=== PATIENT | male | born 1975 | race Caucasian/White ===

== ENCOUNTER 2024-02-22 16:45 | Emergency (ER) | payer OTHER, SELFPAY ==
--- NOTE | 2024-02-22 16:47 | ED.URI ---
HPI - URI/Sore Throat General Chief Complaint: Unspecified Stated Complaint: SOB,dizzy Time Seen by Provider: 02/22/24 16:47 Source: patient Mode of arrival: ambulatory Limitations: no limitations History of Present Illness HPI Narrative: Patient is a 48-year-old male who presents with 3 days of intermittent shortness of breath and 1 day of dizziness. Patient reports dizziness is upon standing. Denies the room spinning. Denies any changes in vision or headaches. Reports shortness of breath is sometimes with exertion and sometimes at rest. Denies any upper respiratory in symptoms, fever, chills, nausea, vomiting. Patient has reported frequent diarrhea. Patient stop taking metformin a month ago and stopped his Trulicity a week and half ago. Patient also reports abnormal salty taste in mouth when eating anything. Patient has had 30 lb weight loss in the last 3 months. Related Data Allergies Allergy/AdvReac Type Severity Reaction Status Date / Time Penicillins AdvReac Mild NAUSEA Verified 02/22/24 16:47 Review of Systems Review of Systems: All systems reviewed & are unremarkable except as noted in HPI and below Constitutional: Constitutional: Denies body ache(s), Denies chills, Denies fatigue, Denies fever(s), Denies headache(s), Denies malaise and Denies weakness Eyes: Eyes: Denies blurry vision, Denies itchy eyes and Denies loss of vision ENT: Denies otalgia, Denies headache(s), Denies nasal congestion, Denies sinus pain and Denies sore throat Cardiovascular: Cardiovascular: Denies chest pain, Denies irregular heart rhythm and Denies dyspnea Respiratory: Respiratory: Denies cough and Reports dyspnea Gastrointestinal: Gastrointestinal: Denies abdominal pain, Reports diarrhea, Denies nausea and Denies vomiting Musculoskeletal: Musculoskeletal: Denies back pain, Denies myalgias and Denies arthralgias Integumentary/Breasts: Skin/Breast: Denies pruritus and Denies rash Neurologic: Reports dizziness, Denies headache(s), Denies loss of vision and Denies weakness Psychiatric: Psychiatric: Reports no additional psychiatric complaints Endocrine: Endocrine: Denies fatigue Allergic/Immunologic: Allergic/Immunologic: Denies itchy eyes PMFSH Comments At time of signature, agree with nursing past medical, surgical, social and family history. There is no relevant family history pertinent to the presenting complaint. Exam Const: General: cooperative, healthy appearing, comfortable, no acute distress and well nourished Nutritional Appearance: well nourished Orientation/consciousness: patient oriented x3 Limitations: no limitations HENMT: Head: normal to inspection, normocephalic and atraumatic Ears: hearing grossly normal bilaterally, external ears normal, TM's normal bilaterally, EAC's normal and no periauricular adenopathy Face/Nose/Sinus: Normal external nose present, Normal nasal mucous membranes and turbinates present, normal facial exam, sinuses nontender and face symmetric Face and sinus: normal facial exam, sinuses nontender and face symmetric Mouth: Yes Normal oral and palatal mucosa present, Yes lip normal, Yes tongue normal, Yes Normal salivary glands and ducts present, Yes oropharynx normal and Yes moist mucous membranes Teeth and gingiva: dentition normal Throat: posterior oropharynx normal, tonsils normal and uvula midline Eyes: General: appearance normal, both eyes and all related structures Alignment and Position: alignment normal and position normal Periorbital: periorbital findings normal Eyelids: eyelids normal Pupils: Equal, round and reactive pupils present Neck: Neck: normal visual inspection, full ROM, no lymphadenopathy and supple Chest: Chest palpation & inspection: normal inspection of the chest and normal palpation of entire chest wall Resp: Effort & Inspection: normal respiratory effort and able to speak in complete sentences Auscultation: clear to auscultation bilaterally, no crackles, no rales, n
[2024-02-22 16:59] VITALS: BP 106/75; PULSE 83; RESP 16; TEMP 36.7; O2SAT 100
== END 2024-02-22 17:14 | disposition short-term general hospital (02) ==
PROVIDERS: Emergency Provider Nurse Practitioner Family; PCP Nurse Practitioner Family
DX: R42 Dizziness and giddiness (principal); R06.02 Shortness of breath; E11.9 Type 2 diabetes mellitus without complications
CPT/HCPCS: 99212; G0463

== ENCOUNTER 2024-02-22 17:32 | Emergency (ER) | payer OTHER, SELFPAY ==
--- NOTE | ~2024-02-22 | XR_ITS ---
EXAMINATION: XR chest 2V DATE: 02/22/2024 18:14 INDICATION: Dyspnea. TECHNIQUE: Frontal and lateral views of the chest were obtained. COMPARISON: None. FINDINGS: There is no pneumonia, pleural effusion, or pneumothorax. The heart size is normal. IMPRESSION: 1. No acute cardiopulmonary disease. Reviewed, dictated and finalized at location E.
[2024-02-22 17:33] VITALS: BP 125/78; PULSE 98; RESP 16; TEMP 36.1; O2SAT 98
--- NOTE | 2024-02-22 17:38 | ECG_ITS ---
SEE SCANNED COPY FOR CONFIRMED REPORT MTDD
--- NOTE | 2024-02-22 17:39 | ED.DIZZY ---
HPI - Dizziness General Chief Complaint: Dizziness <Lashaun Toney PA-C - Last Filed: 02/22/24 18:29> Stated Complaint: sob, dizzy <Lashaun Toney PA-C - Last Filed: 02/22/24 18:29> Time Seen by Provider: 02/22/24 18:57 <Lashaun Toney PA-C - Last Filed: 02/22/24 18:29> Focused HPI: 48-year-old male with history of type 2 diabetes presents to the emergency department for shortness of breath and lightheadedness for the past 3 days. He denies cough or congestion, chest pain or syncope, nausea or vomiting. He states he discontinued his metformin and Trulicity approximately 1 month ago due to side effects and insurance issues. Denies dysuria or hematuria, fever, lower extremity edema or history of VTE, Hemoptysis, recent surgeries or hospitalizations, syncope. Denies history of COPD or asthma, smoking, drug or alcohol use. States he has not been eating or drinking well. GENERAL: Well-appearing, well-nourished, and in no acute distress. HEAD: Normocephalic, atraumatic. CHEST: Clear to auscultation. ?No respiratory distress. HEART: Regular rate and rhythm.? EXTREMITIES: No edema, negative Homans bilaterally. NEURO: ?Alert and oriented x3. Patient screened in triage and initial orders placed.? ?Additional care and disposition to be based upon?diagnostic testing and treatment. He is PERC negative. <Lashaun Toney PA-C - Last Filed: 02/22/24 18:29> Related Data Allergies/Adverse Reactions: Allergies Allergy/AdvReac Type Severity Reaction Status Date / Time Penicillins AdvReac Mild NAUSEA Verified 02/22/24 16:47 <Lashaun Toney PA-C - Last Filed: 02/22/24 18:29> Review of Systems Review of Systems: All systems reviewed & are unremarkable except as noted in HPI and below (HPI) <Humberto Henry MD - Last Filed: 02/22/24 22:44> PMFSH Past Medical History Medical History: Medical History T2DM (type 2 diabetes mellitus) <Lashaun Toney PA-C - Last Filed: 02/22/24 18:29> Surgical History Surgical History: Surgical History History of colectomy <Lashaun Toney PA-C - Last Filed: 02/22/24 18:29> Exam Narrative: GENERAL: Well-developed, well-nourished, and in no acute distress. HEAD: Normocephalic, atraumatic. EYES: PERRLA and EOMI. CHEST: Clear to auscultation. No respiratory distress. No wheezes rales or rhonchi HEART: Regular rate and rhythm. No murmur heard. Normal peripheral pulses. ABDOMEN: Soft, nontender, nondistended, normal active bowel sounds. EXTREMITIES: Normal range of motion. No edema. SKIN: Warm, dry, no rash. NEURO: Alert and oriented x3. No focal deficit. Moving all 4 limbs spontaneously PSYCH: Normal mood and affect. <Humberto Henry MD - Last Filed: 02/22/24 22:44> Course Course Emergency Course: 19:10 - I agree with the HPI as obtained during the MSE. CBC unremarkable. CMP demonstrates hypokalemia with potassium of 2.1. Repletion on going. Total bilirubin slightly elevated 1.6 but is otherwise unremarkable. Troponin negative. Chest x-ray not concerning for acute cardiopulmonary process. The patient tested negative for influenza, RSV and COVID. Bedside ultrasound for by me is not concerning for B-lines on lung mehta. Parasternal long axis view was technically difficult, unable to assess ePSS. Will add BNP, re-evaluate chemistries after the potassium repletion with plan for discharge. 22:39 - Repeat potassium improved to 2.6. I discussed treatment options with the patient including discharge with oral supplementation versus admission for IV repletion. The patient prefers to be discharged. I discussed the findings and recommendations with the patient. Discussed return and emergency precautions including signs/symptoms of ACS, respiratory distress. The patient voiced understanding and agreement with the plan. All questions answered to his satisfaction. <Humberto Henry MD - Last Filed: 02/22/24 22:44> Vital Signs Vital signs: Vital Signs Temperature 97.0 F L 02/22/24 17:33 Pulse Rate 98 02/22/24 17:33 Respiratory Rate 16 02/22/24 17:33 Blood Pressure 125/78 02/22/24 17:33 Pulse Oximetry 98 02/22/24 17:33 Oxygen Delivery Room Air 02/22/24 17:33 Temperature 97.0 F L 02/22/24 17:33 Pulse Rate 86 02/22/24 21:36 Respiratory Rate 18 02/22/24 21:36 Blood Pressure 126/83 02/22/24 21:36 Pulse Oximetry 100 02/22/24 21:36 Oxygen Delivery Room Air 02/22/24 17:33 <Lashaun Toney PA-C - Last Filed: 02/22/24 18:29> Vital Signs Temperature 97.0 F L 02/22/24 17:33 Pulse Rate 98 02/22/24 17:33 Respiratory Rate 16 02/22/24 17:33 Blood Pressure 125/78 02/22/24 17:33 Pulse Oximetry 98 02/22/24 17:33 Oxygen Delivery Room Air 02/22/24 17:33 Temperature 97.0 F L 02/22/24 17:33 Pulse Rate 86 02/22/24 21:36 Respiratory Rate 18 02/22/24 21:36 Blood Pressure 126/83 02/22/24 21:36 Pulse Oximetry 100 02/22/24 21:36 Oxygen Delivery Room Air 02/22/24 17:33 <Humberto Henry MD - Last Filed: 02/22/24 22:44> MDM - Dizziness MDM Narrative Medical decision making narrative: Plan: Labs, EKG, troponin BNP, imaging, bedside ultrasound, reassess <Humberto Henry MD - Last Filed: 02/22/24 22:44> Differential Diagnosis Differential diagnosis: Likely orthostatic hypotension and other (Metabolic abnormality, ACS, CHF, anemia, other) <Humberto Henry MD - Last Filed: 02/22/24 22:44> Lab Data Result diagrams: 02/22/24 17:54 02/22/24 22:09 <Lashaun Toney PA-C - Last Filed: 02/22/24 18:29> Labs: Lab Results 02/22/24 02/22/24 02/22/24 Range/Units 17:54 17:57 19:26 WBC 5.0 (4.5-10.0) K/mm3 RBC 4.90 (4.6-6.20) M/mm3 Hgb 14.2 (14.0-18.0) g/dL Hct 40.6 L (42.0-52.0) % MCV 82.9 (80-100) fl MCH 29.0 (26-34) pg MCHC 35.0 (32-36) g/dl RDW 13.8 (11.5-14.5) % Plt Count 142 L (150-375) k/mm3 MPV 11.9 H (7.4-10.4) fl Immature Gran % (Auto) 0.2 (0-0.5) % Neut % (Auto) 50.7 (45.5-73.1) % Lymph % (Auto) 35.8 (18.3-44.2) % [place] % (Auto) 8.1 (2.6-8.5) % Eos % (Auto) 4.8 H (0-4.4) % Baso % (Auto) 0.4 (0.2-1.2) % Lymph # (Auto) 1.77 (0.9-3.2) K/mm3 [place] # (Auto) 0.4 (0.1-0.6) K/mm3 Eos # (Auto) 0.2 (0-0.3) K/mm3 Baso # (Auto) 0.0 (0.0-0.1) K/mm3 Abs Immat Gran (auto) 0.01 (0.00-0.031) K/mm3 Absolute Neuts (auto) 2.5 (1.3-6.7) K/mm3 Absolute Nucleated RBC 0.000 (0.0-0.012) K/mm3 Nucleated RBC % 0.0 (0.0-0.2) % PT 14.6 (11.1-14.7) Seconds INR 1.1 APTT 28.3 (22.3-36.8) Seconds Sodium 141 (137-145) mmol/L Potassium 2.1 L* (3.4-5.0) mmol/L Chloride 103 (98-107) mmol/L Carbon Dioxide 30 (22-30) mmol/L Anion Gap 8 (4-12) mmol/L BUN 15 (9-20) mg/dL Creatinine 0.70 (0.7-1.3) mg/dL Estim Creat Clear Calc 114 ml/min Estimated GFR > 60 (59 - ) Glucose 125 H (65-110) mg/dL Lactic Acid 1.2 (0.7-2.0) mmol/L Calcium 8.7 (8.4-10.2) mg/dL Magnesium 1.9 (1.6-2.3) mg/dL Total Bilirubin 1.6 H (0.2-1.3) mg/dL AST 37 (17-59) U/L ALT 25 (6-50) U/L Alkaline Phosphatase 112 (38-126) U/L Troponin I < 0.012 (0.000-0.034) ng/mL NT-Pro-B Natriuret Pep 60 (19.9-100) pg/mL Total Protein 7.0 (6.3-8.2) g/dL Albumin 4.0 (3.5-5.1) g/dL Urine Color Dark yellow (Yellow) Urine Appearance Cloudy H (Clear) Urine pH 6.5 (5.0-9.0) Ur Specific [place] 1.020 (1.001-1.035) Urine Protein 2+ H (Negative) mg/dL Urine Glucose (UA) Negative (Negative) mg/dL Urine Ketones Trace H (Negative) mg/dL Ur Blood (Man) 3+ H (Negative) Urine Nitrate Negative (Negative) Urine Bilirubin 1+ H (Negative) Urine Urobilinogen 1.0 (<2.0) mg/dL Leukocyte Esterase Rfl Trace H (Negative) ASHU/UL Urine RBC >100 H (0-2) /hpf Urine WBC 6-10 H (0-3) /hpf Ur Squamous Epith Cells Moderate (Few) /hpf Urine Bacteria None seen /hpf Urine Casts >20 Hyaline Casts Present (None) /lpf Influenza A (RT-PCR) Negative (Negative) Influenza B (RT-PCR) Negative (Negative) RSV (RT-PCR) Negative (Negative) SARS-CoV-2 RNA (RT-PCR) Negative (Negative) 02/22/24 Range/Units 22:09 WBC (4.5-10.0) K/mm3 RBC (4.6-6.20) M/mm3 Hgb (14.0-18.0) g/dL Hct (42.0-52.0) % MCV (80-100) fl MCH (26-34) pg MCHC (32-36) g/dl RDW (11.5-14.5) % Plt Count (150-375) k/mm3 MPV (7.4-10.4) fl Immature Gran % (Auto) (0-0.5) % Neut % (Auto) (45.5-73.1) % Lymph % (Auto) (18.3-44.2) % [place] % (Auto) (2.6-8.5) % Eos % (Auto) (0-4.4) % Baso % (Auto) (0.2-1.2) % Lymph # (Auto) (0.9-3.2) K/mm3 [place] # (Auto) (0.1-0.6) K/mm3 Eos # (Auto) (0-0.3) K/mm3 Baso # (Auto) (0.0-0.1) K/mm3 Abs Immat Gran (auto) (0.00-0.031) K/mm3 Absolute Neuts (auto) (1.3-6.7) K/mm3 Absolute Nucleated RBC (0.0-0.012) K/mm3 Nucleated RBC % (0.0-0.2) % PT (11.1-14.7) Seconds INR APTT (22.3-36.8) Seconds Sodium (137-145) mmol/L Potassium 2.6 L* (3.4-5.0) mmol/L Chloride (98-107) mmol/L Carbon Dioxide (22-30) mmol/L Anion Gap (4-12) mmol/L BUN (9-20) mg/dL Creatinine (0.7-1.3) mg/dL Estim Creat Clear Calc ml/min Estimated GFR (59 - ) Glucose (65-110) mg/dL Lactic Acid (0.7-2.0) mmol/L Calcium (8.4-10.2) mg/dL Magnesium (1.6-2.3) mg/dL Total Bilirubin (0.2-1.3) mg/dL AST (17-59) U/L ALT (6-50) U/L Alkaline Phosphatase (38-126) U/L Troponin I (0.000-0.034) ng/mL NT-Pro-B Natriuret Pep (19.9-100) pg/mL Total Protein (6.3-8.2) g/dL Albumin (3.5-5.1) g/dL Urine Color (Yellow) Urine Appearance (Clear) Urine pH (5.0-9.0) Ur Specific [place] (1.001-1.035) Urine Protein (Negative) mg/dL Urine Glucose (UA) (Negative) mg/dL Urine Ketones (Negative) mg/dL Ur Blood (Man) (Negative) Urine Nitrate (Negative) Urine Bilirubin (Negative) Urine Urobilinogen (<2.0) mg/dL Leukocyte Esterase Rfl (Negative) ASHU/UL Urine RBC (0-2) /hpf Urine WBC (0-3) /hpf Ur Squamous Epith Cells (Few) /hpf Urine Bacteria /hpf Urine Casts Hyaline Casts (None) /lpf Influenza A (RT-PCR) (Negative) Influenza B (RT-PCR) (Negative) RSV (RT-PCR) (Negative) SARS-CoV-2 RNA (RT-PCR) (Negative) <Lashaun Toney PA-C - Last Filed: 02/22/24 18:29> Lab Results 02/22/24 02/22/24 02/22/24 Range/Units 17:54 17:57 19:26 WBC 5.0 (4.5-10.0) K/mm3 RBC 4.90 (4.6-6.20) M/mm3 Hgb 14.2 (14.0-18.0) g/dL Hct 40.6 L (42.0-52.0) % MCV 82.9 (80-100) fl MCH 29.0 (26-34) pg MCHC 35.0 (32-36) g/dl RDW 13.8 (11.5-14.5) % Plt Count 142 L (150-375) k/mm3 MPV 11.9 H (7.4-10.4) fl Immature Gran % (Auto) 0.2 (0-0.5) % Neut % (Auto) 50.7 (45.5-73.1) % Lymph % (Auto) 35.8 (18.3-44.2) % [place] % (Auto) 8.1 (2.6-8.5) % Eos % (Auto) 4.8 H (0-4.4) % Baso % (Auto) 0.4 (0.2-1.2) % Lymph # (Auto) 1.77 (0.9-3.2) K/mm3 [place] # (Auto) 0.4 (0.1-0.6) K/mm3 Eos # (Auto) 0.2 (0-0.3) K/mm3 Baso # (Auto) 0.0 (0.0-0.1) K/mm3 Abs Immat Gran (auto) 0.01 (0.00-0.031) K/mm3 Absolute Neuts (auto) 2.5 (1.3-6.7) K/mm3 Absolute Nucleated RBC 0.000 (0.0-0.012) K/mm3 Nucleated RBC % 0.0 (0.0-0.2) % PT 14.6 (11.1-14.7) Seconds INR 1.1 APTT 28.3 (22.3-36.8) Seconds Sodium 141 (137-145) mmol/L Potassium 2.1 L* (3.4-5.0) mmol/L Chloride 103 (98-107) mmol/L Carbon Dioxide 30 (22-30) mmol/L Anion Gap 8 (4-12) mmol/L BUN 15 (9-20) mg/dL Creatinine 0.70 (0.7-1.3) mg/dL Estim Creat Clear Calc 114 ml/min Estimated GFR > 60 (59 - ) Glucose 125 H (65-110) mg/dL Lactic Acid 1.2 (0.7-2.0) mmol/L Calcium 8.7 (8.4-10.2) mg/dL Magnesium 1.9 (1.6-2.3) mg/dL Total Bilirubin 1.6 H (0.2-1.3) mg/dL AST 37 (17-59) U/L ALT 25 (6-50) U/L Alkaline Phosphatase 112 (38-126) U/L Troponin I < 0.012 (0.000-0.034) ng/mL NT-Pro-B Natriuret Pep 60 (19.9-100) pg/mL Total Protein 7.0 (6.3-8.2) g/dL Albumin 4.0 (3.5-5.1) g/dL Urine Color Dark yellow (Yellow) Urine Appearance Cloudy H (Clear) Urine pH 6.5 (5.0-9.0) Ur Specific [place] 1.020 (1.001-1.035) Urine Protein 2+ H (Negative) mg/dL Urine Glucose (UA) Negative (Negative) mg/dL Urine Ketones Trace H (Negative) mg/dL Ur Blood (Man) 3+ H (Negative) Urine Nitrate Negative (Negative) Urine Bilirubin 1+ H (Negative) Urine Urobilinogen 1.0 (<2.0) mg/dL Leukocyte Esterase Rfl Trace H (Negative) ASHU/UL Urine RBC >100 H (0-2) /hpf Urine WBC 6-10 H (0-3) /hpf Ur Squamous Epith Cells Moderate (Few) /hpf Urine Bacteria None seen /hpf Urine Casts >20 Hyaline Casts Present (None) /lpf Influenza A (RT-PCR) Negative (Negative) Influenza B (RT-PCR) Negative (Negative) RSV (RT-PCR) Negative (Negative) SARS-CoV-2 RNA (RT-PCR) Negative (Negative) 02/22/24 Range/Units 22:09 WBC (4.5-10.0) K/mm3 RBC (4.6-6.20) M/mm3 Hgb (14.0-18.0) g/dL Hct (42.0-52.0) % MCV (80-100) fl MCH (26-34) pg MCHC (32-36) g/dl RDW (11.5-14.5) % Plt Count (150-375) k/mm3 MPV (7.4-10.4) fl Immature Gran % (Auto) (0-0.5) % Neut % (Auto) (45.5-73.1) % Lymph % (Auto) (18.3-44.2) % [place] % (Auto) (2.6-8.5) % Eos % (Auto) (0-4.4) % Baso % (Auto) (0.2-1.2) % Lymph # (Auto) (0.9-3.2) K/mm3 [place] # (Auto) (0.1-0.6) K/mm3 Eos # (Auto) (0-0.3) K/mm3 Baso # (Auto) (0.0-0.1) K/mm3 Abs Immat Gran (auto) (0.00-0.031) K/mm3 Absolute Neuts (auto) (1.3-6.7) K/mm3 Absolute Nucleated RBC (0.0-0.012) K/mm3 Nucleated RBC % (0.0-0.2) % PT (11.1-14.7) Seconds INR APTT (22.3-36.8) Seconds Sodium (137-145) mmol/L Potassium 2.6 L* (3.4-5.0) mmol/L Chloride (98-107) mmol/L Carbon Dioxide (22-30) mmol/L Anion Gap (4-12) mmol/L BUN (9-20) mg/dL Creatinine (0.7-1.3) mg/dL Estim Creat Clear Calc ml/min Estimated GFR (59 - ) Glucose (65-110) mg/dL Lactic Acid (0.7-2.0) mmol/L Calcium (8.4-10.2) mg/dL Magnesium (1.6-2.3) mg/dL Total Bilirubin (0.2-1.3) mg/dL AST (17-59) U/L ALT (6-50) U/L Alkaline Phosphatase (38-126) U/L Troponin I (0.000-0.034) ng/mL NT-Pro-B Natriuret Pep (19.9-100) pg/mL Total Protein (6.3-8.2) g/dL Albumin (3.5-5.1) g/dL Urine Color (Yellow) Urine Appearance (Clear) Urine pH (5.0-9.0) Ur Specific [place] (1.001-1.035) Urine Protein (Negative) mg/dL Urine Glucose (UA) (Negative) mg/dL Urine Ketones (Negative) mg/dL Ur Blood (Man) (Negative) Urine Nitrate (Negative) Urine Bilirubin (Negative) Urine Urobilinogen (<2.0) mg/dL Leukocyte Esterase Rfl (Negative) ASHU/UL Urine RBC (0-2) /hpf Urine WBC (0-3) /hpf Ur Squamous Epith Cells (Few) /hpf Urine Bacteria /hpf Urine Casts Hyaline Casts (None) /lpf Influenza A (RT-PCR) (Negative) Influenza B (RT-PCR) (Negative) RSV (RT-PCR) (Negative) SARS-CoV-2 RNA (RT-PCR) (Negative) <Humberto Henry MD - Last Filed: 02/22/24 22:44> ECG Data EKG #1: Attestation: I personally reviewed and interpreted this ECG as follows: <Humberto Henry MD - Last Filed: 02/22/24 22:44> ECG completion date: 02/22/24 <Humberto Henry MD - Last Filed: 02/22/24 22:44> ECG completion time: 17:59 <Humberto Henry MD - Last Filed: 02/22/24 22:44> Prior ECG tracings: not available for review <Humberto Henry MD - Last Filed: 02/22/24 22:44> Interpretation: Sinus rhythm, rate 93, normal axis, no ST segment elevations or T-wave inversions concerning for ischemia normal intervals with QTC of 437. <Humberto Henry MD - Last Filed: 02/22/24 22:44> Discharge Plan Discharge Clinical Impression: Acute hypokalemia, Light-headedness, Acute UTI <Lashaun Toney PA-C - Last Filed: 02/22/24 18:29> Patient Disposition: Home, Self-Care <Lashaun Toney PA-C - Last Filed: 02/22/24 18:29> Condition: Stable <Lashaun Toney PA-C - Last Filed: 02/22/24 18:29> Instructions: Antibiotic Form, Urinary Tract Infection in Men (ED), Hypokalemia (ED), Lightheadedness (ED) <Lashaun Toney PA-C - Last Filed: 02/22/24 18:29> Additional Instructions: You were seen in the emergency department. I suspect your symptoms are related to urinary tract infection and low potassium. Your given potassium in the emergency department. I recommend following up with your primary care doctor. If you develop chest pain, difficulty breathing, loss of consciousness, or if you have other emergent concerns for life, limb, or eyesight, return to the emergency department. <Lashaun Toney PA-C - Last Filed: 02/22/24 18:29> Prescriptions: New cefuroxime axetil 500 mg tablet 500 mg PO Q12H Qty: 14 0RF potassium chloride 20 mEq packet 20 meq PO BID Qty: 30 0RF <Lashaun Toney PA-C - Last Filed: 02/22/24 18:29> Follow-up/Referrals: Copeland,Jose Sandoval APRN [Primary Care Provider] - 1 Week (For repeat potassium check) <Lashaun Toney PA-C - Last Filed: 02/22/24 18:29> Time of Disposition: 22:44 <Lashaun Toney PA-C - Last Filed: 02/22/24 18:29> 22:44 <Humberto Henry MD - Last Filed: 02/22/24 22:44>
[2024-02-22 18:07] LABS: Basophils Percent Auto 0.4 % (0.2-1.2); Eosinophils Absolute Auto 0.2 K/mm3 (0-0.3); Eosinophils Percent Auto 4.8 % (0-4.4); Hematocrit 40.6 % (42.0-52.0); Hemoglobin 14.2 g/dL (14.0-18.0); Immature Granulocyte Absolute 0.01 K/mm3 (0.00-0.031); Immature Granulocyte Percent A 0.2 % (0-0.5); Lymphocytes Absolute Auto 1.77 K/mm3 (0.9-3.2); Lymphocytes Percent Auto 35.8 % (18.3-44.2); Mean Corpuscular Volume 82.9 fl (80-100); Mean Platelet Volume 11.9 fl (7.4-10.4); Monocytes Absolute Auto 0.4 K/mm3 (0.1-0.6); Monocytes Percent Auto 8.1 % (2.6-8.5); Neutrophils Absolute Auto 2.5 K/mm3 (1.3-6.7); Neutrophils Percent Auto 50.7 % (45.5-73.1); Platelet Count Result 142 k/mm3 (150-375); Red Cell Distribution Width 13.8 % (11.5-14.5)
[2024-02-22 18:17] LABS: INR 1.1; Prothrombin Time 14.6 Seconds (11.1-14.7)
[2024-02-22 18:18] LABS: Partial Thromboplastin Time 28.3 Seconds (22.3-36.8)
[2024-02-22 18:22] LABS: Lactic Acid Reflex 1.2 mmol/L (0.7-2.0)
[2024-02-22 18:23] VITALS: BP 115/71; PULSE 87
[2024-02-22 18:25] VITALS: BP 109/70; PULSE 88
[2024-02-22 18:26] VITALS: BP 96/67; PULSE 99
[2024-02-22 18:30] LABS: Alanine Aminotransferase 25 U/L (6-50); Alkaline Phosphatase 112 U/L (38-126); Anion Gap 8 mmol/L (4-12); Aspartate Amino Transferase 37 U/L (17-59); Bilirubin,Total 1.6 mg/dL (0.2-1.3); Blood Urea Nitrogen 15 mg/dL (9-20); Calcium 8.7 mg/dL (8.4-10.2); Carbon Dioxide 30 mmol/L (22-30); Chloride 103 mmol/L (98-107); Estimated CRCL calculation 114 ml/min; Estimated Glomerular Filt Rate > 60; Glucose 125 mg/dL (65-110); Magnesium 1.9 mg/dL (1.6-2.3); Potassium 2.1 mmol/L (3.4-5.0); Sodium 141 mmol/L (137-145)
[2024-02-22 18:33] LABS: Troponin I < 0.012 ng/mL (0.000-0.034)
[2024-02-22 18:43] LABS: Influenza A QL RT-PCR Negative (Negative); Influenza B QL RT-PCR Negative (Negative); RSV RNA, RT-PCR Negative (Negative); SARS-CoV-2 RNA PCR Negative (Negative)
[2024-02-22] MEDS: POTASSIUM CHLORIDE 20 MEQ PACKET (FOR LIQUID) 40 MEQ PO (18:49)
[2024-02-22] MEDS: POTASSIUM CHLORIDE INJ 40 MEQ in SODIUM CHLORIDE 0.9% IV 500 ML 130 MEQ IVPB (18:49)
[2024-02-22 19:46] LABS: NT Pro B Type Natriuretic Pept 60 pg/mL (19.9-100)
[2024-02-22 20:17] LABS: Appearance Urine Cloudy (Clear); Bacteria Urine None Seen /hpf; Bilirubin Urine 1+ (Negative); Blood Urine 3+ (Negative); Color Urine Dark Yellow (Yellow); Glucose Urine UA Negative (Negative); Hyaline Casts Urine Present /lpf; Ketones Urine Trace mg/dL (Negative); Leukocyte Esterase Ur Trace LEU/UL (Negative); Nitrate Urine Negative (Negative); Non Pathogenic Casts >20; Protein Urine 2+ mg/dL (Negative); RBC Urine >100 /hpf (0-2); Squamous Epithelial Cell Urine Moderate /hpf (Few); pH Urine 6.5 (5.0-9.0)
[2024-02-22 20:18] LABS: Add Urine Microscopic? YES
[2024-02-22] MEDS: cefuroxime axetiL 250 MG TABLET 500 MG PO (21:29)
[2024-02-22 21:36] VITALS: BP 126/83; PULSE 86; RESP 18; O2SAT 100
[2024-02-22 22:30] LABS: Potassium 2.6 mmol/L (3.4-5.0)
[2024-02-22 22:53] VITALS: BP 124/88; PULSE 78; RESP 15; O2SAT 100
== END 2024-02-22 22:54 | disposition home or self-care (01) ==
PROVIDERS: Physician Assistant; Emergency Provider Preventive Medicine Aerospace Medicine; PCP Nurse Practitioner Family
DX: N39.0 Urinary tract infection, site not specified (principal); R42 Dizziness and giddiness; E87.6 Hypokalemia; Z20.822 Contact with and (suspected) exposure to COVID-19; E11.9 Type 2 diabetes mellitus without complications; Z90.49 Acquired absence of other specified parts of digestive tract; I45.9 Conduction disorder, unspecified
CPT/HCPCS: 36415; 71046; 80053; 81001; 83605; 83735; 83880; 84132; 84484; 85025; 85610; 85730; 87086; 87088; 87637; 93005; 96365; 96366; 99284; A9270; J3480; J7040

== ENCOUNTER 2024-02-23 16:24 | Inpatient (IN) | payer OTHER, SELFPAY ==
[2024-02-23] VITALS (10 sets, daily range): BP systolic 122–168; BP diastolic 77–92; PULSE 69–83; RESP 12–19; TEMP 36.4–37.1; O2SAT 100; BMI 24.5
--- NOTE | ~2024-02-23 | CT_ITS ---
EXAMINATION: CT abdomen pelvis w con DATE: 02/23/2024 17:25 INDICATION: Left flank pain TECHNIQUE: Computed tomography (CT) of the abdomen and pelvis was performed with 100 mL Omnipaque-350 intravenous contrast. Automated exposure control and iterative reconstruction technique were employe d. The dose-length product was 403.65 mGy-cm. COMPARISON: 04/03/2009, report only. FINDINGS: Lower thorax: Mild symmetric gynecomastia. Liver: Normal. Biliary/Gallbladder: Dilated gallbladder. Dependent hyperdensities, likely gallstones. No bile duct d ilation. Pancreas: Moderate fatty atrophy. Spleen: Splenomegaly. Adrenals:No mass. Kidneys: Delayed left nephrogram. Bilateral nonobstructing calculi. Mild left perinephric stranding. Mild left pelviectasis and caliectasis. 5 mm calcification in the left UVJ. GI tract: Mild distal esophageal and gastric wall edema. Descending colon, sigmoid, and rectal wall e lydia. Uncomplicated sigmoid anastomosis. No small or large bowel dilation. Appendix not confidently i dentified. Mesentery/Peritoneum: Upper abdominal, periaortic and pelvic lymphadenopathy. Retroperitoneum: No mass. Pelvis: Pelvic organs are within normal limits. Soft Tissues: Mild body wall edema. Bilateral inguinal lymphadenopathy. Bones: No acute osseous finding. IMPRESSION: Mild esophagitis/gastritis. Cholelithiasis. Gallbladder hydrops, may be secondary to fasting or obstruction, no inflammatory alejandro ges detected. Splenomegaly with abdominopelvic lymphadenopathy, correlate for history of lymphoproliferative diseas e. 5 mm left UVJ stone causing mild-moderate obstructive uropathy. Distal colitis/proctitis. Reviewed, dictated and finalized at location K. IMPRESSION: Mild esophagitis/gastritis. Cholelithiasis. Gallbladder hydrops, may be secondary to fasting or obstruction , no inflammatory changes detected. Splenomegaly with abdominopelvic lymphadenopathy, correlate for history of lymp hoproliferative disease. 5 mm left UVJ stone causing mild-moderate obstructive uropathy. Distal colitis/proctitis.
--- NOTE | ~2024-02-23 | CT_ITS ---
EXAMINATION: CT abdomen pelvis wo con DATE: 02/26/2024 09:07 INDICATION: Left ureteral stone. TECHNIQUE: Computed tomography (CT) of the abdomen and pelvis was performed without intravenous contr ast. Automated exposure control and iterative reconstruction technique were employed. The dose-length product was 219.38 mGy-cm. COMPARISON: CT abdomen and pelvis 02/23/2024 FINDINGS: The visualized portions of the lung bases demonstrate mild atelectasis. No pleural effusion . The heart size is normal. No pericardial effusion. The liver and spleen are normal. There is a gall stone in the gallbladder, which is normal in size. The pancreas and adrenal glands are normal. There is a 4 mm stone in right kidney. There is mild left hydronephrosis. There is a persistent left-sided contrast nephrogram. There are approximately 4 stones in left kidney measuring up to 4 mm. There are 4 stones in proximal left ureter measuring up to 4 mm. There is an anastomosis in the rectosigmoid. T here are no dilated loops of bowel. There are changes of appendectomy. There are no pathologically en larged lymph nodes. There is no free intraperitoneal fluid. There is mild thoracic and lumbar spondyl osis. IMPRESSION: 1. 4 stones in proximal left ureter measuring up to 4 mm with mild left hydronephrosis. 2. Bilateral nonobstructing kidney stones. Reviewed, dictated and finalized at location E. IMPRESSION: 1. 4 stones in proximal left ureter measuring up to 4 mm with mild left hydrone phrosis. 2. Bilateral nonobstructing kidney stones.
--- NOTE | ~2024-02-23 | XR_ITS ---
EXAMINATION: XR retrograde pyelo w/stent LT DATE: 02/26/2024 12:09 INDICATION: Left internal ureteral stent placement TECHNIQUE: Fluoroscopic images from a left internal ureteral stent placement are submitted for review . 11 seconds of fluoroscopy time. FINDINGS: There is a left double-J internal ureteral stent projecting in expected position, with proximal Douglas loop at the level of the renal pelvis and distal loop in the pelvis within the bladder lumen. IMPRESSION: 1. Left internal ureteral stent placement. Please refer to real-time procedural findings for detail s. Reviewed, dictated and finalized at location B. IMPRESSION: 1. Left internal ureteral stent placement. Please refer to real-time procedur al findings for details.
--- NOTE | ~2024-02-23 | CT_ITS ---
EXAMINATION:CT diagnostic chest w con DATE: 02/25/2024 09:35 INDICATION: Lymphadenopathy. TECHNIQUE: Computed tomography (CT) of the chest was performed with 75 mL Omnipaque 350 intravenous c ontrast. Automated exposure control and iterative reconstruction technique were employed. The dose-le ngth product (DLP) was 227.56 mGy-cm. COMPARISON: CT abdomen and pelvis 02/23/2024 FINDINGS: The lungs demonstrate mild atelectasis. Calcified right lung nodules are consistent with ol d granulomatous disease. No pleural effusion. The heart size is normal. No pericardial effusion. Ther e are no pathologically enlarged lymph nodes. There are gallstones in the gallbladder, which is raphael l in size. There is cortical thinning of right kidney. There is mild thoracic spondylosis. IMPRESSION: 1. No chest lymphadenopathy. Reviewed, dictated and finalized at location E.
--- NOTE | ~2024-02-23 | XR_ITS ---
EXAMINATION: XR abdomen/kub 1V DATE: 02/24/2024 19:31 INDICATION: Kidney stone. TECHNIQUE: A supine view of the abdomen on 2 radiographs was obtained. COMPARISON: CT abdomen and pelvis 02/23/24 FINDINGS: There are no dilated loops of bowel. There is no visible urolithiasis. IMPRESSION: 1. No visible urolithiasis. Reviewed, dictated and finalized at location E. IMPRESSION: 1. No visible urolithiasis.
--- NOTE | 2024-02-23 16:43 | ED.NAVMDI ---
HPI - Nausea/Vomiting/Diarrhea General Chief complaint: Nausea/Vomiting/Diarrhea Stated complaint: n/v Time Seen by Provider: 02/23/24 16:25 History of Present Illness HPI Narrative: This is a 48-year-old male who returns to the emergency department complaining of left flank pain nausea and vomiting. The patient was seen here yesterday evening for lightheadedness and was found to be hypokalemic. His urinalysis at that time showed changes consistent with UTI. The patient complains of sharp left flank pain, rated 7/10 without radiation. He states he has vomited several times eyes bleeding. He has no other complaints at this time. Related Data Allergies Allergy/AdvReac Type Severity Reaction Status Date / Time Penicillins AdvReac Mild NAUSEA Verified 02/23/24 17:52 Review of Systems Review of Systems: CONSTITUTIONAL: Denies fever, chills, or sweats. ENT: Denies rhinorrhea, congestion, sore throat, or otalgia. CARDIOVASCULAR: Denies chest pain, palpitations, or edema. RESPIRATORY: Denies cough or dyspnea. GASTROINTESTINAL: Left flank pain, nausea and nonbloody vomiting Denies abdominal pain, or diarrhea. GENITOURINARY: Denies dysuria or hematuria. SKIN: Denies rash or itching. MUSCULOSKELETAL: Denies back pain, joint pain, or myalgia. NEUROLOGIC: Denies headache, numbness, dizziness, or weakness. PSYCHIATRIC: Denies anxiety or depression. PMFSH Past Medical History Medical History T2DM (type 2 diabetes mellitus) Surgical History Surgical History History of colectomy Exam Narrative: GENERAL: Well-developed, well-nourished, and in no acute distress. HEAD: Normocephalic, atraumatic. EYES: PERRLA and EOMI. CHEST: Clear to auscultation. No respiratory distress. No wheezes rales or rhonchi HEART: Regular rate and rhythm. No murmur heard. Normal peripheral pulses. ABDOMEN: Soft, left flank tenderness to palpation, without rebound or guarding, nondistended, normal active bowel sounds. No right CVA tenderness EXTREMITIES: Normal range of motion. No edema. SKIN: Warm, dry, no rash. NEURO: Alert and oriented x3. No focal deficit. Moving all 4 limbs spontaneously PSYCH: Normal mood and affect. Course Course Emergency Course: 19:20 - CBC unremarkable. Chemistries demonstrate hypokalemia with potassium of 2.4. Magnesium 0.9. Chemistries otherwise unremarkable. CT abdomen pelvis demonstrates a 5 mm proximal kidney stone on the left side. After IV fluids and and nausea medications, the patient continues to be nauseous and has vomited. I discussed the patient with hospitalist, Dr. Hannah who accepts admission. Vital Signs Vital signs: Vital Signs Pulse Rate 73 02/23/24 16:36 Respiratory Rate 19 02/23/24 16:36 Blood Pressure 150/87 H 02/23/24 16:36 Pulse Oximetry 100 02/23/24 16:36 Oxygen Delivery Room Air 02/23/24 16:36 Temperature 97.6 F 02/23/24 16:42 Pulse Rate 83 02/23/24 19:01 Respiratory Rate 18 02/23/24 19:01 Blood Pressure 141/86 H 02/23/24 19:01 Pulse Oximetry 100 02/23/24 19:01 Oxygen Delivery Room Air 02/23/24 16:36 MDM - Nausea/Vomiting/Diarrhea MDM Narrative Medical decision making narrative: Plan: Labs, imaging, antiemetics, IV fluids, pain control, reassess Differential Diagnosis Differential diagnosis: Likely dehydration and other (Pyelonephritis, nephrolithiasis, metabolic abnormality, gastroenteritis, other) Lab Data 02/23/24 16:41 02/23/24 16:41 Labs: Lab Results 02/23/24 Range/Units 16:41 WBC 5.1 (4.5-10.0) K/mm3 RBC 5.02 (4.6-6.20) M/mm3 Hgb 14.4 (14.0-18.0) g/dL Hct 42.4 (42.0-52.0) % MCV 84.5 (80-100) fl MCH 28.7 (26-34) pg MCHC 34.0 (32-36) g/dl RDW 13.9 (11.5-14.5) % Plt Count 127 L (150-375) k/mm3 MPV 11.1 H (7.4-10.4) fl Immature Gran % (Auto) 0.2 (0-0.5) %
[2024-02-23] MEDS: ONDANSETRON INJ 4 MG/2 ML VIAL IV PUSH (16:46)
[2024-02-23] MEDS: LACTATED RINGERS 2,000 ML 999 ML IV CONT (16:46)
[2024-02-23] MEDS: MORPHINE SULFATE (*CRX) 4 MG/ML INJ IV PUSH (16:46)
[2024-02-23 16:49] LABS: Basophils Percent Auto 0.4 % (0.2-1.2); Eosinophils Absolute Auto 0.1 K/mm3 (0-0.3); Eosinophils Percent Auto 1.9 % (0-4.4); Hematocrit 42.4 % (42.0-52.0); Hemoglobin 14.4 g/dL (14.0-18.0); Immature Granulocyte Absolute 0.01 K/mm3 (0.00-0.031); Immature Granulocyte Percent A 0.2 % (0-0.5); Immature Platelet Fraction Pct 6.3 % (0.9-11.2); Lymphocytes Absolute Auto 1.47 K/mm3 (0.9-3.2); Lymphocytes Percent Auto 28.7 % (18.3-44.2); Mean Corpuscular Hemoglobin 28.7 pg (26-34); Mean Corpuscular Volume 84.5 fl (80-100); Mean Platelet Volume 11.1 fl (7.4-10.4); Monocytes Absolute Auto 0.5 K/mm3 (0.1-0.6); Monocytes Percent Auto 9.4 % (2.6-8.5); Neutrophils Absolute Auto 3.1 K/mm3 (1.3-6.7); Neutrophils Percent Auto 59.4 % (45.5-73.1); Platelet Count Result 127 k/mm3 (150-375); Red Blood Count 5.02 M/mm3 (4.6-6.20); Red Cell Distribution Width 13.9 % (11.5-14.5); White Blood Count 5.1 K/mm3 (4.5-10.0)
--- NOTE | 2024-02-23 17:00 | ECG_ITS ---
SEE SCANNED COPY FOR CONFIRMED REPORT MTDD
[2024-02-23 17:01] LABS: Alanine Aminotransferase 26 U/L (6-50); Albumin Level 3.9 g/dL (3.5-5.1); Alkaline Phosphatase 104 U/L (38-126); Anion Gap 4 mmol/L (4-12); Aspartate Amino Transferase 37 U/L (17-59); Bilirubin,Total 1.3 mg/dL (0.2-1.3); Blood Urea Nitrogen 11 mg/dL (9-20); Calcium 8.6 mg/dL (8.4-10.2); Carbon Dioxide 33 mmol/L (22-30); Chloride 103 mmol/L (98-107); Estimated CRCL calculation 90 ml/min; Estimated Glomerular Filt Rate > 60; Glucose 120 mg/dL (65-110); Magnesium 1.9 mg/dL (1.6-2.3); Potassium 2.4 mmol/L (3.4-5.0); Sodium 140 mmol/L (137-145)
[2024-02-23] MEDS: POTASSIUM CHLORIDE INJ 40 MEQ in SODIUM CHLORIDE 0.9% IV 500 ML 130 MEQ IVPB (17:26)
[2024-02-23] MEDS: KETOROLAC 30 MG/ML VIAL (*BKC) IV PUSH (17:54)
--- NOTE | 2024-02-23 19:31 | PM.IMHP ---
H&P: HPI History of Present Illness Date/Time: 02/23/24 19:31 Chief Complaint: Nausea/vomiting Narrative: this is a 48-year-old male with past medical history significant for type diabetes mellitus, diet controlled. Patient presents to the emergency room today for a 2nd time due to nausea vomiting and left flank pain the day prior patient was found to have a kidney stone was sent home however returns today due to intractable nausea and vomiting unable to keep anything down, denies any fevers, chills, rigors. preliminary workup was significant for a potassium of 2.4 patient has been placed in observation for further evaluation management and treatment. EXAMINATION: CT abdomen pelvis w con DATE: 02/23/2024 17:25 INDICATION: Left flank pain TECHNIQUE: Computed tomography (CT) of the abdomen and pelvis was performed with 100 mL Omnipaque-350 intravenous contrast. Automated exposure control and iterative reconstruction technique were employed. The dose-length product was 403.65 mGy-cm. COMPARISON: 04/03/2009, report only. FINDINGS: Lower thorax: Mild symmetric gynecomastia. Liver: Normal.? Biliary/Gallbladder: Dilated gallbladder. Dependent hyperdensities, likely gallstones. No bile duct dilation. Pancreas: Moderate fatty atrophy. Spleen: Splenomegaly. Adrenals:No mass. Kidneys: Delayed left nephrogram. Bilateral nonobstructing calculi. Mild left perinephric stranding. Mild left pelviectasis and caliectasis. 5 mm calcification in the left UVJ. GI tract: Mild distal esophageal and gastric wall edema. Descending colon, sigmoid, and rectal wall edema. Uncomplicated sigmoid anastomosis. No small or large bowel dilation. Appendix not confidently identified. Mesentery/Peritoneum: Upper abdominal, periaortic and pelvic lymphadenopathy. Retroperitoneum: No mass. Pelvis: Pelvic organs are within normal limits. Soft Tissues: Mild body wall edema. Bilateral inguinal lymphadenopathy. Bones:? No acute osseous finding. IMPRESSION: Mild esophagitis/gastritis. Cholelithiasis. Gallbladder hydrops, may be secondary to fasting or obstruction, no inflammatory changes detected. Splenomegaly with abdominopelvic lymphadenopathy, correlate for history of lymphoproliferative disease. 5 mm left UVJ stone causing mild-moderate obstructive uropathy. Distal colitis/proctitis. EXAMINATION: XR chest 2V DATE: 02/22/2024 18:14 INDICATION: Dyspnea. TECHNIQUE: Frontal and lateral views of the chest were obtained. COMPARISON: None. FINDINGS: There is no pneumonia, pleural effusion, or pneumothorax. The heart size is normal. IMPRESSION: 1. No acute cardiopulmonary disease. Review of Systems Review of Systems: n/v [facility] Past Medical History Medical History T2DM (type 2 diabetes mellitus) Surgical History Surgical History History of colectomy Meds Home Medications and Allergies Home Medications Medication Instructions Recorded Confirmed Type cefuroxime axetil 500 mg tablet 500 mg PO Q12H #14 tabs 02/22/24 Rx potassium chloride 20 mEq oral 20 meq PO BID #30 ea 02/22/24 Rx packet Allergies Allergy/AdvReac Type Severity Reaction Status Date / Time Penicillins AdvReac Mild NAUSEA Verified 02/23/24 17:52 Vital Signs Vital Signs - 24 hr 02/23/24 16:36 02/23/24 16:42 02/23/24 16:38 Temperature 97.6 F Pulse Rate 73 72 Respiratory Rate 19 12 Blood Pressure 150/87 H 150/87 H Pulse Oximetry 100 100 Oxygen Delivery Room Air 02/23/24 17:01 02/23/24 18:08 02/23/24 18:31 Temperature Pulse Rate 72 69 71 Respiratory Rate 14 13 18 Blood Pressure 153/87 H 168/92 H 144/82 H Pulse Oximetry 100 100 100 Oxygen Delivery 02/23/24 19:01 Temperature Pulse Rate 83 Respiratory Rate 18 Blood Pressure 141/86 H Pulse Oximetry 100 Oxygen Delivery Exam Narrative: Lexi
--- NOTE | 2024-02-23 20:29 | ADMGEN ---
This patient, Santosh Heart, was admitted to Medical Room 341-01. Patient/family oriented to hospital policies and general routines including ID bracelet, bed and alarms, visiting hours, pain management, procedures, bathroom and other care routines, personal items, smoking policy, room service/diet, and visiting hours. Information on how to activate the Rapid Response Team has been discussed. Patient/Family are encouraged to report perceived risks to care and to ask questions if they do not understand what they are told or what they should do.
[2024-02-23] MEDS: PANTOPRAZOLE SODIUM IV 40 MG VIAL IV PUSH (22:52)
[2024-02-24] VITALS (9 sets, daily range): BP systolic 131–145; BP diastolic 66–77; PULSE 74–88; RESP 14–18; TEMP 36.3–36.7; O2SAT 99–100
[2024-02-24 00:41] LABS: Anion Gap 2 mmol/L (4-12); Blood Urea Nitrogen 9 mg/dL (9-20); Calcium 7.9 mg/dL (8.4-10.2); Carbon Dioxide 32 mmol/L (22-30); Chloride 106 mmol/L (98-107); Estimated CRCL calculation 90 ml/min; Estimated Glomerular Filt Rate > 60; Glucose 93 mg/dL (65-110); Potassium 2.6 mmol/L (3.4-5.0); Sodium 140 mmol/L (137-145)
[2024-02-24] MEDS: POTASSIUM CHLORIDE INJ 40 MEQ in SODIUM CHLORIDE 0.9% IV 500 ML 130 MEQ IVPB ×2 (02:07→09:08)
[2024-02-24] MEDS: MAGNESIUM SULF 2 GM/WATER 50ML 2 GM/50 ML BAG IVPB (02:08)
[2024-02-24 05:25] LABS: Basophils Percent Auto 0.5 % (0.2-1.2); Eosinophils Absolute Auto 0.1 K/mm3 (0-0.3); Eosinophils Percent Auto 2.3 % (0-4.4); Hematocrit 40.5 % (42.0-52.0); Hemoglobin 13.5 g/dL (14.0-18.0); Immature Granulocyte Absolute 0.01 K/mm3 (0.00-0.031); Immature Granulocyte Percent A 0.2 % (0-0.5); Lymphocytes Absolute Auto 1.23 K/mm3 (0.9-3.2); Lymphocytes Percent Auto 28.8 % (18.3-44.2); Mean Corpuscular HGB Conc 33.3 g/dl (32-36); Mean Corpuscular Hemoglobin 28.5 pg (26-34); Mean Corpuscular Volume 85.4 fl (80-100); Mean Platelet Volume 11.2 fl (7.4-10.4); Monocytes Absolute Auto 0.5 K/mm3 (0.1-0.6); Monocytes Percent Auto 10.5 % (2.6-8.5); Neutrophils Absolute Auto 2.5 K/mm3 (1.3-6.7); Neutrophils Percent Auto 57.7 % (45.5-73.1); Platelet Count Result 114 k/mm3 (150-375); Red Blood Count 4.74 M/mm3 (4.6-6.20); Red Cell Distribution Width 13.6 % (11.5-14.5); White Blood Count 4.3 K/mm3 (4.5-10.0)
[2024-02-24 05:48] LABS: Anion Gap 3 mmol/L (4-12); Blood Urea Nitrogen 7 mg/dL (9-20); Calcium 7.8 mg/dL (8.4-10.2); Carbon Dioxide 30 mmol/L (22-30); Chloride 105 mmol/L (98-107); Estimated CRCL calculation 100 ml/min; Estimated Glomerular Filt Rate > 60; Glucose 93 mg/dL (65-110); Potassium 2.6 mmol/L (3.4-5.0); Sodium 138 mmol/L (137-145)
[2024-02-24] MEDS: PANTOPRAZOLE SODIUM IV 40 MG VIAL IV PUSH ×2 (09:09→20:42)
--- NOTE | 2024-02-24 12:28 | P.PNIM_ITS ---
Progress Note: A&P Assessment and Plan (1) Acute abdominal pain in left flank: Code(s): R10.9 - Unspecified abdominal pain Status: Acute Assessment and Plan: CT abdomen and pelvis shows 5 mm left UVJ stone with [id number] obstructive uropathy, Splenomegaly with abdominal pelvic lymphadenopathy present, Cholelithiasis, Mild esophagitis and gastritis. Also showing distal colitis and proctitis. Patient has been nauseous, having abdominal pain and diarrhea. * Differentials include kidney stone versus colitis versus proctitis * Tylenol, Toradol, [place] for pain * He received 2 L of LR in the ED * Started on Rocephin * White count is 4.3 and he is afebrile * Urine culture from 02-21 was negative * Working up splenomegaly with lymphadenopathy with labs CBC with peripheral blood smear, reticulocyte count, LDH, CMP, and uric acid. (2) Acute hypokalemia: Code(s): E87.6 - Hypokalemia Status: Acute Assessment and Plan: Potassium 2.1 on admission. * On telemetry * Has received a total of 120 mEq of potassium IV and 2 g Mag. * Started on D5 half-normal saline with 40 of potassium continuously at 100 mL an hour * Mag 1.9 (3) Kidney stone on left side: Code(s): N20.0 - Calculus of kidney Status: Acute Assessment and Plan: 5 mm stone in the left UVJ * Urology consulted. Cysto was deferred at this time because of hypokalemia * Urinating without difficulty * UA with blood and white cells but no bacteria present * On Rocephin * Toradol, Tylenol, [place] for pain * Zofran for nausea (4) Nausea & vomiting: Qualifiers: Vomiting type: unspecified Qualified Code(s): R11.2 - Nausea with vom iting, unspecified Code(s): R11.2 - Nausea with vomiting, unspecified Status: Acute Assessment and Plan: No nausea or vomiting today * Initially was on a clear liquid diet. Has since advanced to regular. * Zofran for nausea * NPO at midnight for possible intervention by Urology (5) Pancytopenia: Code(s): D61.818 - Other pancytopenia Status: Acute Assessment and Plan: After IV hydration labs are concerning for pancytopenia * White count 4.3, hemoglobin 13.5, platelet count 114 * Splenomegaly and lymphadenopathy seen on CT. No history of lymphoproliferative disorder * Peripheral blood smear pending * Will plan to consult hematology Subjective Date/time seen: 02/24/24 12:28 Interval history: This is a 48-year-old male with past medical history of diabetes recently on Trulicity and metformin and diverticulitis with partial colectomy. He presented to the ED with complaints of left lower quadrant pain and left flank pain with associated nausea. Also reports diarrhea that has been going on since starting metformin and Trulicity in August of last year. He recently stopped his Trulicity and metformin approximately 1 month ago because of the diarrhea it was causing. His A1c initially was 9.2 and most recently was 6.6%. He still having loose stools but no longer diarrhea. He denies fever, chills, sore throat, runny nose, chest pain, shortness of breath, or difficulty with urination. In the ED his labs were significant for platelet count of [address] abdomen and pelvis showed mild esophagitis, gastritis with cholelithiasis. As well as splenomegaly with abdominal pelvic lymphadenopathy, 5 mm left UVJ stone causing mild to moderate obstructive uropathy, and distal colitis, proctitis. UA shows cloudy urine with 3+ blood, 1+ bili, leukocyte esterase trace, greater than 100 rbc's and 6-10 WBC. He was admitted in the setting for f
--- NOTE | 2024-02-24 12:28 | PM.IMPN ---
Progress Note: A&P Assessment and Plan (1) Acute abdominal pain in left flank: Code(s): R10.9 - Unspecified abdominal pain Status: Acute Assessment and Plan: CT abdomen and pelvis shows 5 mm left UVJ stone with [id number] obstructive uropathy, Splenomegaly with abdominal pelvic lymphadenopathy present, Cholelithiasis, Mild esophagitis and gastritis. Also showing distal colitis and proctitis. Patient has been nauseous, having abdominal pain and diarrhea. Differentials include kidney stone versus colitis versus proctitis Tylenol, Toradol, [place] for pain He received 2 L of LR in the ED Started on Rocephin White count is 4.3 and he is afebrile Urine culture from - was negative Working up splenomegaly with lymphadenopathy with labs CBC with peripheral blood smear, reticulocyte count, LDH, CMP, and uric acid. (2) Acute hypokalemia: Code(s): E87.6 - Hypokalemia Status: Acute Assessment and Plan: Potassium 2.1 on admission. On telemetry Has received a total of 120 mEq of potassium IV and 2 g Mag. Started on D5 half-normal saline with 40 of potassium continuously at 100 mL an hour Mag 1.9 (3) Kidney stone on left side: Code(s): N20.0 - Calculus of kidney Status: Acute Assessment and Plan: 5 mm stone in the left UVJ Urology consulted. Cysto was deferred at this time because of hypokalemia Urinating without difficulty UA with blood and white cells but no bacteria present On Rocephin Toradol, Tylenol, [place] for pain Zofran for nausea (4) Nausea & vomiting: Qualifiers: Vomiting type: unspecified Qualified Code(s): R11.2 - Nausea with vomiting, unspecified Code(s): R11.2 - Nausea with vomiting, unspecified Status: Acute Assessment and Plan: No nausea or vomiting today Initially was on a clear liquid diet. Has since advanced to regular. Zofran for nausea NPO at midnight for possible intervention by Urology (5) Pancytopenia: Code(s): D61.818 - Other pancytopenia Status: Acute Assessment and Plan: After IV hydration labs are concerning for pancytopenia White count 4.3, hemoglobin 13.5, platelet count 114 Splenomegaly and lymphadenopathy seen on CT. No history of lymphoproliferative disorder Peripheral blood smear pending Will plan to consult hematology Subjective Date/time seen: 02/24/24 12:28 Interval history: This is a 48-year-old male with past medical history of diabetes recently on Trulicity and metformin and diverticulitis with partial colectomy. He presented to the ED with complaints of left lower quadrant pain and left flank pain with associated nausea. Also reports diarrhea that has been going on since starting metformin and Trulicity in August of last year. He recently stopped his Trulicity and metformin approximately 1 month ago because of the diarrhea it was causing. His A1c initially was 9.2 and most recently was 6.6%. He still having loose stools but no longer diarrhea. He denies fever, chills, sore throat, runny nose, chest pain, shortness of breath, or difficulty with urination. In the ED his labs were significant for platelet count of [address] abdomen and pelvis showed mild esophagitis, gastritis with cholelithiasis. As well as splenomegaly with abdominal pelvic lymphadenopathy, 5 mm left UVJ stone causing mild to moderate obstructive uropathy, and distal colitis, proctitis. UA shows cloudy urine with 3+ blood, 1+ bili, leukocyte esterase trace, greater than 100 rbc's and 6-10 WBC. He was admitted in the setting for further workup of abdominal pain and urology consult. 02/23: Patient is doing well today. He does have tenderness to the left lower quadrant and left flank but has not needed pain medicine today. He was on clear liquid diet tolerating without difficulty. Will advance him to regular diet today. NPO at midnight should urology want to do a cystoscopy katherine
--- NOTE | 2024-02-24 13:07 | PCCCNOTE ---
On 02/24/24, the student, [ Kayli Guzmán], provided care and completed [facility] documentation on this patient. I have reviewed the student's documentation and agree with the findings.
[2024-02-24] MEDS: KETOROLAC 15 MG/ML VIAL (*BKC) IV PUSH ×2 (13:58→20:41)
[2024-02-24] MEDS: KCL 40 MEQ/D5 1/2NS 1,000 ML 100 ML IV CONT (15:31)
[2024-02-24 15:35] LABS: Anion Gap 4 mmol/L (4-12); Blood Urea Nitrogen 9 mg/dL (9-20); Carbon Dioxide 32 mmol/L (22-30); Chloride 105 mmol/L (98-107); Estimated CRCL calculation 82 ml/min; Estimated Glomerular Filt Rate > 60; Glucose 133 mg/dL (65-110); Potassium 3.4 mmol/L (3.4-5.0); Sodium 141 mmol/L (137-145)
[2024-02-24 15:59] LABS: Immature Reticulocyte Fraction 8.6 % (3.0-15.9); Reticulocyte Hemoglobin Conten 31.3 pg (28.2-36.6); Reticulocyte Percent 0.85 % (0.7-4.3); Reticulocytes Absolute 0.04 10^6/uL (0.02-0.10)
[2024-02-24 17:20] LABS: Lactate Dehydrogenase 241 U/L (120-246)
[2024-02-24 17:21] LABS: Uric Acid 5.7 mg/dL (3.5-8.5)
[2024-02-24] MEDS: TAMSULOSIN HCL 0.4 MG CAPSULE PO (17:31)
--- NOTE | 2024-02-24 18:50 | WPDURCON ---
Assessment and Plan Assessment and plan (1) Acute abdominal pain in left flank: Code(s): R10.9 - Unspecified abdominal pain Status: Acute (2) Kidney stone on left side: Code(s): N20.0 - Calculus of kidney Status: Acute Assessment and Plan: currently asymptomatic, continue to strain urine will obtain KUB reviewd options of trial of passage, ESWL and URS. given lack of pain and normal Cr/WBC no stent needed at this time. can consider outpt ESWL once potassium has stabilized Urology Consult Note HPI Date Seen: 02/24/24 Requesting Physician: Serenity Hannah MD Primary Care Provider: Jose Copeland, MATHEMATICS L[employer]ER Consult Narrative Narrative: Santosh Heart is a 48 year old male admitted for hypokalemia. he was having 3/10 left flank pain and found to have 4mm UPJ stone . Cr normal, ua non infected. Denies fever/chills. No prior hx of stones. No fam hx of stones pain currently 0/10. eating regular diet. No hx of UTI's has nt been on NSAIDS. Review of Systems Constitutional: Constitutional: Reports as per HPI and Reports no additional constitutional complaints Eyes: Eyes: Reports as per HPI and Reports no additional eye complaints ENT: Reports system reviewed and no additional complaints, except as documented, Reports as per HPI and Reports Normal hearing present Cardiovascular: Cardiovascular: Reports no additional cardiovascular complaints, Denies chest pain at rest and Denies diaphoresis Respiratory: Respiratory: Reports as per HPI, Reports no additional respiratory complaints and Denies excessive phlegm production Gastrointestinal: Gastrointestinal: Reports as per HPI and Reports no additional gastrointestinal complaints Genitourinary: Genitourinary: Reports no additional male genitourinary complaints and Reports as per HPI Musculoskeletal: Musculoskeletal: Reports no additional musculoskeletal complaints Integumentary/Breasts: Skin/Breast: Reports system reviewed and no additional complaints, except as docu Neurologic: Reports system reviewed and no additional complaints, except as documented Psychiatric: Psychiatric: Reports no additional psychiatric complaints Endocrine: Endocrine: Reports no additional endocrine complaints Hematologic/Lymphatic: Hematologic/Lymphatic: Reports no additional hematologic/lymphatic complaints Allergic/Immunologic: Allergic/Immunologic: Reports no additional allergic/immunologic complaints PMFSH Past Medical History Medical History T2DM (type 2 diabetes mellitus) Surgical History Surgical History History of colectomy Family History Family History (Updated 02/23/24 @ 22:26 by Cecilia Francis RN) Mother Diverticulosis COPD (chronic obstructive pulmonary disease) Father Myocardial infarction Sibling Healthy adult male Social History Social History Smoking status: Never smoker Alcohol intake: never Substance use: never Do You Feel Safe in your Home?: Yes Lack of Transportation: No Lack of Food: Never True Current Housing: I Have Housing Concerned About Future Housing: No Difficulty Paying Gas/Electric Bills: No Difficulty Paying for Meds: No Currently Unemployed: No Education: Bachelor's Degree Difficulty w/ Childcare or Family Care: No Spiritual care concerns: No Meds Home Medications and Allergies Home Medications Medication Instructions Recorded Confirmed Type cefuroxime axetil 500 mg tablet 500 mg PO Q12H #14 tabs 02/22/24 02/23/24 Rx potassium chloride 20 mEq oral 20 meq PO BID #30 ea 02/22/24 02/23/24 Rx packet ibuprofen 200 mg capsule 400 mg PO TID PRN Pain (Scale 02/23/24 02/23/24 History Score 4-6) Allergies Allergy/AdvReac Type Severity Reaction Status Date / Time Penicillins AdvReac Mil
[2024-02-24 20:28] LABS: Magnesium 2.1 mg/dL (1.6-2.3)
[2024-02-24 20:30] LABS: Iron 40 ug/dL (49-181)
[2024-02-24 20:39] LABS: Percent Iron Saturation 14 % (20-50)
[2024-02-24 21:13] LABS: Hepatitis B Surface Antigen Negative (Negative)
[2024-02-24 21:19] LABS: HAV RESULT Negative (Negative); Hepatitis B Core IgM Result Negative (Negative)
[2024-02-24 21:31] LABS: Hepatitis C Virus Antibody Negative (Negative)
[2024-02-25] VITALS (9 sets, daily range): BP systolic 136–155; BP diastolic 71–77; PULSE 72–80; RESP 16–18; TEMP 36.5–36.9; O2SAT 98–100
[2024-02-25] MEDS: KCL 40 MEQ/D5 1/2NS 1,000 ML 100 ML IV CONT (05:49)
[2024-02-25 06:07] LABS: Basophils Percent Auto 0.7 % (0.2-1.2); Eosinophils Absolute Auto 0.1 K/mm3 (0-0.3); Eosinophils Percent Auto 2.4 % (0-4.4); Hematocrit 39.7 % (42.0-52.0); Hemoglobin 12.8 g/dL (14.0-18.0); Immature Granulocyte Absolute 0.01 K/mm3 (0.00-0.031); Immature Granulocyte Percent A 0.2 % (0-0.5); Immature Platelet Fraction Pct 6.7 % (0.9-11.2); Lymphocytes Absolute Auto 1.55 K/mm3 (0.9-3.2); Lymphocytes Percent Auto 37.4 % (18.3-44.2); Mean Corpuscular HGB Conc 32.2 g/dl (32-36); Mean Corpuscular Hemoglobin 28.2 pg (26-34); Mean Corpuscular Volume 87.4 fl (80-100); Mean Platelet Volume 11.4 fl (7.4-10.4); Monocytes Absolute Auto 0.4 K/mm3 (0.1-0.6); Monocytes Percent Auto 10.6 % (2.6-8.5); Neutrophils Percent Auto 48.7 % (45.5-73.1); Platelet Count Result 107 k/mm3 (150-375); Red Blood Count 4.54 M/mm3 (4.6-6.20); Red Cell Distribution Width 13.8 % (11.5-14.5); White Blood Count 4.1 K/mm3 (4.5-10.0)
[2024-02-25 06:24] LABS: Alanine Aminotransferase 19 U/L (6-50); Albumin Level 3.1 g/dL (3.5-5.1); Alkaline Phosphatase 88 U/L (38-126); Anion Gap 2 mmol/L (4-12); Aspartate Amino Transferase 29 U/L (17-59); Bilirubin,Total 0.9 mg/dL (0.2-1.3); Blood Urea Nitrogen 9 mg/dL (9-20); Calcium 7.7 mg/dL (8.4-10.2); Carbon Dioxide 30 mmol/L (22-30); Chloride 105 mmol/L (98-107); Estimated CRCL calculation 82 ml/min; Estimated Glomerular Filt Rate > 60; Glucose 114 mg/dL (65-110); Magnesium 2.1 mg/dL (1.6-2.3); Sodium 137 mmol/L (137-145)
[2024-02-25] MEDS: PANTOPRAZOLE SODIUM IV 40 MG VIAL IV PUSH (08:25)
[2024-02-25] MEDS: KETOROLAC 15 MG/ML VIAL (*BKC) IV PUSH ×3 (08:27→20:13)
--- NOTE | 2024-02-25 08:50 | P.PNIM_ITS ---
Progress Note: A&P Assessment and Plan (1) Acute abdominal pain in left flank: Code(s): R10.9 - Unspecified abdominal pain Status: Acute Assessment and Plan: CT abdomen and pelvis shows 5 mm left UPJ stone with [id number] obstructive uropathy, Splenomegaly with abdominal pelvic lymphadenopathy present, Cholelithiasis, Mild esophagitis and gastritis. Also showing distal colitis and proctitis. Patient has been nauseous, having abdominal pain and diarrhea. * Differentials include kidney stone versus colitis/proctitis versus STI infection * Tylenol, Toradol, Republic for pain * He received 2 L of LR in the ED * Started on Rocephin * White count is 4.3 and he is afebrile * Urine culture from 02-21 was negative * Working up splenomegaly with lymphadenopathy with labs CBC with peripheral blood smear, reticulocyte count, LDH, CMP, HIV, and uric acid. * Consulted Hematology for pancytopenia, rec's appreciated * Working up colitis/proctitis with RPR, HSV, Gonorrhea, chlamydia, HIV, fecal calprotectin, r/o c-diff. * GI consulted for colitis/proctitis, rec's appreciated (2) Acute hypokalemia: Code(s): E87.6 - Hypokalemia Status: Acute Assessment and Plan: Potassium 2.1 on admission. * On telemetry * Has received a total of 120 mEq of potassium IV and 2 g Mag. * Started on D5 half-normal saline with 40 of potassium continuously at 100 mL an hour * Mag 1.9 02/24: * K+ 3.0 * Oral 40 meq now and repeat at noon * on tele (3) Proctitis: Code(s): K62.89 - Other specified diseases of anus and rectum Status: Acute Assessment and Plan: Colitis, proctitis seen on CT abd/pelvis and patient here with diarrhea with profound hypokalemia * Pain medications ordered * zofran for nausea * On Rocephin * stool studies ordered, including c-diff to rule out infectious etiology versus pancreatic insufficiency * Working up proctitis with RPR, HSV, Gonorrhea, chlamydia, HIV to r/o STD source * Fecal calprotectin pending to rule out IBD * GI consulted and recs appreciated 02/24: * GI recommending EGD and colonoscopy to be scheduled in 4 weeks * Also recommending Protonix 40 mg b.i.d. (4) Kidney stone on left side: Code(s): N20.0 - Calculus of kidney Status: Acute Assessment and Plan: 5 mm stone in the left UVJ * Urology consulted. Cysto was deferred at this time because of hypokalemia * Urinating without difficulty * UA with blood and white cells but no bacteria present * On Rocephin * Toradol, Tylenol, Republic for pain * Zofran for nausea * Flomax ordered 02/24: * Renal stone at [facility]. Urology would like to repeat KUB tomorrow as well as a renal ultrasound. * Urine culture negative (5) Nausea & vomiting: Qualifiers: Vomiting type: unspecified Qualified Code(s): R11.2 - Nausea with vomiting, unspecified Code(s): R11.2 - Nausea with vomiting, unspecified Status: Acute Assessment and Plan: No nausea or vomiting today * Initially was on a clear liquid diet. Has since advanced to regular. * Zofran for nausea 02/24 * Regular diet * Nausea vomiting resolved (6) Pancytopenia: Code(s): D61.818 - Other pancytopenia Status: Acute Assessment and Plan: After IV hydration labs are concerning for pancytopenia * White count 4.3, hemoglobin 13.5, platelet count 114 * Splenomegaly and lymphadenopathy seen on CT. No history of lymphoproliferative disorder * Peripheral blood smear pending * Will plan to
--- NOTE | 2024-02-25 08:50 | PM.IMPN ---
Progress Note: A&P Assessment and Plan (1) Acute abdominal pain in left flank: Code(s): R10.9 - Unspecified abdominal pain Status: Acute Assessment and Plan: CT abdomen and pelvis shows 5 mm left UPJ stone with [id number] obstructive uropathy, Splenomegaly with abdominal pelvic lymphadenopathy present, Cholelithiasis, Mild esophagitis and gastritis. Also showing distal colitis and proctitis. Patient has been nauseous, having abdominal pain and diarrhea. Differentials include kidney stone versus colitis/proctitis versus STI infection Tylenol, Toradol, Brookesmith for pain He received 2 L of LR in the ED Started on Rocephin White count is 4.3 and he is afebrile Urine culture from 02-21 was negative Working up splenomegaly with lymphadenopathy with labs CBC with peripheral blood smear, reticulocyte count, LDH, CMP, HIV, and uric acid. Consulted Hematology for pancytopenia, rec's appreciated Working up colitis/proctitis with RPR, HSV, Gonorrhea, chlamydia, HIV, fecal calprotectin, r/o c-diff. GI consulted for colitis/proctitis, rec's appreciated (2) Acute hypokalemia: Code(s): E87.6 - Hypokalemia Status: Acute Assessment and Plan: Potassium 2.1 on admission. On telemetry Has received a total of 120 mEq of potassium IV and 2 g Mag. Started on D5 half-normal saline with 40 of potassium continuously at 100 mL an hour Mag 1.9 02/24: K+ 3.0 Oral 40 meq now and repeat at noon on tele (3) Proctitis: Code(s): K62.89 - Other specified diseases of anus and rectum Status: Acute Assessment and Plan: Colitis, proctitis seen on CT abd/pelvis and patient here with diarrhea with profound hypokalemia Pain medications ordered zofran for nausea On Rocephin stool studies ordered, including c-diff to rule out infectious etiology versus pancreatic insufficiency Working up proctitis with RPR, HSV, Gonorrhea, chlamydia, HIV to r/o STD source Fecal calprotectin pending to rule out IBD GI consulted and recs appreciated 02/24: GI recommending EGD and colonoscopy to be scheduled in 4 weeks Also recommending Protonix 40 mg b.i.d. (4) Kidney stone on left side: Code(s): N20.0 - Calculus of kidney Status: Acute Assessment and Plan: 5 mm stone in the left UVJ Urology consulted. Cysto was deferred at this time because of hypokalemia Urinating without difficulty UA with blood and white cells but no bacteria present On Rocephin Toradol, Tylenol, Brookesmith for pain Zofran for nausea Flomax ordered 02/24: Renal stone at [facility]. Urology would like to repeat KUB tomorrow as well as a renal ultrasound. Urine culture negative (5) Nausea & vomiting: Qualifiers: Vomiting type: unspecified Qualified Code(s): R11.2 - Nausea with vomiting, unspecified Code(s): R11.2 - Nausea with vomiting, unspecified Status: Acute Assessment and Plan: No nausea or vomiting today Initially was on a clear liquid diet. Has since advanced to regular. Zofran for nausea 02/24 Regular diet Nausea vomiting resolved (6) Pancytopenia: Code(s): D61.818 - Other pancytopenia Status: Acute Assessment and Plan: After IV hydration labs are concerning for pancytopenia White count 4.3, hemoglobin 13.5, platelet count 114 Splenomegaly and lymphadenopathy seen on CT. No history of lymphoproliferative disorder Peripheral blood smear pending Will plan to consult hematology 02/24: Hematology saw the patient today and are recommending CT chest to look for further lymphadenopathy. CT chest with no lymph node findings Iron deficient anemia with borderline low B12 Patient will receive Venofer an oral iron 65 mg b.i.d. as well as B12 1000 mg daily Flow cytometry ordered for lymphoma Heme/Onc to proceed with biopsy if flow cytometry negative. Plan Waiting for flow cytometry studies. Patient may need biopsy. Urol
[2024-02-25 09:25] LABS: CRP 1.3 mg/dL (<1.0)
--- NOTE | 2024-02-25 09:33 | P.CONGI_ITS ---
I, Octavio Ray MD, have provided a substantive portion of the care of this patient and discussed the patient with my Nurse Practitioner. I have reviewed any new relevant radiographic and laboratory results including medications. I agree with her documentation as noted below.?I personally performed the medical decision making and much of the history and exam for this encounter. briefly h/o DM with loose stool since using metformin and trulicity but discontinued since then. Had remote partial colectomy due to diverticulitis. Here with left flank pain and nausea, CT scan showed proctitis, diarrhea improved, also possible esophagitis by CT scan. He does not remember having scopes. Continue medical care, antibiotics, ppi. Plan for egd and colonoscopy in 4 weeks. Also noted pancytopenia, oncology on board Assessment and Plan Assessment and plan (1) Abnormal digestive system diagnostic imaging: Code(s): R93.3 - Abnormal findings on diagnostic imaging of other parts of digestive tract Status: Acute (2) Esophagitis: Code(s): K20.90 - Esophagitis, unspecified without bleeding Status: Acute (3) Gastritis: Qualifiers: Gastritis type: other gastritis Chronicity: unspecified Gastritis bleeding: presence of bleeding unspecified Qualified Code(s): K29.60 - Other gastritis without bleeding Code(s): K29.70 - Gastritis, unspecified, without bleeding Status: Acute (4) Pancolitis: Code(s): K51.00 - Ulcerative (chronic) pancolitis without complications Status: Acute (5) Chronic diarrhea: Code(s): K52.9 - Noninfective gastroenteritis and colitis, unspecified Status: Acute (6) Nausea & vomiting: Qualifiers: Vomiting type: unspecified Qualified Code(s): R11.2 - Nausea with vomiting, unspecified Code(s): R11.2 - Nausea with vomiting, unspecified Status: Acute Plan 1) Abnormal imaging digestive / pancolitis/chronic diarrhea: Patient has never had a colonoscopy. History of partial colon resection (8 ) approximately 14 years ago secondary to diverticulitis complications. CT on admission showed distal colitis/proctitis. Patient admits to chronic diarrhea which he thought was secondary to his metformin and Trulicity. patient self discontinued these medications August/ September and his diarrhea improved but did not resolve. He is still having frequent loose stools with occasional fecal urgency. Last BM was Sunday and he states was small and liquid. He denies any hematochezia Or other alarm symptoms. * Continue antibiotics * Stool studies ordered to evaluate for infectious etiology versus pancreatic insufficiency versus IBD * Lipase ordered * Patient will need to follow up as outpatient at which time we can discuss scheduling a colonoscopy 2) Esophagitis/gastritis /nausea/vomiting: CT showed mild esophagitis and gastritis along with gallstones. LFTs normal. Patient denies prior history of reflux. Patient denies frequent NSAID or aspirin use. Per patient nausea and vomiting have resolved since admission. * Continue Protonix 40 mg BID, ok to change to PO and patient will need to be discharged on this regimen * Continue supportive care with pain management and antiemetics * No indication for urgent endoscopic evaluation * Will arrange EGD at outpatient follow up 3) Iron deficiency anemia / thrombocytopenia: H/H normal on admission but today showed Hgb 13 and Hct 40, MCV 87, platelets 107. Total iron 40, TIBC 285, iron saturation 14%, B12 folate normal. No signs of active GI bleeding to include hematemesis, hematochezia, or melena. * Primary care
--- NOTE | 2024-02-25 09:33 | WPDGICN ---
Assessment and Plan Assessment and plan (1) Abnormal digestive system diagnostic imaging: Code(s): R93.3 - Abnormal findings on diagnostic imaging of other parts of digestive tract Status: Acute (2) Esophagitis: Code(s): K20.90 - Esophagitis, unspecified without bleeding Status: Acute (3) Gastritis: Qualifiers: Gastritis type: other gastritis Chronicity: unspecified Gastritis bleeding: presence of bleeding unspecified Qualified Code(s): K29.60 - Other gastritis without bleeding Code(s): K29.70 - Gastritis, unspecified, without bleeding Status: Acute (4) Pancolitis: Code(s): K51.00 - Ulcerative (chronic) pancolitis without complications Status: Acute (5) Chronic diarrhea: Code(s): K52.9 - Noninfective gastroenteritis and colitis, unspecified Status: Acute (6) Nausea & vomiting: Qualifiers: Vomiting type: unspecified Qualified Code(s): R11.2 - Nausea with vomiting, unspecified Code(s): R11.2 - Nausea with vomiting, unspecified Status: Acute Plan 1) Abnormal imaging digestive / pancolitis/chronic diarrhea: Patient has never had a colonoscopy. History of partial colon resection (8 ) approximately 14 years ago secondary to diverticulitis complications. CT on admission showed distal colitis/proctitis. Patient admits to chronic diarrhea which he thought was secondary to his metformin and Trulicity. patient self discontinued these medications August/ September and his diarrhea improved but did not resolve. He is still having frequent loose stools with occasional fecal urgency. Last BM was Sunday and he states was small and liquid. He denies any hematochezia Or other alarm symptoms. Continue antibiotics Stool studies ordered to evaluate for infectious etiology versus pancreatic insufficiency versus IBD Lipase ordered Patient will need to follow up as outpatient at which time we can discuss scheduling a colonoscopy 2) Esophagitis/gastritis /nausea/vomiting: CT showed mild esophagitis and gastritis along with gallstones. LFTs normal. Patient denies prior history of reflux. Patient denies frequent NSAID or aspirin use. Per patient nausea and vomiting have resolved since admission. Continue Protonix 40 mg BID, ok to change to PO and patient will need to be discharged on this regimen Continue supportive care with pain management and antiemetics No indication for urgent endoscopic evaluation Will arrange EGD at outpatient follow up 3) Iron deficiency anemia / thrombocytopenia: H/H normal on admission but today showed Hgb 13 and Hct 40, MCV 87, platelets 107. Total iron 40, TIBC 285, iron saturation 14%, B12 folate normal. No signs of active GI bleeding to include hematemesis, hematochezia, or melena. Primary care team to continue monitoring H&H Hematology already consulted GI workup as outpatient GI Consult Note Consult date/time: 02/25/24 09:33 Reason for consult: Pancolitis HPI: Santosh Heart is a 48 year old male with past medical surgical Hx of partial bowel resection 2/2 diverticulitis complications 14 years ago, tonsillectomy and diabetes. Patient was seen in the ER on the and was diagnosed with a kidney stone. He then presented back and was admitted 02/23/2024 with complaints of left flank pain. GI was consulted to proctitis. Patient states that he has a history of chronic diarrhea and self discontinued his metformin and Trulicity in August/September and states that his diarrhea improved but not resolved. He is still having multiple loose stools daily that are occasionally urgent. Prior to stopping his diabetes medication he was having occasional fecal incontinence. Last BM was Sunday which he states was a small liquid stool. Previous complaints of nausea and vomiting have resolved since admission. He denies abdominal pain, bloating, odynophagia, dysphagia, reflux, regurgitation, early satiety, u
--- NOTE | 2024-02-25 09:48 | PDONCCN ---
HPI - Date of Consult Date/Time: 02/25/24 12:48 <Romero Mcgraw - 02/25/24 12:50> 02/25/24 09:48 <Elena Drake 02/25/24 09:50> Requesting Physician: Serenity Hannah MD <Romero Mcgraw - 02/25/24 12:50> Serenity Hannah MD <VidalElena 02/25/24 09:50> Primary Care Provider: Jose Copeland, SOFTWARE EDUCATOR <Romero Mcgraw - 02/25/24 12:50> Jose Copeland, SOFTWARE EDUCATOR <VidalElena 02/25/24 09:50> - Consult Narrative Reason for consult: Pancytopenia <Elena Drake 02/25/24 09:50> Narrative: Santosh Heart is a 48 year old male <Romero Mcgraw 02/25/24 12:50> Santosh Heart is a 48 year old male with a past medical history of DM . He was admitted for intractable n/v/d with shortness of breath and dizziness. He also complained of flank pain and was found to have a kidney stone. He denies any past history of iron deficiency or anemia. He does not smoke. Rare etoh use. Eats red meat. No history of stomach surgeries. Has not donated blood. He no past history of malignancy. Denies any blood in his stool or urine. CT abd/pelvis shows mild esophagitis/gastritis, cholelithiasis, gallbladder hydrops, splenomegaly with abdominopelvic lymphadenopathy, correlate for history of lymphoproliferative disease, 5 mm left UVJ stone causing mild-moderate obstructive uropathy, and distal colitis/proctitis. Labs are notable for WBC 4.1, Hgb 12.8, Hct 39, Plt 107, Iron 40 % sat 14. <Elena Drake 02/25/24 09:53> Review of Systems - Review of Systems All systems reviewed & are unremarkable except as noted in HPI and bel <VidalElena 02/25/24 09:53> - Neurologic Reports system reviewed and no additional complaints, except as documented, Reports hearing normal <Elena Drake - 02/25/24 09:50> [facility] Medical History: Medical History (Last Reviewed 02/23/24 @ 16:44 by Humberto Henry MD) T2DM (type 2 diabetes mellitus) <Romero Mcgraw - 02/25/24 12:50> Medical History (Last Reviewed 02/23/24 @ 16:44 by Humberto Henry MD) T2DM (type 2 diabetes mellitus) <Elena Drake - 02/25/24 09:50> Surgical History: Surgical History (Last Reviewed 02/23/24 @ 16:44 by Humberto Henry MD) History of colectomy <Romero Mcgraw - 02/25/24 12:50> Surgical History (Last Reviewed 02/23/24 @ 16:44 by Humberto Henry MD) History of colectomy <VidalElena 02/25/24 09:50> Family History: Family History (Last Updated 02/23/24 @ 22:26 by Cecilia Francis RN) Mother Diverticulosis COPD (chronic obstructive pulmonary disease) Father Myocardial infarction Sibling Healthy adult male <Romero Mcgraw - 02/25/24 12:50> Family History (Last Updated 02/23/24 @ 22:26 by Cecilia Francis RN) Mother Diverticulosis COPD (chronic obstructive pulmonary disease) Father Myocardial infarction Sibling Healthy adult male <Elena Drake - 02/25/24 09:50> - Social History Social History: Social History (Last Reviewed 02/23/24 @ 16:44 by Humberto Henry MD) Alcohol Use: Alcohol intake: never Substance Use: Substance use: never Others: Spiritual care concerns: No Smoking Status: Smoking status: Never smoker Social Determinants of Health: Do You Feel Safe in your Home?: Yes Has the Lack of Transportation Kept You From Medical Appointments or From Getting Medications?: No Within the Past 12 Months, Were You Worried Whether Your Food Would Run Out Before You Got Money to Buy More?: Never True What is Your Housing Situation Today?: I Have Housing Are You Worried That in the Next 2 Months, You May Not Have Your Own Housing to Live In?: No Do You Have Trouble Paying Your Heating Or Electricity Bill?: No Do You Have Trouble Paying For Medicines?: No Are You Currently Unemployed and Loo
[2024-02-25] MEDS: FERROUS SULFATE 325 MG TABLET DR PO ×2 (09:49→16:28)
[2024-02-25] MEDS: CYANOCOBALAMIN 1,000 MCG TABLET 1000 MCG PO (09:49)
[2024-02-25] MEDS: POTASSIUM CHLORIDE 20 MEQ ER TABLET 40 MEQ PO ×2 (09:49→13:36)
[2024-02-25 10:03] LABS: Prostate Specific Antigen 0.1 ng/mL (< OR = 4.0)
[2024-02-25 10:40] LABS: Lipase 108 U/L (23-300)
[2024-02-25] MEDS: IRON SUCROSE COMPLEX 500 MG in SODIUM CHLORIDE 0.9% IV 250 ML 79 MG IVPB (12:00)
[2024-02-25 13:55] LABS: CRP 1.3 mg/dL (<1.0)
[2024-02-25 13:58] LABS: Erythrocyte Sedimentation Rate 18 mm/hr (0-20)
[2024-02-25 14:08] LABS: Chlamydia trachomatis NOT DETECTED (NOT DETECTE); Neisseria gonorrhoeae PCR NOT DETECTED (NOT DETECTE)
--- NOTE | 2024-02-25 14:26 | WPDUROPN2 ---
Progress Note: A&P Assessment and Plan (1) Kidney stone on left side: Code(s): N20.0 - Calculus of kidney Status: Acute Assessment and Plan: Strain urine (2) Calculus of proximal ureter: Code(s): N20.1 - Calculus of ureter Status: Acute Assessment and Plan: Strain urine Will repeat a renal ultrasound and KUB tomorrow to see if there is hydronephrosis or evidence of stone Subjective Subjective Date/Time Seen: 02/25/24 14:26 Interval history: He has had no stone pain since admission. He has not seen a stone pass. He is not sure if his urine is being strained. Has concomitant medical issues he is being treated for Exam Narrative: No acute distress Normal breathing Alert orient x3 Objective Data Vital Signs Vital Signs: Vital Signs - 24 hr 02/24/24 14:40 02/24/24 16:00 02/24/24 20:00 Temperature 98.0 F Pulse Rate 81 84 84 Respiratory Rate 14 14 Blood Pressure 131/74 Pulse Oximetry 100 100 Oxygen Delivery Room Air 02/24/24 22:32 02/24/24 20:00 02/25/24 00:00 Temperature 97.7 F Pulse Rate 79 84 80 Respiratory Rate 18 Blood Pressure 134/66 Pulse Oximetry 100 Oxygen Delivery 02/25/24 04:00 02/25/24 06:49 02/25/24 08:00 Temperature 98.1 F Pulse Rate 75 78 Respiratory Rate 18 Blood Pressure 140/74 Pulse Oximetry 99 99 Oxygen Delivery Room Air 02/25/24 08:00 02/25/24 12:00 Temperature Pulse Rate 75 77 Respiratory Rate Blood Pressure Pulse Oximetry Oxygen Delivery Intake/Output Intake/Output: Intake & Output 02/22/24 02/23/24 02/24/24 02/25/24 23:59 23:59 23:59 23:59 Intake Total 2049 1720 1200 Output Total 200 Balance 2049 1720 1000 Meds/Results Medications: Active Medications Generic Name Dose Route Start Last Admin Trade Name Freq PRN Reason Stop Dose Admin Acetaminophen 325 mg 02/24/24 11:28 Acetaminophen 325 Mg Tablet PO Q4H PRN Mild Pain (1-3) or Fever Hydrocodone Bitart/Acetaminophen 1 tab 02/24/24 11:28 Hydrocodone/Acetaminophen (*Crx) 5-325 Mg Tablet PO Q4H PRN Pain Rated 7-10 Cyanocobalamin 1,000 mcg 02/25/24 09:00 02/25/24 09:49 Cyanocobalamin 1,000 Mcg Tablet PO 1,000 mcg QAM HELEN Administration Ferrous Sulfate 325 mg 02/25/24 09:00 02/25/24 09:49 Ferrous Sulfate [address] PO 325 mg BID HELEN Administration Ceftriaxone Sodium 1 gm in 50 mls @ 100 mls/hr 02/23/24 23:00 02/24/24 23:35 Rocephin 1 Gm/Ns 50 Ml IVPB Infused Q24H HELEN Infusion Ketorolac Tromethamine 15 mg 02/24/24 11:28 02/25/24 08:27 Ketorolac 15 Mg/Ml Vial (*Bkc) IV PUSH 15 mg Q6H PRN Administration Pain Rated 4-6 Ondansetron HCl 4 mg 02/23/24 20:38 Ondansetron Inj 4 Mg/2 Ml Vial IV PUSH Q6H PRN Nausea And Vomiting Pantoprazole Sodium 40 mg 02/23/24 21:00 02/25/24 08:25 Pantoprazole Sodium Iv 40 Mg Vial IV PUSH 40 mg Q12HR HELEN Administration Radiology Results: ITS Impressions Abdomen/Pelvis CT 02/23/24 17:36 IMPRESSION: Mild esophagitis/gastritis. Cholelithiasis. Gallbladder hydrops, may be secondary to fasting or obstruction, no inflammatory changes detected. Splenomegaly with abdominopelvic lymphadenopathy, correlate for history of lymphoproliferative disease. 5 mm left UVJ stone causing mild-moderate obstructive uropathy. Distal colitis/proctitis. Abdomen X-Ray 02/24/24 19:34 IMPRESSION: 1. No visible urolithiasis. Chest CT 02/25/24 09:36 IMPRESSION: 1. No chest lymphadenopathy. Labs Labs: Laboratory Results - last 24 hr 02/24/24 02/24/24 02/24/24 04:58 15:03 15:06 WBC RBC Hgb Hct MCV MCH MCHC RDW Plt Count MPV Immature Gran % (Auto) Neut % (Auto) Lymph % (Auto) [place] % (Auto) Eos % (Auto) Baso % (Auto) Lymph # (Auto) [place] # (Auto) Eos # (Auto) Baso # (Auto)
[2024-02-25 15:02] LABS: HIV 1/2 Ab P24 Ag 78.9
[2024-02-25 16:04] LABS: Rapid Plasma Reagin Non-Reactive (NonReactive)
[2024-02-25 16:09] LABS: HIVc Retest 1 80.1; HIVc Retest 2 78.5
[2024-02-25 16:12] LABS: HIV 1/2 Ab P24 Ag Result Reactive (Negative)
--- NOTE | 2024-02-25 16:42 | PC.NURSE ---
Janny Vee [employer] notified of HIV reactive
[2024-02-25] MEDS: PANTOPRAZOLE 40 MG TABLET PO (20:14)
[2024-02-25] MEDS: TAMSULOSIN HCL 0.4 MG CAPSULE PO (20:14)
[2024-02-26] VITALS (15 sets, daily range): BP systolic 105–159; BP diastolic 74–96; PULSE 76–90; RESP 12–19; TEMP 36.2–36.7; O2SAT 98–100
[2024-02-26] MEDS: ONDANSETRON INJ 4 MG/2 ML VIAL IV PUSH (00:55)
[2024-02-26 05:47] LABS: Basophils Percent Auto 0.3 % (0.2-1.2); Eosinophils Absolute Auto 0.1 K/mm3 (0-0.3); Eosinophils Percent Auto 1.3 % (0-4.4); Hematocrit 40.1 % (42.0-52.0); Hemoglobin 13.4 g/dL (14.0-18.0); Immature Granulocyte Absolute 0.02 K/mm3 (0.00-0.031); Immature Granulocyte Percent A 0.5 % (0-0.5); Immature Platelet Fraction Pct 5.4 % (0.9-11.2); Lymphocytes Absolute Auto 1.38 K/mm3 (0.9-3.2); Mean Corpuscular HGB Conc 33.4 g/dl (32-36); Mean Corpuscular Hemoglobin 28.8 pg (26-34); Mean Corpuscular Volume 86.2 fl (80-100); Mean Platelet Volume 11.4 fl (7.4-10.4); Monocytes Absolute Auto 0.4 K/mm3 (0.1-0.6); Monocytes Percent Auto 10.2 % (2.6-8.5); Neutrophils Absolute Auto 2.1 K/mm3 (1.3-6.7); Neutrophils Percent Auto 52.7 % (45.5-73.1); Platelet Count Result 105 k/mm3 (150-375); Red Blood Count 4.65 M/mm3 (4.6-6.20); Red Cell Distribution Width 13.5 % (11.5-14.5); White Blood Count 3.9 K/mm3 (4.5-10.0)
[2024-02-26 05:56] LABS: Alanine Aminotransferase 21 U/L (6-50); Albumin Level 3.2 g/dL (3.5-5.1); Alkaline Phosphatase 102 U/L (38-126); Anion Gap 3 mmol/L (4-12); Aspartate Amino Transferase 34 U/L (17-59); Bilirubin,Total 0.9 mg/dL (0.2-1.3); Blood Urea Nitrogen 7 mg/dL (9-20); Calcium 7.6 mg/dL (8.4-10.2); Carbon Dioxide 30 mmol/L (22-30); Chloride 103 mmol/L (98-107); Estimated CRCL calculation 90 ml/min; Estimated Glomerular Filt Rate > 60; Glucose 97 mg/dL (65-110); Magnesium 1.9 mg/dL (1.6-2.3); Potassium 3.3 mmol/L (3.4-5.0); Sodium 136 mmol/L (137-145)
[2024-02-26] MEDS: KETOROLAC 15 MG/ML VIAL (*BKC) IV PUSH ×2 (06:45→14:36)
--- NOTE | 2024-02-26 09:07 | P.PNIM_ITS ---
Progress Note: A&P Assessment and Plan (1) Acute abdominal pain in left flank: Code(s): R10.9 - Unspecified abdominal pain Status: Acute Assessment and Plan: CT abdomen and pelvis shows 5 mm left UPJ stone with [id number] obstructive uropathy, Splenomegaly with abdominal pelvic lymphadenopathy present, Cholelithiasis, Mild esophagitis and gastritis. Also showing distal colitis and proctitis. Patient has been nauseous, having abdominal pain and diarrhea. * Differentials include kidney stone versus colitis/proctitis versus STI infection * Tylenol, Toradol, [place] for pain * He received 2 L of LR in the ED * Started on Rocephin * White count is 4.3 and he is afebrile * Urine culture from 02-21 was negative * Working up splenomegaly with lymphadenopathy with labs CBC with peripheral blood smear, reticulocyte count, LDH, CMP, HIV, and uric acid. * Consulted Hematology for pancytopenia, rec's appreciated * Working up colitis/proctitis with RPR, HSV, Gonorrhea, chlamydia, HIV, fecal calprotectin, r/o c-diff. * GI consulted for colitis/proctitis, rec's appreciated (2) Acute hypokalemia: Code(s): E87.6 - Hypokalemia Status: Acute Assessment and Plan: Potassium 2.1 on admission. * On telemetry * Has received a total of 120 mEq of potassium IV and 2 g Mag. * Started on D5 half-normal saline with 40 of potassium continuously at 100 mL an hour * Mag 1.9 02/24: * K+ 3.0 * Oral 40 meq now and repeat at noon * on tele 02/25: * K+ 3.3 * Daily oral potassium 40 meq (3) Proctitis: Code(s): K62.89 - Other specified diseases of anus and rectum Status: Acute Assessment and Plan: Colitis, proctitis seen on CT abd/pelvis and patient here with diarrhea with profound hypokalemia * Pain medications ordered * zofran for nausea * On Rocephin * stool studies ordered, including c-diff to rule out infectious etiology versus pancreatic insufficiency * Working up proctitis with RPR, HSV, Gonorrhea, chlamydia, HIV to r/o STD source * Fecal calprotectin pending to rule out IBD * GI consulted and recs appreciated 02/24: * GI recommending EGD and colonoscopy to be scheduled in 4 weeks * Also recommending Protonix 40 mg b.i.d. 02/25: * No further GI symptoms * Protonix BID * Can D/C from GI perspective (4) Kidney stone on left side: Code(s): N20.0 - Calculus of kidney Status: Acute Assessment and Plan: 5 mm stone in the left UVJ * Urology consulted. Cysto was deferred at this time because of hypokalemia * Urinating without difficulty * UA with blood and white cells but no bacteria present * On Rocephin * Toradol, Tylenol, [place] for pain * Zofran for nausea * Flomax ordered 02/24: * Renal stone at UPJ. Urology would like to repeat KUB tomorrow as well as a renal ultrasound. * Urine culture negative * strain urine 02/25 * CT abdomen and pelvis to confirm stone * Likely intervention with urology if stone present * NPO now * S/p cysto with laser and stent placement * having some discomfort from the stent * Needs to follow up with urology in 1 week for stent removal (5) Nausea & vomiting: Qualifiers: Vomiting type: unspecified Qualified Code(s): R11.2 - Nausea with vomiting, unspecified Code(s): R11.2 - Nausea with vomiting, unspecified Status: Acute Assessment and Plan: No nausea or vomiting today * Initially was on a clear liquid diet. Has since advanced to regular. * Zofran for n
--- NOTE | 2024-02-26 09:07 | PM.IMPN ---
Progress Note: A&P Assessment and Plan (1) Acute abdominal pain in left flank: Code(s): R10.9 - Unspecified abdominal pain Status: Acute Assessment and Plan: CT abdomen and pelvis shows 5 mm left UPJ stone with [id number] obstructive uropathy, Splenomegaly with abdominal pelvic lymphadenopathy present, Cholelithiasis, Mild esophagitis and gastritis. Also showing distal colitis and proctitis. Patient has been nauseous, having abdominal pain and diarrhea. Differentials include kidney stone versus colitis/proctitis versus STI infection Tylenol, Toradol, [place] for pain He received 2 L of LR in the ED Started on Rocephin White count is 4.3 and he is afebrile Urine culture from 02-21 was negative Working up splenomegaly with lymphadenopathy with labs CBC with peripheral blood smear, reticulocyte count, LDH, CMP, HIV, and uric acid. Consulted Hematology for pancytopenia, rec's appreciated Working up colitis/proctitis with RPR, HSV, Gonorrhea, chlamydia, HIV, fecal calprotectin, r/o c-diff. GI consulted for colitis/proctitis, rec's appreciated (2) Acute hypokalemia: Code(s): E87.6 - Hypokalemia Status: Acute Assessment and Plan: Potassium 2.1 on admission. On telemetry Has received a total of 120 mEq of potassium IV and 2 g Mag. Started on D5 half-normal saline with 40 of potassium continuously at 100 mL an hour Mag 1.9 02/24: K+ 3.0 Oral 40 meq now and repeat at noon on tele 02/25: K+ 3.3 Daily oral potassium 40 meq (3) Proctitis: Code(s): K62.89 - Other specified diseases of anus and rectum Status: Acute Assessment and Plan: Colitis, proctitis seen on CT abd/pelvis and patient here with diarrhea with profound hypokalemia Pain medications ordered zofran for nausea On Rocephin stool studies ordered, including c-diff to rule out infectious etiology versus pancreatic insufficiency Working up proctitis with RPR, HSV, Gonorrhea, chlamydia, HIV to r/o STD source Fecal calprotectin pending to rule out IBD GI consulted and recs appreciated 02/24: GI recommending EGD and colonoscopy to be scheduled in 4 weeks Also recommending Protonix 40 mg b.i.d. 02/25: No further GI symptoms Protonix BID Can D/C from GI perspective (4) Kidney stone on left side: Code(s): N20.0 - Calculus of kidney Status: Acute Assessment and Plan: 5 mm stone in the left UVJ Urology consulted. Cysto was deferred at this time because of hypokalemia Urinating without difficulty UA with blood and white cells but no bacteria present On Rocephin Toradol, Tylenol, [place] for pain Zofran for nausea Flomax ordered 02/24: Renal stone at UPJ. Urology would like to repeat KUB tomorrow as well as a renal ultrasound. Urine culture negative strain urine 02/25 CT abdomen and pelvis to confirm stone Likely intervention with urology if stone present NPO now S/p cysto with laser and stent placement having some discomfort from the stent Needs to follow up with urology in 1 week for stent removal (5) Nausea & vomiting: Qualifiers: Vomiting type: unspecified Qualified Code(s): R11.2 - Nausea with vomiting, unspecified Code(s): R11.2 - Nausea with vomiting, unspecified Status: Acute Assessment and Plan: No nausea or vomiting today Initially was on a clear liquid diet. Has since advanced to regular. Zofran for nausea 02/24 Regular diet Nausea vomiting resolved RESOLVED (6) Pancytopenia: Code(s): D61.818 - Other pancytopenia Status: Acute Assessment and Plan: After IV hydration labs are concerning for pancytopenia White count 4.3, hemoglobin 13.5, platelet count 114 Splenomegaly and lymphadenopathy seen on CT. No history of lymphoproliferative disorder Peripheral blood smear pending Will plan to consult hematology 02/24: Hematology saw the patient today
--- NOTE | 2024-02-26 09:40 | WPDHPUPDATE1 ---
History and Physical Update Update Date/Time: 02/26/24 09:40 History and Physical has been reviewed, including an updated exam of the patient. There are NO changes in the patient's condition. Risks, benefits, and alternatives have been discussed and questions answered. Patient agrees to proceed with procedure. Proceed with cystoscopy, left retrograde pyelogram, left ureteroscopy with stone extraction, possible laser, stent placement
--- NOTE | 2024-02-26 09:59 | PC.NURSE ---
Patient off of unit to surgery
--- NOTE | 2024-02-26 10:58 | WPDANESEPPF ---
Anes - Initial Pre Proc Eval Procedure: Operation Date: 02/26/24 12:00 Proposed Procedures p Cystoscopy,Left Ureteroscopy,Left Retrograde Pyelogram,Left Stone Extraction,Possible Holmium Laser,Possible Stent Placement - Hesham Mcgovern MD Date/Time: 02/26/24 10:58 Surgeon: Serenity Hannah MD Pre Op Diagnosis: Hypokalemia, Nephrolithiasis Patient Data Age: 48 Gender: M Height: 1.78 m Weight: 77.6 kg Last Vital Signs Temp 98.1 F 02/26/24 10:20 Pulse 77 02/26/24 10:20 Resp 16 02/26/24 10:20 BP 121/76 02/26/24 10:20 Pulse Ox 98 02/26/24 10:20 O2 Del Method Room Air 02/26/24 10:20 Allergies Allergy/AdvReac Type Severity Reaction Status Date / Time Penicillins AdvReac Mild NAUSEA Verified 02/23/24 22:34 Home Medications Medication Instructions Recorded Confirmed Type cefuroxime axetil 500 mg tablet 500 mg PO Q12H #14 tabs 02/22/24 02/23/24 Rx potassium chloride 20 mEq oral 20 meq PO BID #30 ea 02/22/24 02/23/24 Rx packet ibuprofen 200 mg capsule 400 mg PO TID PRN Pain (Scale 02/23/24 02/23/24 History Score 4-6) Laboratory Tests 02/24/24 02/25/24 02/25/24 19:56 12:28 13:27 WBC RBC Hgb Hct MCV MCH MCHC RDW Plt Count MPV Immature Gran % (Auto) Neut % (Auto) Lymph % (Auto) Lucas % (Auto) Eos % (Auto) Baso % (Auto) Lymph # (Auto) Lucas # (Auto) Eos # (Auto) Baso # (Auto) Abs Immat Gran (auto) Absolute Neuts (auto) Absolute Nucleated RBC Nucleated RBC % % Immature Plt Fraction ESR 18 mm/hr (0-20) Sodium Potassium Chloride Carbon Dioxide Anion Gap BUN Creatinine Estim Creat Clear Calc Estimated GFR Glucose Calcium Magnesium Total Bilirubin AST ALT Alkaline Phosphatase C-Reactive Protein 1.3 H mg/dL (<1.0) Total Protein Albumin Absolute Lymphocytes % CD4 Cells Absolute CD4 Count RPR Non-reactive (NonReactive) C. trachomatis (PCR) Not detected (NOT DETECTE) HIV-1 RNA logcopies/mL Cancelled Pending HIV-1 RNA PCR copies/ml Cancelled Pending HIV 1&2 Ag/Ab, 4th Gen Pending HIV 1&2 Ab/P24 Ag 4thGn Reactive (Negative) N. gonorrhoeae (PCR) Not detected (NOT DETECTE) 02/26/24 02/26/24 05:08 05:10 WBC 3.9 L K/mm3 (4.5-10.0) RBC 4.65 M/mm3 (4.6-6.20) Hgb 13.4 L g/dL (14.0-18.0) Hct 40.1 L % (42.0-52.0) MCV 86.2 fl (80-100) MCH 28.8 pg (26-34) MCHC 33.4 g/dl (32-36) RDW 13.5 % (11.5-14.5) Plt Count 105 L k/mm3 (150-375) MPV 11.4 H fl (7.4-10.4) Immature Gran % (Auto) 0.5 % (0-0.5) Neut % (Auto) 52.7 % (45.5-73.1) Lymph % (Auto) 35.0 % (18.3-44.2) Lucas % (Auto) 10.2 H % (2.6-8.5) Eos % (Auto) 1.3 % (0-4.4) Baso % (Auto) 0.3 % (0.2-1.2) Lymph # (Auto) 1.38 K/mm3 (0.9-3.2) Lucas # (Auto) 0.4 K/mm3 (0.1-0.6) Eos # (Auto) 0.1 K/mm3 (0-0.3) Baso # (Auto) 0.0 K/mm3 (0.0-0.1) Abs Immat Gran (auto) 0.02 K/mm3 (0.00-0.031) Absolute Neuts (auto) 2.1 K/mm3 (1.3-6.7) Absolute Nucleated RBC 0.000 K/mm3 (0.0-0.012) Nucleated RBC % 0.0 % (0.0-0.2) % Immature Plt Fraction 5.4 % (0.9-11.2) ESR Sodium 136 L mmol/L (137-145) Potassium 3.3 L mmol/L (3.4-5.0) Chloride 1
[2024-02-26] MEDS: LACTATED RINGERS 1,000 ML 30 ML IV CONT (11:30)
--- NOTE | 2024-02-26 12:09 | W.PM.PROC2 ---
Procedure Note - Detailed Date of Procedure 02/26/24 Pre-op Diagnosis Left ureteral/renal calculi Post-op Diagnosis Same Procedure Performed Cystoscopy, urethral dilation, left ureteroscopy with holmium laser, left ureteral stent placement 4.8 [place] contour Surgeon Hesham Mcgovern MD Anesthesia General Description of Procedure Patient was taken to the operative suite correctly identified. Once anesthesia was obtained was placed in dorsal lithotomy position and prepped draped usual sterile fashion. The meatus was dilated using male sounds up to 22 Canadian. Nineteen Canadian cystoscope was then inserted into the urethra. There was no urethral strictures noted but his meatus is somewhat tight. No obstructing prostate. Bladder without any tumors. Left ureteral orifice was cannulated with a guidewire. I dilated the orifice with an 8/10 dilator. Rigid ureteral scope was inserted into the orifice. The distal and mid ureter had no evidence of stones. I then placed a ureteral access sheath in. I reinspected the proximal ureter. There were no stones visualized in the proximal ureter which was in contrast to the CT findings. Upon entering the bladder there was 3-4 stones noted. Using a 500 micron fiber I dusted the stones. No significant stone burden was then noted. Pyelogram was then performed to confirm placement of the stent. 4.8 [place] contour stent was then placed with the proximal end coiled in the left renal pelvis and the distal in the bladder. Bladder was drained. 2% viscous lidocaine was inserted into the urethra and patient was taken recovery stable condition. Will plan on stent removal in a week. This completes dictation on this patient. Please send a copy of op note to my office. Estimated Blood Loss 0 Urine Output 200 Drains Yes Packing No Pathology None sent Complications No immediate complications Condition Stable Disposition PACU
[2024-02-26] MEDS: POTASSIUM CHLORIDE 20 MEQ ER TABLET 40 MEQ PO (14:37)
--- NOTE | 2024-02-26 14:57 | WPDGIPROGNO ---
Progress Note: A&P Assessment and Plan (1) Chronic diarrhea: Code(s): K52.9 - Noninfective gastroenteritis and colitis, unspecified Status: Acute Assessment and Plan: he is better after kidney stone treated by urology will schedule colonoscopy in 4-6 weeks as outpatient no objections to discharge (2) Proctitis: Code(s): K62.89 - Other specified diseases of anus and rectum Status: Acute (3) Calculus of proximal ureter: Code(s): N20.1 - Calculus of ureter Status: Acute Assessment and Plan: treated, probably cause of pain (4) Nausea & vomiting: Qualifiers: Vomiting type: unspecified Qualified Code(s): R11.2 - Nausea with vomiting, unspecified Code(s): R11.2 - Nausea with vomiting, unspecified Status: Acute Assessment and Plan: resolved egd as outpatient (5) Pancytopenia: Code(s): D61.818 - Other pancytopenia Status: Acute Assessment and Plan: evaluated by hematology work up on progress Subjective Date/time seen: 02/26/24 14:57 Interval history: underwent Cystoscopy, urethral dilation, left ureteroscopy with holmium laser, left ureteral stent placement 4.8 [place] contour. He is feeling much better, pain almost gone. Review of Systems Review of Systems: All systems reviewed & are unremarkable except as noted in HPI and below Exam Const: General: comfortable and no acute distress HENMT: Face/Nose/Sinus: Normal nares present Eyes: General: appearance normal, both eyes and all related structures Neck: Neck: supple Resp: Auscultation: clear to auscultation bilaterally Cardio: Rate: regular rate Rhythm: regular rhythm GI: Inspection: non-distended GI Palp: Yes Soft to palpation and No Tenderness to palpation present (GI) Auscultation: normal bowel sounds Skin: General skin exam: normal color Neuro: Speech: normal speech Motor exam (neuro): 5/5 motor strength present throughout Extrem: General: normal to inspection Psych: Mental Status: mental status grossly normal Objective Data Vital Signs Vital Signs: Vital Signs - 24 hr 02/25/24 16:00 02/25/24 21:37 02/25/24 20:00 Temperature 97.7 F Pulse Rate 73 72 72 Respiratory Rate 16 16 Blood Pressure 155/77 H Pulse Oximetry 100 98 Oxygen Delivery Room Air Oxygen Flow Rate 02/25/24 20:00 02/26/24 00:00 02/26/24 04:00 Temperature Pulse Rate 74 76 80 Respiratory Rate Blood Pressure Pulse Oximetry Oxygen Delivery Oxygen Flow Rate 02/26/24 06:00 02/26/24 09:06 02/26/24 08:00 Temperature 98.1 F Pulse Rate 76 76 Respiratory Rate 17 Blood Pressure 137/74 Pulse Oximetry 100 Oxygen Delivery Room Air Oxygen Flow Rate 02/26/24 10:20 02/26/24 12:10 02/26/24 12:20 Temperature 98.1 F 97.8 F Pulse Rate 77 90 85 Respiratory Rate 16 12 16 Blood Pressure 121/76 105/82 138/81 Pulse Oximetry 98 100 100 Oxygen Delivery Room Air Simple Face Mask Simple Face Mask Oxygen Flow Rate 8 8 02/26/24 12:35 02/26/24 12:50 02/26/24 13:05 Temperature Pulse Rate 80 79 79 Respiratory Rate 18 16 12 Blood Pressure 149/90 H 149/92 H 159/96 H Pulse Oximetry 100 100 100 Oxygen Delivery Room Air Room Air Room Air Oxygen Flow Rate 02/26/24 13:20 02/26/24 11:05 Temperature 98.1 F Pulse Rate 77 83 Respiratory Rate 16 14 Blood Pressure 155/90 H 150/87 H Pulse Oximetry 100 99 Oxygen Delivery Room Air Oxygen Flow Rate Intake/Output Intake/Output: Intake & Output 02/23/24 02/24/24 02/25/24 02/26/24 23:59 23:59 23:59 23:59 Intake Total 2050 1720 2305 50 Output Total 200 200 Balance 2050 1720 2105 -150 Meds/Results Medications: Active Medications Generic Name Dose Route Start Last Admin Trade Name Freq PRN Reason Stop Dose Admin Acetaminophen 325 mg 02/24/24 11:28 Acetaminophen 325 Mg Tablet PO Q4H PRN Mild Pain (1-3) or Fever Hydrocodone Bitart/[place]
[2024-02-26 16:11] LABS: Cholesterol 138 mg/dL (0-200); HDL Direct 25 mg/dL; Triglycerides 117 mg/dL (<150)
[2024-02-26 16:22] LABS: LDL Cholesterol Direct 102 mg/dL
[2024-02-26] MEDS: FERROUS SULFATE 325 MG TABLET DR PO (16:53)
[2024-02-26] MEDS: [UNRECOGNIZED DRUG - OTHER] PO (16:53)
[2024-02-26] MEDS: EMTRICITABINE PO (16:53)
[2024-02-26] MEDS: ACETAMINOPHEN 325 MG TABLET PO (16:55)
[2024-02-26] MEDS: TAMSULOSIN HCL 0.4 MG CAPSULE PO (20:53)
[2024-02-26] MEDS: PANTOPRAZOLE 40 MG TABLET PO (20:53)
[2024-02-26 21:53] LABS: Glucose Point of Care 163 mg/dl (65-105)
[2024-02-27] VITALS: PULSE 78
[2024-02-27 04:00] VITALS: PULSE 73
[2024-02-27 05:47] VITALS: BP 159/80; PULSE 70; RESP 19; TEMP 36.5; O2SAT 100
[2024-02-27 06:02] LABS: Basophils Percent Auto 0.3 % (0.2-1.2); Eosinophils Percent Auto 0.3 % (0-4.4); Hematocrit 41.9 % (42.0-52.0); Hemoglobin 13.9 g/dL (14.0-18.0); Immature Granulocyte Absolute 0.02 K/mm3 (0.00-0.031); Immature Granulocyte Percent A 0.5 % (0-0.5); Immature Platelet Fraction Pct 6.4 % (0.9-11.2); Lymphocytes Absolute Auto 1.44 K/mm3 (0.9-3.2); Lymphocytes Percent Auto 36.7 % (18.3-44.2); Mean Corpuscular HGB Conc 33.2 g/dl (32-36); Mean Corpuscular Hemoglobin 28.7 pg (26-34); Mean Corpuscular Volume 86.4 fl (80-100); Mean Platelet Volume 11.5 fl (7.4-10.4); Monocytes Absolute Auto 0.4 K/mm3 (0.1-0.6); Monocytes Percent Auto 9.9 % (2.6-8.5); Neutrophils Absolute Auto 2.1 K/mm3 (1.3-6.7); Neutrophils Percent Auto 52.3 % (45.5-73.1); Platelet Count Result 115 k/mm3 (150-375); Red Blood Count 4.85 M/mm3 (4.6-6.20); Red Cell Distribution Width 13.4 % (11.5-14.5); White Blood Count 3.9 K/mm3 (4.5-10.0)
[2024-02-27 06:11] LABS: Alanine Aminotransferase 18 U/L (6-50); Albumin Level 3.5 g/dL (3.5-5.1); Alkaline Phosphatase 97 U/L (38-126); Anion Gap 5 mmol/L (4-12); Aspartate Amino Transferase 28 U/L (17-59); Blood Urea Nitrogen 12 mg/dL (9-20); Carbon Dioxide 32 mmol/L (22-30); Chloride 103 mmol/L (98-107); Estimated CRCL calculation 114 ml/min; Estimated Glomerular Filt Rate > 60; Glucose 103 mg/dL (65-110); Magnesium 1.9 mg/dL (1.6-2.3); Potassium 4.1 mmol/L (3.4-5.0); Sodium 140 mmol/L (137-145)
--- NOTE | 2024-02-27 07:59 | WPDANESPN ---
Anes - Prog Note Post-Op Date/Time: 02/27/24 07:59 Cardiovascular status: normal Respiratory status: normal Airway patency: baseline Mental status: baseline Post-Op hydration status: normal Vital Signs: Last Vital Signs Temp 36.5 C 02/27/24 05:47 Pulse 70 02/27/24 05:47 Resp 19 02/27/24 05:47 BP 159/80 H 02/27/24 05:47 Pulse Ox 100 02/27/24 05:47 O2 Del Method Room Air 02/26/24 13:20 O2 Flow Rate 8 02/26/24 12:20 Pain Score (VAS): 0 I/O: Intake & Output 02/26/24 02/26/24 02/27/24 15:59 23:59 07:59 Intake Total 0 440 Output Total 200 Balance -200 440 Laboratory Tests 02/27/24 05:18 02/27/24 05:18 02/26/24 02/26/24 02/27/24 15:26 21:46 05:18 WBC 3.9 L RBC 4.85 Hgb 13.9 L Hct 41.9 L MCV 86.4 MCH 28.7 MCHC 33.2 RDW 13.4 Plt Count 115 L MPV 11.5 H Immature Gran % (Auto) 0.5 Neut % (Auto) 52.3 Lymph % (Auto) 36.7 [place] % (Auto) 9.9 H Eos % (Auto) 0.3 Baso % (Auto) 0.3 Lymph # (Auto) 1.44 [place] # (Auto) 0.4 Eos # (Auto) 0.0 Baso # (Auto) 0.0 Abs Immat Gran (auto) 0.02 Absolute Neuts (auto) 2.1 Absolute Nucleated RBC 0.000 Nucleated RBC % 0.0 % Immature Plt Fraction 6.4 Sodium 140 Potassium 4.1 Chloride 103 Carbon Dioxide 32 H Anion Gap 5 BUN 12 D Creatinine 0.70 Estim Creat Clear Calc 114 Estimated GFR > 60 Glucose 103 POC Capillary Glucose 163 H Calcium 8.0 L Magnesium 1.9 Total Bilirubin 1.0 AST 28 ALT 18 Alkaline Phosphatase 97 Total Protein 6.0 L Albumin 3.5 Triglycerides 117 Cholesterol 138 LDL Cholesterol Direct 102 HDL Direct 25 TB Test (QFT) Gold Plus Pending TB Test (QFT) Nil Pending TB Test Mitogen - Nil Pending TB Test Ag - Nil 1 Pending TB Test Ag - Nil 2 Pending Post-procedural complaints: none Patient Feedback: Patient satisfied with anesthetic care.
[2024-02-27 08:00] VITALS: PULSE 78
[2024-02-27] MEDS: POTASSIUM CHLORIDE 20 MEQ ER TABLET 40 MEQ PO (09:08)
[2024-02-27] MEDS: PANTOPRAZOLE 40 MG TABLET PO (09:08)
[2024-02-27] MEDS: ATORVASTATIN 20 MG TABLET PO (09:08)
[2024-02-27] MEDS: CYANOCOBALAMIN 1,000 MCG TABLET 1000 MCG PO (09:08)
[2024-02-27] MEDS: FERROUS SULFATE 325 MG TABLET DR PO (09:08)
[2024-02-27] MEDS: EMTRICITABINE PO (09:09)
[2024-02-27] MEDS: [UNRECOGNIZED DRUG - OTHER] PO (09:09)
[2024-02-27 12:00] VITALS: PULSE 81
--- NOTE | 2024-02-27 12:36 | WPDUROPN2 ---
Progress Note: A&P Assessment and Plan (1) Kidney stone on left side: Code(s): N20.0 - Calculus of kidney Status: Acute (2) Calculus of proximal ureter: Code(s): N20.1 - Calculus of ureter Status: Acute Plan Underwent cystoscopy, urethral dilation, left ureteroscopy with holmium laser lithotripsy, and left ureteral stent placement on 02/26/[address] Mcgovern. Tolerated well; pain well controlled; voiding well. Will schedule outpatient follow up in 1 week for stent removal Okay for discharge from urologic standpoint Subjective Subjective Date/Time Seen: 02/27/24 12:36 Interval history: Santosh is feeling well today. He tolerated surgery well yesterday. Reports some very mild stent discomfort but not overly bothersome. Denies dysuria. Reports urine is clear pinkish. Denies nausea, vomiting, fever, chills. Tolerating his diet. Review of Systems Review of Systems: All systems reviewed & are unremarkable except as noted in HPI and below Exam Narrative: General: Awake, alert, comfortable, no acute distress HEENT: Normocephalic, atraumatic, sclerae anicteric Respiratory: Normal respiratory effort, no accessory muscle use Abdomen: Nondistended, soft, nontender Skin: Normal coloration, warm and dry Neurologic: No focal neuro deficits noted Psychiatric: Appropriate mood and affect, judgment and insight intact Objective Data Vital Signs Vital Signs: Vital Signs - 24 hr 02/26/24 12:50 02/26/24 13:05 02/26/24 13:20 Temperature Pulse Rate 79 79 77 Respiratory Rate 16 12 16 Blood Pressure 149/92 H 159/96 H 155/90 H Pulse Oximetry 100 100 100 Oxygen Delivery Room Air Room Air Room Air 02/26/24 16:00 02/26/24 20:00 02/26/24 21:41 Temperature 97.1 F L Pulse Rate 83 81 78 Respiratory Rate 19 Blood Pressure 140/81 Pulse Oximetry 100 Oxygen Delivery 02/27/24 00:00 02/27/24 04:00 02/27/24 05:47 Temperature 97.7 F Pulse Rate 78 73 70 Respiratory Rate 19 Blood Pressure 159/80 H Pulse Oximetry 100 Oxygen Delivery 02/27/24 08:00 02/27/24 08:00 02/27/24 12:00 Temperature Pulse Rate 78 81 Respiratory Rate Blood Pressure Pulse Oximetry Oxygen Delivery Room Air Intake/Output Intake/Output: Intake & Output 02/24/24 02/25/24 02/26/24 02/27/24 23:59 23:59 23:59 23:59 Intake Total 1720 2305 490 240 Output Total 200 200 Balance 1720 2105 290 240 Meds/Results Medications: Active Medications Generic Name Dose Route Start Last Admin Trade Name Freq PRN Reason Stop Dose Admin Acetaminophen 325 mg 02/24/24 11:28 02/26/24 16:55 Acetaminophen 325 Mg Tablet PO 325 mg Q4H PRN Administration Mild Pain (1-3) or Fever Hydrocodone Bitart/Acetaminophen 1 tab 02/24/24 11:28 Hydrocodone/Acetaminophen (*Crx) 5-325 Mg Tablet PO Q4H PRN Pain Rated 7-10 Atorvastatin Calcium 20 mg 02/27/24 09:00 02/27/24 09:08 Atorvastatin 20 Mg Tablet PO 20 mg DAILY HELEN Administration Cyanocobalamin 1,000 mcg 02/25/24 09:00 02/27/24 09:08 Cyanocobalamin 1,000 Mcg Tablet PO 1,000 mcg QAM HELEN Administration Fentanyl Citrate 25 mcg 02/26/24 11:05 Fentanyl Citrate Inj (*Crx) 100 Mcg/2 Ml Vial IV PUSH Q2M PRN Pain Ferrous Sulfate 325 mg 02/25/24 09:00 02/27/24 09:08 Ferrous Sulfate [address] PO 325 mg BID HELEN Administration Ketorolac Tromethamine 15 mg 02/24/24 11:28 02/26/24 14:36 Ketorolac 15 Mg/Ml Vial (*Bkc) IV PUSH 15 mg Q6H PRN Administration Pain Rated 4-6 Non-Formulary ( 1 each 02/26/24 16:05 02/27/24 09:09 Bictegravir Sodium/ PO 03/27/24 16:04 1 each Emtricitabine/ DAILY HELEN Administration Tenofovir Alafenamide Fumar 50 Mg-...) Ondansetron HCl 4 mg 02/23/24 20:38 02/26/24 00:55 Ondansetron Inj 4 Mg/2 Ml Vial IV PUSH 4 mg Q6H PRN Administration Nausea And Vomiting Ondansetron HCl 4 mg 02/26/24 11:05 O
--- NOTE | 2024-02-27 12:57 | P.DS_ITS ---
DS: Admitting Diagnosis Discharge Date 02/27/24 Admitting Diagnosis abdominal pain in left flank DS: Discharge Diagnosis Discharge Diagnosis (1) Acute abdominal pain in left flank: Code(s): R10.9 - Unspecified abdominal pain Status: Acute Assessment and Plan: * CT abdomen and pelvis shows 5 mm left UPJ stone with [id number] obstructive uropathy, Splenomegaly with abdominal pelvic lymphadenopathy present, Cholelithiasis, Mild esophagitis and gastritis. Also showing distal colitis and proctitis. * Tylenol, Toradol, [place] for pain * Urine culture from 02-21 was negative * Worked up splenomegaly with lymphadenopathy with labs CBC with peripheral blood smear, reticulocyte count, LDH, CMP, HIV, and uric acid. * Consulted Hematology for pancytopenia * Worked up colitis/proctitis with RPR, HSV, Gonorrhea, chlamydia, HIV, fecal calprotectin, r/o c-diff. * GI consulted for colitis/proctitis, will schedule colonoscopy in 4-6 weeks as outpatient (2) Acute hypokalemia: Code(s): E87.6 - Hypokalemia Status: Resolved Assessment and Plan: d/c on PO potassium (3) Proctitis: Code(s): K62.89 - Other specified diseases of anus and rectum Status: Acute Assessment and Plan: * Colitis, proctitis seen on CT abd/pelvis and patient here with diarrhea with profound hypokalemia * stool studies ordered, including c-diff to rule out infectious etiology versus pancreatic insufficiency * Working up proctitis with RPR, HSV, Gonorrhea, chlamydia, HIV to r/o STD source * Fecal calprotectin pending * Protonix BID (4) Kidney stone on left side: Code(s): N20.0 - Calculus of kidney Status: Acute Assessment and Plan: * 5 mm stone in the left UVJ * CT abdomen and pelvis to confirm stone * S/p cysto with laser and stent placement * Needs to follow up with urology in 1 week for stent removal (5) Nausea & vomiting: Qualifiers: Vomiting type: unspecified Qualified Code(s): R11.2 - Nausea with vomiting, unspecified Code(s): R11.2 - Nausea with vomiting, unspecified Status: Resolved (6) Pancytopenia: Code(s): D61.818 - Other pancytopenia Status: Acute Assessment and Plan: * Splenomegaly and lymphadenopathy seen on CT. No history of lymphoproliferative disorder * CT chest with no lymph node findings * Iron deficient anemia with borderline low B12 * Flow cytometry ordered for lymphoma * Heme/Onc to proceed with biopsy if flow cytometry negative. * HIV 1&2 ag reactive * CD4 count 163 * Biktarvy * Call out to patient's SCREENING TECHNICIAN to ask for infectious disease consult * TB testing given HIV diagnosis pending DS: Summary Hospital Course Hospital Course: Patient is a 48-year-old male with PMH of diabetes recently on Trulicity and metformin and diverticulitis with partial colectomy. He presented to the ED with complaints of left lower quadrant pain and left flank pain with associated nausea. Also reports diarrhea that has been going on since starting metformin and Trulicity in August of last year. He recently stopped his Trulicity and metformin approximately 1 month ago because of the diarrhea it was causing. His A1c initially was 9.2 and most recently was 6.6%. He still having loose stools but no longer diarrhea. He denies fever, chills, sore throat, runny nose, chest pain, shortness of breath, or difficulty with urination. In the ED his labs were significant for platelet count of [address] abdomen and pelvis showed mild esophagitis, gastritis with choleli
--- NOTE | 2024-02-27 12:57 | PM.DS ---
DS: Admitting Diagnosis Discharge Date 02/27/24 Admitting Diagnosis abdominal pain in left flank DS: Discharge Diagnosis Discharge Diagnosis (1) Acute abdominal pain in left flank: Code(s): R10.9 - Unspecified abdominal pain Status: Acute Assessment and Plan: CT abdomen and pelvis shows 5 mm left UPJ stone with [id number] obstructive uropathy, Splenomegaly with abdominal pelvic lymphadenopathy present, Cholelithiasis, Mild esophagitis and gastritis. Also showing distal colitis and proctitis. Tylenol, Toradol, [place] for pain Urine culture from - was negative Worked up splenomegaly with lymphadenopathy with labs CBC with peripheral blood smear, reticulocyte count, LDH, CMP, HIV, and uric acid. Consulted Hematology for pancytopenia Worked up colitis/proctitis with RPR, HSV, Gonorrhea, chlamydia, HIV, fecal calprotectin, r/o c-diff. GI consulted for colitis/proctitis, will schedule colonoscopy in 4-6 weeks as outpatient (2) Acute hypokalemia: Code(s): E87.6 - Hypokalemia Status: Resolved Assessment and Plan: d/c on PO potassium (3) Proctitis: Code(s): K62.89 - Other specified diseases of anus and rectum Status: Acute Assessment and Plan: Colitis, proctitis seen on CT abd/pelvis and patient here with diarrhea with profound hypokalemia stool studies ordered, including c-diff to rule out infectious etiology versus pancreatic insufficiency Working up proctitis with RPR, HSV, Gonorrhea, chlamydia, HIV to r/o STD source Fecal calprotectin pending Protonix BID (4) Kidney stone on left side: Code(s): N20.0 - Calculus of kidney Status: Acute Assessment and Plan: 5 mm stone in the left UVJ CT abdomen and pelvis to confirm stone S/p cysto with laser and stent placement Needs to follow up with urology in 1 week for stent removal (5) Nausea & vomiting: Qualifiers: Vomiting type: unspecified Qualified Code(s): R11.2 - Nausea with vomiting, unspecified Code(s): R11.2 - Nausea with vomiting, unspecified Status: Resolved (6) Pancytopenia: Code(s): D61.818 - Other pancytopenia Status: Acute Assessment and Plan: Splenomegaly and lymphadenopathy seen on CT. No history of lymphoproliferative disorder CT chest with no lymph node findings Iron deficient anemia with borderline low B12 Flow cytometry ordered for lymphoma Heme/Onc to proceed with biopsy if flow cytometry negative. HIV 1&2 ag reactive CD4 count 163 [place] Call out to patient's CHANGE MANAGER to ask for infectious disease consult TB testing given HIV diagnosis pending DS: Summary Hospital Course Hospital Course: Patient is a 48-year-old male with PMH of diabetes recently on Trulicity and metformin and diverticulitis with partial colectomy. He presented to the ED with complaints of left lower quadrant pain and left flank pain with associated nausea. Also reports diarrhea that has been going on since starting metformin and Trulicity in August of last year. He recently stopped his Trulicity and metformin approximately 1 month ago because of the diarrhea it was causing. His A1c initially was 9.2 and most recently was 6.6%. He still having loose stools but no longer diarrhea. He denies fever, chills, sore throat, runny nose, chest pain, shortness of breath, or difficulty with urination. In the ED his labs were significant for platelet count of [address] abdomen and pelvis showed mild esophagitis, gastritis with cholelithiasis. As well as splenomegaly with abdominal pelvic lymphadenopathy, 5 mm left UVJ stone causing mild to moderate obstructive uropathy, and distal colitis, proctitis. UA shows cloudy urine with 3+ blood, 1+ bili, leukocyte esterase trace, greater than 100 rbc's and 6-10 WBC. He was admitted in the setting for further workup of abdominal pain and urology consult. Status at Discharge Functional status a
[2024-02-27 18:29] LABS: Absolute CD4 Count 163 cells/uL (490-1740); Lymphocytes, Absolute 1580 cells/uL (850-3900); Percent CD4 Cells 10 % (30-61)
[2024-02-27 20:48] LABS: Herpes Simplex Type 1 DNA PCR NOT DETECTED; Herpes Simplex Type 2 DNA PCR NOT DETECTED
[2024-02-28 12:48] LABS: NIL 0.02 IU/mL; Quantiferon TB Plus, 1T NEGATIVE (NEGATIVE); TB1-NIL <0.00 IU/mL; TB2-NIL <0.00 IU/mL
[2024-02-28 18:42] LABS: HIV 1 2 Ag Ab 4th Gen w Rflxs REPEATEDLY REACTIVE (NON-REACTIVE); HIV 1 Ab Chg Test Yes; HIV 1 Antibody POSITIVE (NEGATIVE); HIV 2 Ab Chg Test Yes; HIV 2 Antibody NEGATIVE (NEGATIVE)
[2024-02-29 15:07] LABS: HIV 1 RNA PCR 4420000 copies/mL (NOT DETECTED); HIV 1 RNA PCR 6.65 (NOT DETECTED)
== END 2024-02-27 13:55 | disposition home or self-care (01) | DRG 660 ==
LOC: ANHED 19:30 → ANH3MED 19:49
PROVIDERS: Internal Medicine Hematology & Oncology; Nurse Practitioner Acute Care; Nurse Practitioner Family; Urology; Admitting Provider Internal Medicine; Emergency Provider Preventive Medicine Aerospace Medicine; PCP Nurse Practitioner Family; Visit Provider Nurse Practitioner
PROC: 0T778DZ Dilation of Left Ureter with Intraluminal Device, Via Natural or Artificial Opening Endoscopic (ICD-10-PCS; CPT 52352; principal; 2024-02-26 12:00)
DX: N13.2 Hydronephrosis with renal and ureteral calculous obstruction (principal); D61.818 Other pancytopenia; R11.2 Nausea with vomiting, unspecified; E87.6 Hypokalemia; E11.9 Type 2 diabetes mellitus without complications; D51.9 Vitamin B12 deficiency anemia, unspecified; D50.9 Iron deficiency anemia, unspecified; K80.20 Calculus of gallbladder without cholecystitis without obstruction; K20.90 Esophagitis, unspecified without bleeding; K29.60 Other gastritis without bleeding; K62.89 Other specified diseases of anus and rectum; K52.9 Noninfective gastroenteritis and colitis, unspecified; D69.6 Thrombocytopenia, unspecified
CPT/HCPCS: 36415; 71046; 71260; 74018; 74176; 74177; 74420; 80048; 80053; 80061; 80074; 81001; 82607; 82746; 82948; 83540; 83550; 83605; 83615; 83690; 83735; 83880; 84132; 84153; 84484; 84550; 85025; 85046; 85055; 85610; 85652; 85730; 86140; 86361; 86480; 86592; 86701; 86702; 86703; 87086; 87389; 87491; 87529; 87536; 87591; 87637; 88184; 93005; 96361; 96365; 96366; 96367; 96374; 96375; 96376; 99284; 99285; A9270; C1769; C1894; C2617; C9113; G0378; G0432; J0696; J1100; J1756; J1885; J2250; J2270; J2371; J2405; J2704; J3010; J3475; J3480; J7040; J7050; J7120; Q9967

== ENCOUNTER 2024-06-19 13:44 | Emergency (ER) | payer OTHER, SELFPAY ==
[2024-06-19 14:03] VITALS: BP 133/75; PULSE 93; RESP 16; TEMP 37; O2SAT 100
--- NOTE | 2024-06-19 14:50 | ED.SKABFB ---
HPI - Skin/Abscess/Foreign Bdy General Chief complaint: Skin/Abscess/Foreign Body Stated complaint: Bumps/Lumps On Body Source: patient Mode of arrival: ambulatory Limitations: no limitations History of Present Illness HPI narrative: 48-year-old male with a history of HIV and diabetes presented for complaint of multiple skin abscesses on the arms and one on the buttock. States they have been worsening over the past few days and now draining. The right forearm he reports surrounding redness and swelling and decreased range of motion to the wrist. He denies nausea, vomiting, fevers or chills. Related Data Allergies Allergy/AdvReac Type Severity Reaction Status Date / Time Penicillins AdvReac Mild NAUSEA Verified 06/19/24 14:12 Review of Systems Review of Systems: CONSTITUTIONAL: Denies body aches, fever, chills, or sweats. CARDIOVASCULAR: Denies chest pain, palpitations, or edema. RESPIRATORY: Denies cough or dyspnea. GASTROINTESTINAL: Denies abdominal pain, nausea, vomiting, or diarrhea. SKIN: reports skin cysts MUSCULOSKELETAL: Denies back pain, joint pain, or myalgia. NEUROLOGIC: Denies headache, numbness, tingling, or weakness. [facility] Past Medical History Medical History (Updated 06/19/24 @ 20:30 by Iveth Gutierrez APRN) HIV disease T2DM (type 2 diabetes mellitus) Surgical History Surgical History History of colectomy Family History Family History Mother Diverticulosis COPD (chronic obstructive pulmonary disease) Father Myocardial infarction Sibling Healthy adult male Social History Social History Smoking status: Never smoker Alcohol intake: never Substance use: never Do You Feel Safe in your Home?: Yes Lack of Transportation: No Lack of Food: Never True Current Housing: I Have Housing Concerned About Future Housing: No Difficulty Paying Gas/Electric Bills: No Difficulty Paying for Meds: No Currently Unemployed: No Education: Bachelor's Degree Difficulty w/ Childcare or Family Care: No Spiritual care concerns: No Comments At time of signature, I have reviewed and agree with nursing past medical, surgical, social and family history unless otherwise noted. Please see nursing chart for further information. There is no relevant family history pertinent to the presenting complaint Exam Narrative: GENERAL: Well-appearing ENT: Mucous membranes moist. Oropharynx without edema, erythema or lesions. CHEST: Clear to auscultation. HEART: Regular rate and rhythm. SKIN: Warm, dry. Right forearm abscess 2 cm diameter, tender and fluctuant with active drainage. Left distal ulna abscess approximately 1.5 cm diameter, tender, active drainage. Few scattered dry firm abscesses noted to bilateral upper extremities without active drainage. Right buttock with firm abscess with pustule at center, no active drainage. NEURO: Alert and oriented x3. Course Course Emergency Course: Patient is aware of diagnosis, understands and agrees to treatment plan. Anticipatory guidance given. Patient agrees to follow-up as directed and is aware of reasons to seek care at the emergency department. Portions of this record may have been created with voice recognition software Level of Care: Express Care Visit Vital Signs Vital signs: Vital Signs Temperature 98.6 F 06/19/24 14:03 Pulse Rate 93 06/19/24 14:03 Respiratory Rate 16 06/19/24 14:03 Blood Pressure 133/75 06/19/24 14:03 Pulse Oximetry 100 06/19/24 14:03 Oxygen Delivery Room Air 06/19/24 14:03 Temperature 98.6 F 06/19/24 14:03 Pulse Rate 93 06/19/24 14:03 Respiratory Rate 16 06/19/24 14:03 Blood Pressure 133/75 06/19/24 14:03 Pulse Oximetry 100 06/19/24 14:03 Oxygen Delivery Room Air 06/19/24 14:03 Review
== END 2024-06-19 16:17 | disposition home or self-care (01) ==
PROVIDERS: Emergency Provider Nurse Practitioner Family; PCP Nurse Practitioner Family
DX: L02.414 Cutaneous abscess of left upper limb (principal); L02.413 Cutaneous abscess of right upper limb; L02.31 Cutaneous abscess of buttock; Z21 Asymptomatic human immunodeficiency virus [HIV] infection status; E11.9 Type 2 diabetes mellitus without complications
CPT/HCPCS: 10061; 99213; G0463

== ENCOUNTER 2025-01-10 13:51 | Emergency (ER) | payer OTHER, SELFPAY ==
[2025-01-10 14:04] VITALS: BP 121/73; PULSE 96; RESP 16; TEMP 35.8; O2SAT 98
--- NOTE | 2025-01-10 14:39 | ED_ITS ---
HPI - General Adult General Chief complaint: Urogenital-Male Stated complaint: thrush male & oral Time Seen by Provider: 01/10/25 14:39 Source: patient, RN notes reviewed and old records reviewed Mode of arrival: ambulatory Limitations: no limitations History of Present Illness HPI narrative: 49-year-old male with a history of insulin-dependent diabetes, HIV presents with sores in his mouth and a painful penis. Patient reports concern for thrush. States symptoms started 2-3 days ago. A friend of his called him in some fluconazole. Did take 1 dose this 6, 2 days ago. Patient reports trouble with urination. Onset (ago): day(s) (2-3) Treatments prior to arrival: other (Fluconazole) Related Data Home Medications ?Medication ?Instructions ?Recorded ?Confirmed ?Last Taken ?Type dulaglutide 1.5 mg/0.5 mL mg subcut 01/10/25 Unknown History subcutaneous pen injector (Trulicity) fluconazole 150 mg tablet mg 01/10/25 Unknown History Allergies Allergy/AdvReac Type Severity Reaction Status Date / Time Penicillins AdvReac Mild NAUSEA Verified 01/10/25 14:34 Review of Systems Review of Systems: All systems reviewed & are unremarkable except as noted in HPI and below Constitutional: Constitutional: Reports no additional constitutional complaints ENT: Reports as per HPI and Reports other (Mouth sores) Cardiovascular: Cardiovascular: Reports no additional cardiovascular complaints, Denies chest pain and Denies dyspnea Respiratory: Respiratory: Reports no additional respiratory complaints, Denies chest congestion, Denies cough and Denies dyspnea Genitourinary: Genitourinary: Reports as per HPI and Reports genital pain Musculoskeletal: Musculoskeletal: Reports no additional musculoskeletal complaints Integumentary/Breasts: Skin/Breast: Reports as per HPI PMFSH Past Medical History Medical History HIV disease T2DM (type 2 diabetes mellitus) Surgical History Surgical History History of colectomy Family History Family History Mother Diverticulosis COPD (chronic obstructive pulmonary disease) Father Myocardial infarction Sibling Healthy adult male Father Heart problem Social History Social History (Reviewed 01/10/25 @ 15:46 by ELIZ Porras Smoking status: Never smoker Alcohol intake: never Substance use: never Do You Feel Safe in your Home?: Yes Lack of Transportation: No Lack of Food: Never True Current Housing: I Have Housing Concerned About Future Housing: No Difficulty Paying Gas/Electric Bills: No Difficulty Paying for Meds: No Currently Unemployed: No Education: High School Diploma/GED Difficulty w/ Childcare or Family Care: No Spiritual care concerns: No Agree to blood products: Yes Comments At the time of my signature, I reviewed and agree with the nursing past medical, surgical, social, and family history. There is no relevant family history pertinent to the patient complaint. Exam Const: General: cooperative, no acute distress, well developed, alert, in distress moderate (pain), uncomfortable and well nourished Nutritional Appearance: well nourished Orientation/consciousness: patient oriented x3 Limitations: no limitations HENMT: Head: normal to inspection Ears: hearing grossly normal bilaterally, external ears normal, TM's normal bilaterally, EAC's normal, mastoids normal and no periauricular adenopathy Mouth: Yes lip normal and Yes other (multiple white lesions noted to the oral mucosa) Eyes: General: appearance normal, both eyes and all related structures Alignment and Position: alignment normal Neck: Neck: normal visual inspection, full ROM, no lymphadenopathy and no meningeal signs Chest: Chest palpation & inspection: normal inspection of the chest Resp: Effort & Inspection: normal respiratory effort and able to speak in complete sentences Cardio: Rate: regular rate : Other: Patient with complaints of pain. Unable to visualize, unable to retract periarea from the penis, inverted. Unable to expose penis. Thick white coating noted covering the inversion Chaperoned by Gunjan BOWEN Neuro: General: patient oriented x3, gait normal, moves all extremities and no meningeal signs Cognition (Neuro): normal cognition Speech: normal speech Gait exam (Neuro): Normal gait present Extrem: General: normal to inspection, full ROM, capillary refill normal and normal gait Psych: Appearance: grossly normal and well kempt Mental Status: mental status grossly normal Speech and movement: Normal speech and movement present and Clear speech present Affect: normal affect Attitude: cooperative Course Course Level of Care: Express Care Visit Vital Signs Vital signs: Vital Signs Temperature 96.5 F L 01/10/25 14:04 Pulse Rate 96 01/10/25 14:04 Respiratory Rate 16 01/10/25 14:04 Blood Pressure 121/73 01/10/25 14:04 Pulse Oximetry 98 01/10/25 14:04 Oxygen Delivery Room Air 01/10/25 14:04 Temperature 96.5 F L 01/10/25 14:04 Pulse Rate 96 01/10/25 14:04 Respiratory Rate 16 01/10/25 14:04 Blood Pressure 121/73 01/10/25 14:04 Pulse Oximetry 98 01/10/25 14:04 Oxygen Delivery Room Air 01/10/25 14:04 Reviewed Transfer Transfered to: [place] (per patient request) Transportation: Other (pov) Transfer rationale: Concerns for extreme pain, lack of/ trouble with urination. Concerns for balanitis, yeast dermatitis, cellulitis Accepting physician: Dr. Cain Medical Decision Making MDM Narrative Medical decision making narrative: Patient is sitting very uncomfortably in exam room. Vitals stable. Patient presents with penile pain and sores in his mouth. Sending for higher level of care Transfer instructions reviewed with patient go directly to the ER. All questions have been answered, and the patient deny any further questions Some parts of this dictation were generated by voice recognition software and may contain typographical and/or grammatical inaccuracies. Differential Diagnosis Differential Diagnosis: Yeast dermatitis, STD, balanitis, cellulitis Medical Records Medical records reviewed: Yes I reviewed the external patient's medical records. Vital Signs Vital Signs: Vital Signs Temperature 96.5 F L 01/10/25 14:04 Pulse Rate 96 01/10/25 14:04 Respiratory Rate 16 01/10/25 14:04 Blood Pressure 121/73 01/10/25 14:04 Pulse Oximetry 98 01/10/25 14:04 Oxygen Delivery Room Air 01/10/25 14:04 Temperature 96.5 F L 01/10/25 14:04 Pulse Rate 96 01/10/25 14:04 Respiratory Rate 16 01/10/25 14:04 Blood Pressure 121/73 01/10/25 14:04 Pulse Oximetry 98 01/10/25 14:04 Oxygen Delivery Room Air 01/10/25 14:04 Reviewed Lab Data Lab results reviewed: Yes I reviewed the patient's lab results. Labs: Reviewed Critical Care Time Critical Care Time Critical Care Time: No Discharge Plan Discharge Clinical Impression: Mouth ulcers, Pain in penis, Yeast dermatitis of penis Patient Disposition: Acute Care Hospital Condition: Stable Patient Language: Mohawk Prescriptions: No Action fluconazole 150 mg tablet Trulicity 1.5 mg/0.5 mL pen injector SUBCUT cyanocobalamin (vitamin B-12) [Vitamin B-12] 1,000 mcg Tablet 1,000 mcg PO QAM Qty: 60 0RF ferrous sulfate 325 mg (65 mg iron) Tablet,Delayed Release (Dr/Ec) 325 mg PO BID Qty: 60 0RF [id number] ala 50-200-25 mg Tablet 1 tablet PO DAILY Qty: 30 0RF Follow-up/Referrals: PHYSICIAN NOT ON STAFF,NONSTAFF [Primary Care Provider] -
== END 2025-01-10 15:03 | disposition short-term general hospital (02) ==
PROVIDERS: Emergency Provider Nurse Practitioner
DX: L98.499 Non-pressure chronic ulcer of skin of other sites with unspecified severity (principal); N48.89 Other specified disorders of penis; L30.8 Other specified dermatitis; E11.9 Type 2 diabetes mellitus without complications; B20 Human immunodeficiency virus [HIV] disease
CPT/HCPCS: 99212; G0463

== ENCOUNTER 2025-01-10 15:29 | Emergency (ER) | payer OTHER, SELFPAY ==
--- OUTSIDE RECORDS SUMMARY | 2025-01-10 15:32 | XMS_ITS | Data Portability ---
Author Organization [place] [facility] [employer], Main Office Address [address] [place] [address] Assessment Encounter Date Assessment Date Assessment LastModified by Organization Details LastModified Time 03/12/2024 03/12/2024 I have reconciled the patient's medications post their discharge from inpatient facility. Not available 03/12/2024 10:06:32 Plan of Treatment Reminders Order Date Submit Date Provider Last Modified By Organization Details Last Modified Time Details Appointments None recorded. Lab glycohemogl obin, total, blood 2023 024 [email or web address] [facility] (Lab), [address] [place], [address], 4 09:41:57 vitamin D, 25-hydroxy, total, serum [id number] (Lab), [address] [place], [address], 3 08:16:34 lipid panel, serum [id number] (Lab), [address] [place], [address], 3 08:16:33 PSA, serum or plasma 2022 023 MARICHUY [facility] (Lab), [address] [place], [address], 3 12:30:38 HbA1c (hemoglobin A1c), blood [email or web address] (Lab), [address] [place], [address], 3 08:16:34 TSH, serum, reflex free T4 [address] (Lab), [address] [place], [address], 3 08:16:34 urinalysis, complete [address] (Lab), [address] [place], [address], 3 08:16:34 CMP, serum or plasma 2022 023 [facility] (Lab), [address] [place], [address], 3 17:54:41 vitamin B12 + folate, serum or blood [address] (Lab), [address] [place], [address], 3 08:16:34 Referral None recorded. Procedures None recorded. Surgeries None recorded. Imaging None recorded. Medication Orders potassium chloride ER 20 mEq tablet,exte nded release 2023 024 [facility][id number], [address] [place], [place], [id number], 4 10:16:01 Trulicity 0.75 mg/0.5 mL subcutaneou s pen injector 2023 024 [facility] #[id number], [address] [facility], [place], [place], [id number], 4 08:21:54 Trulicity 1.5 mg/0.5 mL subcutaneou s pen injector 2023 024 [facility][id number], [address], [place], [place], [id number], 4 08:17:24 Jardiance 10 mg tablet 2023 024 [facility], [address] [facility], [place], [place], [id number], 4 08:17:25 metformin ER 500 mg tablet,exte nded release 24 hr 2022 023 [facility] #50605, [address] [facility], [place], [place], [id number], 3 08:24:59 Trulicity 0.75 mg/0.5 mL subcutaneou s pen injector 2022 023 [facility]81479, [address] [facility], [place], [place], [id number], 3 08:24:58 Patient TargetsNo targets recorded. Patient Instructions Encounter Date Encounter Id Patient Instructions Last Modified By Organization Details Last Modified Time 03/12/2024 [id number] Thank you for your visit to our office today. We would like to request that you reach out to your referring or previous provider and request that they send us a Summary of Care in electronic form, so that we may have it on file in your medical record. At your visit, we had the medical records we needed to provide you with the best possible care; however, for insurance purposes, an electronic Summary of Care is beneficial. Thank you for your assistance in obtaining this information and we look forward to providing continued care to you. Please review your medication list from the Summary of Care for this visit. If there are any differences from what you are currently taking at home, please call us to discuss. Not available 03/12/2024 10:06:32 Homebound Status : {{Patient has an inability to leave the home without a taxing effort and assistance from another person Does not meet homebound status*}} Required Home Health Services: {{none* penitentiary, physical therapy, occupational therapy penitentiary, physical therapy penitentiary}} Durable Medical Equipment needed: {{cane walker wal ker with seat manual wheelchair bedsid e commode oxygen}} Billing Guidelines CPT code 76316- Transitional Care Management services with moderate medical decision complexity (ylbv-tx-qmmv visit within 14 days of discharge). CPT code 41364- Transitional Care Management services with high medical decision complexity (zqxc-ly-fite visit within 7 days of discharge). Not available 03/12/2024 10:13:13 Reason for Referral None Reported. Results Created Date Observation Date Name Description Value Unit Range Abnormal Flag Note LastModifiedBy Organization Detail LastModifiedTime 02/24/20 24 02/22/2024 XR, chest , 2 view No observ ation record ed. [address], [address], 04/03/2024 08:06:53 02/24/20 24 02/23/2024 CT, abdom en + pelvi s, w/ contr ast No observ ation record ed. [address], [address], 04/03/2024 08:07:14 02/25/20 24 02/22/2024 XR, chest , 2 view No observ ation record ed. [address], [address], 04/03/2024 08:08:08 02/25/20 24 02/25/2024 CT, chest , w/ contr ast No observ ation record ed. [address], [address], 04/03/2024 08:09:00 02/26/20 24 02/26/2024 CT, abdom en + pelvi s, w/o contr ast No observ ation record ed. [address], [address], 03/03/2024 17:35:41 02/26/20 24 02/26/2024 XR, urogr am, retro grade No observ ation record ed. [email or web address] [facility] [address], [place], [address], 04/03/2024 08:11:48 Result Notes None recorded. Problems Name Problem SNOMED Code Status Onset Date Resolution Date Notes Provider Name and Address Organization Details Recorded Time Swelling of bilateral lower limbs 688140535 Active 2022 Not Available [facility] 4 03:07:24 Cobalamin deficiency 993418980 Active 2022 Not Available [facility] 4 03:07:23 Vitamin D deficiency 86870400 Active 2022 Not Available [facility] 4 03:07:24 Type 2 diabetes mellitus without complication 878155725 Active 2022 Not Available [facility] 4 03:07:24 Human immunodeficie ncy virus infection 92177238 Active 2023 TRESA Juarez [address], [address], [place], [address] , [employer] 4 17:05:49 Kidney stone 18045929 Active 2023 TRESA Juarez [address], [address], [place], [address] , [employer] 4 10:09:01 Hypokalemia 20768131 Active 2023 TRESA Juarez [address], [address], [place], [address] , [employer] 4 10:09:36 Problem Notes None recorded. Procedures Surgical History Date Name Laterality Status Provider Name and Address Organization Details Recorded Time 03/12/2024 Transition al_Care_Ma nagement completed ERICK Juarez-C [address], [address], [place], [address], [employer] 03/12/2024 10:14:29 Imaging Results Imaging Date Name Status LastModified by Organiz ation Details LastModified Time 02/22/2024 XR, chest, 2 view completed [address] [place] [address], [address], 04/03/2024 08:06:53 02/23/2024 CT, abdomen + pelvis, w/ contrast completed [address], [address], 04/03/2024 08:07:14 02/22/2024 XR, chest, [address] view [address], [address], 04/03/2024 08:08:08 02/25/2024 CT, chest, w/ contrast completed [address], [address], 04/03/2024 08:09:00 02/26/2024 CT, abdomen + pelvis, w/o contrast completed [address], [address], 03/03/2024 17:35:41 02/26/2024 XR, urogram, retrograde completed [address], [address], 04/03/2024 08:11:48 Procedure Notes None recorded. Medical Equipment None Reported. Allergies Allergen ID Allergen Name Allergen Category Reaction Reaction Severity Criticality Documentation Date Start Date Code Code System Note Provider Name and Address Organization Details Recorded Time 66138 Product containin g penicilli n (product) medicatio n hives itching moderate moderate Not available 08/06/2023 01687 8001 SNOMED Not Available [facility] 03:07[facility]03 Medications Name Sig Start Date Stop Date Status Note LastModified by Organization Details LastModified Time metformin 500 mg tablet TAKE 1 TABLET BY MOUTH TWICE DAILY 11/09 completed Not Available Not Available Not Available atorvastati n 20 mg tablet Take 1 tablet every day by oral route for 90 days. active Not Available Not Available No t Available clindamycin HCl 300 mg capsule TAKE ONE CAPSULE BY MOUTH THREE TIMES DAILY UNTIL ALL TAKEN active Not Available Not Available No t Available cyanocobala min (vit B-12) 1,000 mcg tablet Take 1 tablet every day by oral route in the morning. 2023 active Not Available Not Available Not Avai lable Klor-Con 20 mEq oral packet MIX 1 PACKET AND DRINK TWICE DAILY active Not Available Not Available No t Available potassium chloride ER 20 mEq tablet,exte nded release(par t/cryst) TAKE 2 TABLETS BY MOUTH EVERY DAY active Not Available Not Available No t Available pantoprazol e 40 mg tablet,bobby yed release TAKE 1 TABLET BY MOUTH EVERY 12 HOURS active Not Available Not Available No t Available cefuroxime axetil 500 mg tablet TAKE 1 TABLET BY MOUTH EVERY 12 HOURS active Not Available Not Available No t Available oxybutynin chloride 5 mg tablet TAKE 1 TABLET BY MOUTH THREE TIMES DAILY NEEDED FOR BLADDER SPASM active Not Available Not Available No t Available metformin ER 500 mg tablet,exte nded release 24 hr TAKE 1 TABLET BY MOUTH EVERY DAY active Not Available Not Available No t Available ferrous sulfate 325mg one daily 2023 active Not Available Not Available Not Avai lable potassium chloride ER 20 mEq tablet,exte nded release Take 2 tablets every day by oral route for 90 days. 2023 active Not Available Not Available Not Avai lable Jardiance 10 mg tablet TAKE 1 TABLET BY MOUTH EVERY DAY active Not Available Not Available No t Available Trulicity 1.5 mg/0.5 mL subcutaneou s pen injector Inject 1.5 mg every week by subcutane ous route. 2023 active Not Available Not Available Not Avai lable Trulicity 0.75 mg/0.5 mL subcutaneou s pen injector Inject by subcutane ous route for 28 days. active Not Available Not Available No t Available Biktarvy 50 mg-200 mg-25 mg tablet Take 1 tablet every day by oral route for 90 days. active Not Available Not Available No t Available Vitals Date Recorded Body weight Body mass index (BMI) Body height Body temperature Heart rate Oxygen saturation Oxygen saturation in Arterial blood by Pulse oximetry Pain severity - 0-10 verbal numeric rating [Score] - Reported Systolic blood pressure Diastolic blood pressure Provider Name and Address Organization Details Last Updated DateTime 3 04289.4 7 g 28.7 kg/m2 177.8 cm 97.1 [degF] 67 /min 97 % 97 % 0 148 mm[Hg] 85 mm[Hg] Payton Schmidt MA [facility] [employer] [facility] 3 08:13:28 Date Recorded Body height Body mass index (BMI) Body weight Body temperature Heart rate Oxygen saturation Oxygen saturation in Arterial blood by Pulse oximetry Systolic blood pressure Diastolic blood pressure Provider Name and Address Organization Details Last Updated DateTime 3 177.8 cm 27.4 kg/m2 27251.1 4 g 98.4 [degF] 71 /min 100 % 100 % 140 mm[Hg] 80 mm[Hg] Gunjan Akers LPN [facility] [employer] [facility] 3 08:07:43 Date Recorded Body height Body mass index (BMI) Body weight Body temperature Heart rate Oxygen saturation Oxygen saturation in Arterial blood by Pulse oximetry Systolic blood pressure Diastolic blood pressure Provider Name and Address Organization Details Last Updated DateTime 4 177.8 cm 28.1 kg/m2 87448.1 g 98 [degF] 89 /min 98 % 98 % 122 mm[Hg] 72 mm[Hg] Gunjan Akers LPN [facility] [employer] [facility] 4 08:06:12 Date Recorded Body height Body mass index (BMI) Body weight Body temperature Heart rate Oxygen saturation Oxygen saturation in Arterial blood by Pulse oximetry Systolic blood pressure Diastolic blood pressure Provider Name and Address Organization Details Last Updated DateTime 4 177.8 cm 25.5 kg/m2 44719.4 4 g 97.7 [degF] 102 /min 100 % 100 % 120 mm[Hg] 74 mm[Hg] Shivani Sanchez RN [facility] [employer] [facility] 4 08:05:28 Date Recorded Body height Body mass index (BMI) Body weight Body temperature Oxygen saturation Oxygen saturation in Arterial blood by Pulse oximetry Heart rate Systolic blood pressure Diastolic blood pressure Provider Name and Address Organization Details Last Updated DateTime 4 177.8 cm 23.5 kg/m2 25186.1 5 g 95.6 [degF] 100 % 100 % 97 /min 136 mm[Hg] 78 mm[Hg] Shivani Sanchez RN [facility] [employer] 09:57:59 Social History Question Answer Notes LastModified by Organizat ion Details LastModified Time Tobacco Smoking Status Never Smoker LAMONT Burt, [employer] 08/06/2023 08:17:16 Do You Have An Advance Directive? No Information not available 08/06/2023 What Is Your Level Of Alcohol Consumption? None Information not available 08/06/2023 Is Blood Transfusion Acceptable In An Emergency? Yes Information not available 08/06/2023 What Is Your Level Of Caffeine Consumption? Occasional Information not available 08/06/2023 In The 14 Days Before Symptom Onset, Have You Had Close Contact With A Laboratory-confir med COVID-19 While That Case Was Ill? No Information not available 08/06/2023 In The 14 Days Before Symptom Onset, Have You Had Close Contact With A Person Who Is Under Investigation For COVID-19 While That Person Was Ill? No Information not available 08/06/2023 Are You Currently Employed? Yes Information not available 08/06/2023 What Type Of Diet Are You Following? REGULAR Information not available 08/06/2023 What Is The Highest Grade Or Level Of School You Have Completed Or The Highest Degree You Have Received? 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 No Information no t available 08/06/2023 What Is The Fluoride Status Of Your Home? Fluoridated Information not available 08/06/2023 Are There Any Guns Present In Your Home? No Information not available 08/06/2023 Do You Use Insect Repellent Routinely? Yes Information not available 08/06/2023 Where Do You Live? SingleLevelHouse Information not available 08/06/2023 Do You Have A Medical Power Of Heel Former? No Information not available 08/06/2023 Do You Have Any Pets? Yes 1 Dog Information not available 08/06/2023 What Is Your Relationship Status? Single Information not available 08/06/2023 Do You Use Your Seat Belt Or Car Seat Routinely? Yes Information not available 08/06/2023 Are You Sexually Active? No Information not available 08/06/2023 Do You Have Smoke And Carbon Monoxide Detectors In Your Home? Yes Information not available 08/06/2023 Are You Passively Exposed To Smoke? No Information no t available 08/06/2023 Are There Any Smokers In Your House? No Information not available 08/06/2023 Do You Participate In Social Media? Yes Information not available 08/06/2023 Do You Feel Stressed (tense, Restless, Nervous, Or Anxious, Or Unable To Sleep At Night)? [id number] Information not available 08/06/2023 Do You Use Any Illicit Or Recreational Drugs? No Information not available 08/06/2023 Do You Use Sunscreen Routinely? Yes Information not available 08/06/2023 Has Tobacco Cessation Counseling Been Provided? No Information not available 08/06/2023 Have You Recently Traveled Abroad? No Information not available 08/06/2023 Are You Currently In School? No Information not available 08/06/2023 Do You Have Any Dietary Restrictions? No Information not available 08/06/2023 Do You Or Have You Ever Used Any Other Forms Of Tobacco Or Nicotine? No Information not available 08/06/2023 Sex: Unknown Functional Status Question Answer Note LastModified by Organizat ion Details LastModified Time What is your exercise level? Occasional Information not available 08/06/2023 Mental Status None recorded. Family History Relationship Description Onset Age of this Age Resolved Age Notes LastModified by Organization Details LastModified Time Father No current problems or disability Not available 08/06 08:15:56 Mother No current problems or disability Not available 08/06 08:15:56 Medical History No medical history recorded. Past Encounters Encounter ID Performer Location Encounter Start Date Encounter Closed Date Diagnosis/Indication Diagnosis SNOMED-CT Code Diagnosis ICD10 Code Diagnosis Note [id number] TRESA Juarez [facility] Primary [facility] [address] [place] [address] 08/06/2023 07:58:51 08/06/2023 09:05:52 Swelling of bilateral lower limbs 851557399 M79.89 Dealing with this issue for just over a yearJust started being more of a problem a month agoWorsens when up on feet for long periods of time, gets better with rest/eleva tionexam appears to show some PVDstarted wearing compressio n socks a month ago, describes proper use-some improvemen tdiscussed salt intake, use of pillows for increased elevation Adult heal th examination 825888000 Z00.00 Encouraged fresh fruits and veggiesInc rease daily water intake-dri nks only Dr. Reinoso, no water-educ ated on limiting simple sugarEncou rage 30 mins of daily exerciseCo lonoscopy- ordered, hx of colon resection d/t diverticul itis Cobalamin deficiency 190 882387 E53.8 Vitamin D deficiency 347 65463 E55.9 [id number] TRESA Juarez [facility] Primary Care [address] [address] 09/07/2023 07:59:10 09/07/2023 08:24:11 Type 2 diabetes mellitus without complication 297489789 E11.9 -A1c 9.2 10-2-23-9l b weight loss since last visit-c/o diarrhea with metformin, also forgets to take it at times-he is agreeable to try a different formulatio n, will trial 500 mg ER tabs-he is thinking about looking into nutrisyste m diabetic-h e walks for exercise-h e is interested in trying a weekly injection- will trial trulicity 0.75mg-f/u in 1 month [id number] TRESA Juarez [facility] Primary Care [address] [address] 11/09/2023 07:57:43 11/09/2023 08:22:52 Type 2 diabetes mellitus without complication 234226076 E11.9 -8lb weight gain since last visit-next A1c due Dec-diarrh ea has improved with metformin- doing well with trulicity, no ASE-has not been doing as much exercise recently-h e is wanting to try Jaridance- Trial jardiance 10mg-incre asing trulicity to 1.5mg-f/u in 1 month [id number] MAGNUS JuarezP[facility] Primary Care [facility] [address] [facility] [address] [place] [address] 12/12/2023 07:58:20 12/12/2023 08:21:35 Type 2 diabetes mellitus without complication 029933249 E11.9 -took 1 month of Jardiance 10mg-farshad nues metformin ER daily and trulicity- 18lb weight loss since last visit (1 month)-mike etite has remained normal, has had a lot of loose stools-blo od sugars have been running from 90s-160s-c ontinues to drink 2-3 Dr[address] Hollis/michele y-4-5 bottles water/day- continuing trulicity 0.75mg (insurance didn't approve increase)- A1c obtained-f /u in 3 months [id number] TRESA Juarez [facility] Primary Care [facility] [address] [facility] [address] [place] [address] 03/12/2024 09:47:56 03/12/2024 10:17:20 Transition of care 8495999472 105 Z75.8 d/c on 02/26 Kidney stone 28314992 N2 0.0 -pt was recently in the hospital for this issue, was having sob and flank pain-stent was placed while in the hospital-f /u with urology on 03/07 and stent was removed-no further symptoms Hypokalemia 56593185 E87 .6 -noted at 2.4 while in the hospital-h e left AMA, started vomiting the next day and promtly f/u up for admission again-pota ssium replacemen t given-adde d banana/yog urt to diet-start ing daily potassium supp Health Concerns Section Related Observation LastModified by Organization Detai ls LastModified Time None Recorded Concern Status LastModified by Organization Details LastModified Time None Recorded Advance Directives Directive N: Payers Encounter Date Sequence Insurance Name Policy Number Policy Reyes Covered Member ID Reyes Member ID Guarantor Name 08/06/2023 1 [facility] Santosh Oconnell Mumper [id number] Santosh Oconnell Mumper 09/07/2023 1 [facility] [place] Santosh Oconnell Mumper [id number] Santosh Oconnell Mumper 11/09/2023 1 [facility] Santosh Oconnell Mumper [id number] 1 Santosh Oconnell Mumper 12/12/2023 1 [facility] Santosh Oconnell Mumper [id number] 1 Santosh Oconnell Mumper 03/12/2024 1 [facility] Santosh Oconnell Mumper [id number] Santosh Oconnell Mumper Notes Date Note Type Note Provider Name and Address Organization Details Recorded Time 08/06/2023 text/html Pt is here to establish care. Concerned for swelling of lower limbs TRESA Juarez [address], [place] [address], [place], [address], [facility] [employer] 08/06/2023 09:09:36 09/07/2023 text/html Pt is here to f/u on diabetes ERICK Juarez-Manuel [address], [place] [address], [place], [address], [employer] [facility] [employer] 09/07/2023 08:28:51 11/09/2023 text/html Pt is here to f/u on diabetes ERICK Juarez-Manuel [address], [place] [address], [place], [address], [facility] [employer] 11/09/2023 08:17:49 12/12/2023 text/html Pt is here for 1 month f/u TRESA Juarez [address], [address] [place], [address], [facility] [employer] [facility] 12/12/2023 08:49:30 03/12/2024 text/html pt is here for hospital f/u Jose Copeland, [employer] [address], [place] [address], [place], [address], [facility] [employer] [facility] 03/12/2024 10:19:56
--- OUTSIDE RECORDS SUMMARY | 2025-01-10 15:32 | XMS_ITS | Patient Health Summary ---
Author Organization [facility] [employer] Address [address] [place] [address] Care Team Providers Care Data Analysis Intern Name Role Phone Debbie Titus MD Primary Care Provider [phone] Note from [facility],non-owned Affiliates and Associated Physician Practices is amultiple site organization consisting of ambulatory clinics and hospital sitesin [place], [place], [place] and [place]. This disclosure is being madepursuant to the Care Everywhere program and may not contain all information available regarding this patient. Last updated 18.[facility] Allergies * Penicillins(Rash) -Medium Criticality Medications * Be aware that medications may not be up to date on this document. Alwaysverify current medications with the patient. * cyanocobalamin (Vitamin B-12) 100 MCG tablet Take 1 (one) tablet by mouth once daily * ferrous sulfate 325 (65 FE) MG tablet Take 1 (one) tablet by mouth 2 times daily with morning and evening meal * qbnxcjefbpv-eviyldvkauwpe-usmoblbly (Biktarvy) 50-200-25 MG Take 1 (one) tablet by mouth once daily * potassium chloride ER (Klor-Con M) 20 MEQ tablet Take 1 (one) tablet by mouth 2 times daily * qulwulivgou-uhdthaipauubj-jktrzmmxi (Biktarvy) 50-200-25 MG(Started 04/11/2024) Take 1 (one) tablet by mouth once daily for 30 days 11 refills by 04/11/2025 * atorvastatin (Lipitor) 20 MG tablet(Started 06/24/2024) Take 1 (one) tablet by mouth once daily 2 refills by 06/24/2025 * Trulicity 1.5 MG/0.5ML injection(Started 12/29/2024) ADMINISTER 1.5 MG UNDER THE SKIN EVERY 7 DAYS Ended Medications* Trulicity 1.5 MG/0.5ML injection(Started 11/28/2024) (Discontinued) ADMINISTER 1.5 MG UNDER THE SKIN EVERY 7 DAYS Active Problems Problem Noted Date Diagnosed Date Type 2 diabetes mellitus, wi thout long-term current use of insulin 05/06/2024 HIV (human immunodeficiency virus infection) 12/2023 Immunizations * FLU VACCINE TRI IIV3 SPLIT IM (FLUVIRIN)(Given 09/23/2013) * HEP A/HEP B(Given 06/16/2024, 05/12/2024) * INFLUENZA VACCINE, TRIV. (FLUZONE; FLULAVAL; FLUARIX; AFLURIA TRIVALENT; 6MO+), 0.5 ML (IIV3)(Given 08/11/2024) * MENINGOCOCCAL MCV4O(Given 08/11/2024, 05/12/2024) * PNEUMOCOCCAL PCV20 CONJ VAC IM(Given 05/12/2024) * TDAP (7yrs+)(Given 06/16/2024) Social History Tobacco Use Types Packs/Day Years Used Date Smoking Tobacco: Never Smokeless Tobacco: Never Tobacco Cessation:Counseling Given: Not Answered Alcohol Use Standard Drinks/Week Comments Yes 0 (1 standard drink = 0.6 oz pur e alcohol) rare PHQ-2 Answer Date Recorded Patient Health Questionnaire-2 Score 0 10/29/2024 Sex and Gender Information Value Date Recorded Sex Assigned at Not on file Gender Identity Not on file Sexual Orientation Not on file Last Filed Vital Signs Vital Sign Reading Time Taken Comments Blood Pressure 136/84 10/30/2024 8:06 AM LITHOGRAPH PRINTER Pulse 93 10/30/2024 8:06 AM LITHOGRAPH PRINTER Temperature 36.8 C (98.2 F) 05/13/2024 9:56 AM CDT Respiratory Rate 20 05/13/2024 9:56 AM CDT Oxygen Saturation 98% 10/30/2024 8:06 AM LITHOGRAPH PRINTER Inhaled Oxygen Concentration - - Weight 92.1 kg (203 lb) 10/30/2024 8:06 AM LITHOGRAPH PRINTER Height 177.8 cm (5' 10 ) 10/30/2024 8:06 AM LITHOGRAPH PRINTER Body Mass Index 29.13 10/30/2024 8:06 AM LITHOGRAPH PRINTER Procedures * HEMOGLOBIN A1C - POINT OF CARE (IP)(Performed 10/30/2024) Performed for Type 2 diabetes mellitus without complication, without long-term current use of insulin (HCC) * HIV-1 RNA PCR QUANTITATIVE(Performed 08/11/2024) Performed for Human immunodeficiency virus (HIV) disease (HCC), Type 2 diabetes mellitus without complication, without long-term current use of insulin (HCC), Need for prophylactic vaccination against single bacterial disease * HEPATITIS B SURFACE ANTIBODY QUANT(Performed 08/11/2024) Performed for Human immunodeficiency virus (HIV) disease (HCC), Type 2 diabetes mellitus without complication, without long-term current use of insulin (HCC), Need for prophylactic vaccination against single bacterial disease * HEPATITIS A ANTIBODY(Performed 08/11/2024) Performed for Human immunodeficiency virus (HIV) disease (HCC), Type 2 diabetes mellitus without complication, without long-term current use of insulin (HCC), Need for prophylactic vaccination against single bacterial disease * COMPREHENSIVE METABOLIC PANEL(Performed 08/11/2024) Performed for Human immunodeficiency virus (HIV) disease (HCC), Type 2 diabetes mellitus without complication, without long-term current use of insulin (HCC), Need for prophylactic vaccination against single bacterial disease * CBC W AUTO DIFFERENTIAL(Performed 08/11/2024) Performed for Human immunodeficiency virus (HIV) disease (HCC), Type 2 diabetes mellitus without complication, without long-term current use of insulin (HCC), Need for prophylactic vaccination against single bacterial disease * CD4 (ABSOLUTE T4)(Performed 08/11/2024) Performed for Human immunodeficiency virus (HIV) disease (HCC), Type 2 diabetes mellitus without complication, without long-term current use of insulin (HCC), Need for prophylactic vaccination against single bacterial disease * HEMOGLOBIN A1C(Performed 06/16/2024) Performed for Asymptomatic HIV infection, with no history of HIV-related illness (HCC) * COMPREHENSIVE METABOLIC PANEL(Performed 06/16/2024) Performed for Asymptomatic HIV infection, with no history of HIV-related illness (HCC) * CBC W AUTO DIFFERENTIAL(Performed 06/16/2024) Performed for Asymptomatic HIV infection, with no history of HIV-related illness ([facility]) * HIV-1 RNA PCR QUANTITATIVE(Performed 06/16/2024) Performed for Asymptomatic HIV infection, with no history of HIV-related illness ([facility]) * CD4 (ABSOLUTE T4)(Performed 06/16/2024) Performed for Human immunodeficiency virus (HIV) disease ([facility]), Need for prophylactic vaccination with tetanus-diphtheria (Td), Need for prophylactic vaccination and inoculation against viral hepatitis * COMPREHENSIVE METABOLIC PANEL(Performed 05/12/2024) Performed for Human immunodeficiency virus (HIV) disease ([facility]), Need for prophylactic vaccination against single bacterial disease, Need for prophylactic vaccination against Streptococcus pneumoniae (pneumococcus), Need for prophylactic vaccination and inoculation against viral hepatitis * CBC W AUTO DIFFERENTIAL(Performed 05/12/2024) Performed for Human immunodeficiency virus (HIV) disease ([facility]), Need for prophylactic vaccination against single bacterial disease, Need for prophylactic vaccination against Streptococcus pneumoniae (pneumococcus), Need for prophylactic vaccination and inoculation against viral hepatitis * HIV-1 RNA PCR QUANTITATIVE(Performed 05/12/2024) Performed for Human immunodeficiency virus (HIV) disease ([facility]), Need for prophylactic vaccination against single bacterial disease, Need for prophylactic vaccination against Streptococcus pneumoniae (pneumococcus), Need for prophylactic vaccination and inoculation against viral hepatitis * CD4 (ABSOLUTE T4)(Performed 05/12/2024) Performed for Human immunodeficiency virus (HIV) disease ([facility]), Need for prophylactic vaccination against single bacterial disease, Need for prophylactic vaccination against Streptococcus pneumoniae (pneumococcus), Need for prophylactic vaccination and inoculation against viral hepatitis * MICROALB/CREAT RATIO URINE RANDOM PANEL(Performed 05/06/2024) Performed for Infected sebaceous cyst of skin * PROC OPH DIAB BILAT RET SCRN WCOMP INTERP(Performed 05/06/2024) Performed for Type 2 diabetes mellitus without complication, without long-term current use of insulin ([facility]) * CULTURE WOUND+GRAM STAIN(Performed 05/06/2024) Performed for Infected sebaceous cyst of skin * MRI BRAIN WWO CONTRAST(Performed 04/29/2024) Performed for Dizziness * PET CT WHOLE BODY(Performed 04/29/2024) Performed for Lymphadenopathy * GLUCOSE SCREEN - POCT (IP) SLH(Performed 04/29/2024) * URINALYSIS NO MICROSCOPIC NO CULTURE(Performed 04/11/2024) Performed for Human immunodeficiency virus (HIV) disease ([facility]) * HLA-B 5701 GENOTYPING(Performed 04/11/2024) Performed for Human immunodeficiency virus (HIV) disease ([facility]) * QUANTIFERON-TB GOLD PLUS 4-TUBE(Performed 04/11/2024) Performed for Human immunodeficiency virus (HIV) disease (HCC) * HEPATITIS C ANTIBODY REFLX QUANT & GENOTYPE(Performed 04/11/2024) Performed for Human immunodeficiency virus (HIV) disease (HCC) * CHLAMYDIA + GC AMPLIFIED PROBE(Performed 04/11/2024) Performed for Human immunodeficiency virus (HIV) disease (HCC) * CHLAMYDIA + GC AMPLIFIED PROBE(Performed 04/11/2024) Performed for Human immunodeficiency virus (HIV) disease (HCC) * CHLAMYDIA + GC AMPLIFIED PROBE(Performed 04/11/2024) Performed for Human immunodeficiency virus (HIV) disease (HCC) * HEMOGLOBIN A1C(Performed 04/11/2024) Performed for Human immunodeficiency virus (HIV) disease (HCC) * CBC W AUTO DIFFERENTIAL(Performed 04/11/2024) Performed for Human immunodeficiency virus (HIV) disease (HCC) * LIPID PROFILE(Performed 04/11/2024) Performed for Human immunodeficiency virus (HIV) disease (HCC) * SYPHILIS ANTIBODY CASCADING REFLEX(Performed 04/11/2024) Performed for Human immunodeficiency virus (HIV) disease (HCC) * CD4 (ABSOLUTE T4)(Performed 04/11/2024) Performed for Human immunodeficiency virus (HIV) disease (HCC) * HEPATITIS B SURFACE ANTIBODY QUANT(Performed 04/11/2024) Performed for Human immunodeficiency virus (HIV) disease (HCC) * HEPATITIS A ANTIBODY(Performed 04/11/2024) Performed for Human immunodeficiency virus (HIV) disease (HCC) * TOXOPLASMA GONDII ANTIBODY IGG(Performed 04/11/2024) Performed for Human immunodeficiency virus (HIV) disease (HCC) * HIV-1 RNA PCR QUANTITATIVE(Performed 04/11/2024) Performed for Human immunodeficiency virus (HIV) disease (HCC) * HAPTOGLOBIN(Performed 04/08/2024) Performed for Pancytopenia (HCC) * TSH REFLEX FREE T4(Performed 04/08/2024) Performed for Pancytopenia (HCC) * CBC W AUTO DIFFERENTIAL(Performed 04/08/2024) Performed for Pancytopenia (HCC) * COMPREHENSIVE METABOLIC PANEL(Performed 04/08/2024) Performed for Pancytopenia (HCC) * RETIC COUNT(Performed 04/08/2024) Performed for Pancytopenia (HCC) * ZINC BLOOD(Performed 04/08/2024) Performed for Pancytopenia (HCC) * COPPER BLOOD(Performed 04/08/2024) Performed for Pancytopenia (HCC) * LDH BLOOD(Performed 04/08/2024) Performed for Pancytopenia (HCC) * VITAMIN B12(Performed 04/08/2024) Performed for Pancytopenia (HCC) * FOLATE(Performed 04/08/2024) Performed for Pancytopenia (HCC) * FERRITIN(Performed 04/08/2024) Performed for Pancytopenia (HCC) * IRON + TRANSFERRIN PANEL(Performed 04/08/2024) Performed for Pancytopenia (HCC) Results * (ABNORMAL) HEMOGLOBIN A1C - POINT OF CARE (IP) (10/30/2024 8:23 AM LITHOGRAPH PRINTER) [facility] Hemoglobin A1c POCT 7.9(A) 3.4 - 6.1 % [address] QC Verified Yes Yes [address] Blood BLOOD SPECIMEN / Unknown 10/30/2024 8:23 AM LITHOGRAPH PRINTER Debbie Titus MD LAB - POINT OF CARE ORDERABLES [address], [place] [address], [facility] [phone] * HIV-1 RNA PCR QUANTITATIVE (08/11/2024 1:01 PM CDT) Only the most recent of4 resultswithin the time period is included. [facility] HIV-1 RNA Quantitative PCR 30 copies/mL 08/15/2024 9:13 AM CDT [facility] ([facility]) Comment: The reportable range for this assay is 20 to 10,000,000 copies HIV-1 RNA/mL. log10 HIV-1 RNA Copies/mL 1.477 pza62cuft/ mL 08/15/2024 9:13 AM CDT [facility] ([facility]) Blood BLOOD SPECIMEN / Unknown 08/11/2024 1:01 PM CDT 08/11/2024 1:37 PM CDT Narrative [facility] ([facility]) - 08/15/2024 9:13 AM CDT Performed at: [address] [place] [id number] Graduate Research Assistant: Gabby Gee MD, Phone: [phone] Edu Dawn MD LAB - SEROLOGY ORDER [facility] [facility] ([facility]) [address] [place] [address] * HEPATITIS B SURFACE ANTIBODY QUANT (08/11/2024 1:00 PM CDT) Only the most recent of2 resultswithin the time period is included. Hepatitis B Virus Surface Antibody 4.40 IU/L 08/12/2024 11:25 AM CDT [facility] [employer] ([facility]) Comment: The anti-HBs is less than 10 IU/L and is therefore negative. There is no evidence of recovery from hepatitis B infection or evidence of antibody response to HBV vaccination. An anti-HBs result greater than or equal to 10 IU/L indicates immunity. Reference Interval: anti-HBs 9.99 IU/L or less ....... Negative 10.00 IU/L or greater ... Positive Results greater than 1,000.00 IU/L are reported as greater than 1,000.00 IU/L. This assay should not be used for blood donor screening, associated re-entry protocols, or for screening Human Cell, Tissues and Cellular and Tissue-Based Products (HCT/P). Performed By: [employer] [address] [place] [address] [employer] Supervisor Maintenance: Per Meza MD, PhD CLIA Number: [id number] Blood BLOOD SPECIMEN / Unknown 08/11/2024 1:00 PM CDT 08/11/2024 1:37 PM CDT Edu Dawn MD LAB - SEROLOGY ORDER CARLEEN [id number] ([facility]) [address] * CD4 (ABSOLUTE T4) (08/11/2024 1:00 PM CDT) Only the most recent of4 resultswithin the time period is included. Reason for test Human immunodeficiency virus (HIV) disease (HCC) 042 Type 2 diabetes mellitus without complication, without long-term current use of insulin (HCC) Need for prophylactic vaccination against single bacterial disease V03.9 08/12/2024 8:29 AM [facility] Client Specimen ID # [id number] 08/12/2024 8:29 AM [facility] Number of Markers 2 08/12/2024 8:29 AM [facility] Flow Cytometry Results Differential Result Comment WBC Count /uL 6,900 % Lymphocytes 26 Lymphocyte Count u/L 1,794 Cell Region A: Lymphocytes Surface Marker Results % Absolute Count (cells/uL) CD4 13 233 08/12/2024 8:29 AM [facility] Flow Cytometry Interpretation Testing is technical only and does not require an interpretation of results. 08/12/2024 8:29 AM [facility] Electronically signed by Nathalie Malloy for Nirav Boykin MLT([facility]) on 08/12/2024 at 8:29 AM Reference Range Adult Normal Reference Range Adult (> 18 years) CD3 54-84 % CD4 33-63 % CD8 12-39 % CD19 5-19 % CD56 6-26 % CD4+CD45RA+ 30-50 % CD4+CD45RO+ 17-42 % CD19+CD27+ 7-48 % CD19+CD27+IgD+ 7-29 % CD19+CD27+IgD- 3-23 % CD19+YM95-IgU+ 29-93 % % 08/12/2024 8:29 AM [facility] Disclaimer Test performed at [facility], [address] [place] [address], [id number]. This test was developed and its performance characteristics determined by the Flow Cytometry Laboratory. It has not been cleared by the [place] Food and Drug Administration (FDA). The FDA has determined that such clearance or approval is not necessary. This test is used for clinical purposes. It should not be regarded as investigational or for research. This laboratory is regulated under the Clinical Laboratory Improvement Amendments of 1998 (CLIA) as a qualified to perform high complexity clinical testing. By law [place], CD4 lymphocyte counts on patients with HIV infection must be reported by the physician to the [facility] Health authority. 08/12/2024 8:29 AM CDT [facility] Embedded Images 8:29 AM CDT [facility] Blood BLOOD SPECIMEN / Unknown 08/11/2024 1:00 PM CDT 08/11/2024 1:37 PM CDT Edu Dawn MD LAB - HEMATOLOGY ORD ERABLES [facility] [address] [id number] [phone] * CBC WITH DIFFERENTIAL (08/11/2024 1:00 PM CDT) Only the most recent of5 resultswithin the time period is included. WBC 6.9 4.0 - 10.7 x10E9/L 08/11/2024 1:55 PM [facility] RBC Count 5.07 4.30 - 5.80 x10E12/L 08/11/2024 1:55 PM [facility] Hemoglobin 15.5 13.3 - 17.5 g/dL 08/11/2024 1:55 PM [facility] Hematocrit 46.4 38.7 - 51.1 % 08/11/2024 1:55 PM [facility] MCV 91.5 80.0 - 98.0 fL 08/11/2024 1:55 PM [facility] MCH 30.6 26.7 - 33.6 pg 08/11/2024 1:55 PM [facility] MCHC 33.4 31.7 - 36.3 g/dL 08/11/2024 1:55 PM [facility] RDW-CV 12.9 11.3 - 14.8 % 08/11/2024 1:55 PM [facility] Platelet Count 217 150 - 420 x10E9/L 08/11/2024 1:55 PM [facility] MPV 10.4 7.8 - 11.4 fL 08/11/2024 1:55 PM [facility] Neutrophil % 59.6 41.0 - 74.0 % 08/11/2024 1:55 PM [facility] Lymphocyte % 26.4 17.0 - 47.0 % 08/11/2024 1:55 PM [facility] Monocyte % 9.9 3.0 - 11.0 % 08/11/2024 1:55 PM [facility] Eosinophil % 2.9 0.0 - 7.0 % 08/11/2024 1:55 PM [facility] Basophil % 0.6 0.0 - 1.6 % 08/11/2024 1:55 PM [facility] Immature Granulocytes % 0.6 0.0 - 1.0 % 08/11/2024 1:55 PM [facility] Neutrophil Absolute 4.09 1.60 - 7.50 x10E9/L 08/11/2024 1:55 PM [facility] Lymphocyte Absolute 1.81 1.00 - 4.40 x10E9/L 08/11/2024 1:55 PM [facility] Monocyte Absolute 0.68 0.15 - 1.00 x10E9/L 08/11/2024 1:55 PM [facility] Eosinophil Absolute 0.20 0.00 - 0.60 x10E9/L 08/11/2024 1:55 PM [facility] Basophil Absolute 0.04 0.00 - 0.13 x10E9/L 08/11/2024 1:55 PM [facility] Blood BLOOD SPECIMEN / Unknown 08/11/2024 1:00 PM CDT 08/11/2024 1:37 PM CDT Edu Dawn MD LAB - HEMATOLOGY ORD ERABLES [facility] [address] [place] [address], [facility] [phone] * (ABNORMAL) COMPREHENSIVE METABOLIC PANEL (08/11/2024 1:00 PM CDT) Only the most recent of4 resultswithin the time period is included. BUN 13 7 - 26 mg/dL 08/11/2024 2:14 PM T [facility] Creatinine 0.73 0.71 - 1.16 mg/dL 08/11/2024 2:14 PM [facility] Sodium 140 136 - 145 mmol/L 08/11/2024 2:14 PM [facility] Potassium 3.7 3.5 - 4.5 mmol/L 08/11/2024 2:14 PM [facility] Chloride 104 98 - 107 mmol/L 08/11/2024 2:14 PM [facility] CO2 26 22 - 29 mmol/L 08/11/2024 2:14 PM [facility] Glucose 189(H) 70 - 115 mg/dL 08/11/2024 2:14 PM [facility] Calcium 9.5 8.4 - 10.2 mg/dL 08/11/2024 2:14 PM [facility] Protein Total 7.9 6.0 - 8.3 g/dL 08/11/2024 2:14 PM [facility] Albumin 4.0 3.4 - 5.0 g/dL 08/11/2024 2:14 PM [facility] Bilirubin Total 1.6(H) 0.2 - 1.2 mg/dL 08/11/2024 2:14 PM [facility] Alkaline Phosphatase 109 40 - 150 U/L 08/11/2024 2:14 PM [facility] ALT 27 5 - 55 U/L 08/11/2024 2:14 PM [facility] AST 22 5 - 34 U/L 08/11/2024 2:14 PM [facility] Anion Gap 10 6 - 16 08/11/2024 2:14 PM [facility] BUN/Creatinine Ratio 18 7 - 23 08/11/2024 2:14 PM [facility] Osmolality Calculated 295 275 - 295 mOsm/kg 08/11/2024 2:14 PM [facility] Albumin/Globulin Ratio 1.0(L) 1.1 - 2.3 08/11/2024 2:14 PM [facility] eGFR by CKD-EPI >90 >=90 mL/min/1.7 3 m2 08/11/2024 2:14 PM [facility] Blood BLOOD SPECIMEN / Unknown 08/11/2024 1:00 PM CDT 08/11/2024 1:37 PM CDT Edu Dawn MD LAB - CHEMISTRY DOMINICK LEE [facility] [address] [place] [address], [facility] [phone] * HEPATITIS A ANTIBODY (08/11/2024 1:00 PM CDT) Only the most recent of2 resultswithin the time period is included. Hepatitis A Virus Antibody Total Negative Negative 08/12/2024 12:09 PM CDT [employer] ([facility]) Comment: Performed By: [facility] [address] [place] [address] [employer] Supervisor Maintenance: Per Meza MD, PhD CLIA Number: [id number] Blood BLOOD SPECIMEN / Unknown 08/11/2024 1:00 PM CDT 08/11/2024 1:37 PM CDT Edu Dawn MD LAB - CHEMISTRY DOMINICK LEE Performing Organization Address City/[facility] Co de Phone Number [id number] ([facility]) [address] [place] [address] * (ABNORMAL) HEMOGLOBIN A1C (06/16/2024 2:33 PM CDT) Only the most recent of2 resultswithin the time period is included. Hemoglobin A1c 9.1(H) <=5.6 % 06/17/2024 9:03 AM CDT [facility] Estimated Average Glucose 214 mg/dL 06/17/2024 9:03 AM CDT [facility] Comment: HbA1c Interpretation: Normal : < 5.7% Pre-diabetes: 5.7-6.4% Diabetes: Equal to or greater than 6.5% Test results diagnostic of diabetes should be repeated for confirmation. Treatment target values recommended by ADA and other clinical organizations should be used to evaluate metabolic control in patients. Reference: [place] Diabetes [employer], Standards of Care in Diabetes -2020 In patients 70 years and older consider HbA1c target range of 7.0-7.5% (Reference: Merida A, et niall. JAMDA. 2012) The [employer] assay for the measurement of HbA1c is a National Glycohemoglobin Standardization Program (NGSP) certified method. Blood BLOOD SPECIMEN / Unknown Venipuncture / Unknown 06/16/2024 2:33 PM CDT 06/16/2024 5:41 PM CDT Edu Dawn MD LAB - CHEMISTRY DOMINICK LEE Performing Organization Address [facility] Co de Phone Number [address] [address], [facility] [phone] * MICROALB/CREAT RATIO URINE RANDOM PANEL (05/06/2024 12:49 PM CDT) Albumin Random Urine 8.0 Not Established ug/mL 05/06/2024 1:54 PM CDT [facility] Creatinine Urine 73.35 Not Established mg/dL 05/06/2024 1:54 PM CDT [facility] Urine Albumin/Creati nine Ratio 11 <30 mg/g 05/06/2024 1:54 PM CDT [facility] Urine URINE SPECIMEN OBTAINED BY CLEAN CATCH PROCEDURE / Unknown Collection / Unknown 05/06/2024 12:49 PM CDT 05/06/2024 1:25 PM CDT Debbie Titus MD LAB - URINE CHEMISTR Y ORDERABLES Performing Organization Address [facility] Co de Phone Number [address] [address], [facility] [phone] * (ABNORMAL) Diabetes Retinopathy Screening (05/06/2024 11:03 AM CDT) IDX DR SCREEN Diabetic Retinopathy Detected: ETDRS level 35 or higher and/or Diabetic Macular Edema (A) [facility] Comment: Next Steps: Refer to government services professional IDx Submission ID: [id number] Results were produced by a system that provides an artificial intelligence (AI) interpretation A positive result indicates a high risk of diabetic retinopathy with a severity of ETDRS level 35 or higher and/or macular edema. IDx-DR diabetic retinopathy exam does not replace a comprehensive eye exam. 05/06/2024 11:0 3 AM CDT Debbie Titus MD PROCEDURE/MINOR SURG ICAL ORDERABLES [facility] * (ABNORMAL) CULTURE WOUND+GRAM STAIN (05/06/2024 10:43 AM CDT) Culture Heavy Staphylococcus aureus methicillin-resista nt (MRSA)(A) PARAM 05/09/2024 6:26 AM CDT [facility] Comment:Staphylococcus aureu s methicillin-resistant (MRSA) detected by penicillin binding protein immunoassay. Contact precautions required. Conventional antibiotic susceptibility testing to follow. Gram Stain Rare Polymorphonuclear cells 05/09/2024 6:26 AM CDT [facility] Gram Stain Light Gram-positive cocci 05/09/2024 6:26 AM CDT [facility] Microbiology SEBACEOUS CYST / Unknown Collection / Unknown 05/06/2024 10:43 AM CDT 05/06/2024 5:08 PM CDT Narrative [facility] - 05/09/2024 6:26 AM CDT Methicillin-resistant Staphylococci (MRSA) are resistant to all currently available beta-lactam antibiotics with the exception of the newer cephalosporins with anti-MRSA activity. Contact precautions required. Organism Antibiotic Method Susceptibility Staphylococcus aureus methicillin-resistant (MRSA) Clindamycin PARAM 0.25 ug/mL: Susceptible Staphylococcus aureus methicillin-resistant (MRSA) Doxycycline PARAM <=0.5 ug/mL: Susceptible Staphylococcus aureus methicillin-resistant (MRSA) Inducible Clindamycin Resistance PARAM NEG ug/mL: Neg Staphylococcus aureus methicillin-resistant (MRSA) Oxacillin PARAM >=4 ug/mL: Resistant Staphylococcus aureus methicillin-resistant (MRSA) Trimethoprim-sulfamethox azole PARAM >=320 ug/mL: Resistant Staphylococcus aureus methicillin-resistant (MRSA) Vancomycin PARAM <=0.5 ug/mL: Susceptible Debbie Titus MD LAB - MICROBIOLOGY O RDERABLES [facility] [address] [place] [address], [facility] [phone] * MRI BRAIN WWO CONTRAST (04/29/2024 12:32 PM CDT) Anatomical Region Laterality Modality Head Magnetic Resonan ce 05/11/2024 10:4 9 AM CDT Impressions 05/11/2024 10:55 AM CDT IMPRESSION: 1. No evidence of intracranial malignancy. > Interpreting Provider: Cj Gao MD on 05/11/2024 10:55 AM Narrative 05/11/2024 10:55 AM CDT PROCEDURE: MRI BRAIN WWO CONTRAST, DATE/TIME OF EXAM: 04/29/2024 12:32 PM, LOCATION [facility] INDICATION: R42: Dizziness ADDITIONAL CLINICAL INFORMATION: Ordering Provider Reason For Exam: New lymphadenopathy, r/o brain involvement by a malignant hem process Technologist Note: Additional: TECHNIQUE: MRI of the brain was performed prior to and following the uneventful administration of intravenous contrast according to standard protocol. CONTRAST: GADOBUTROL 1 MMOL/ML IV SSM SO:7 mL COMPARISON: No prior study is available for comparison at the time of this dictation. FINDINGS: No evidence of acute cerebral infarction is seen. No evidence of acute or chronic hemorrhage is identified. The ventricles are of normal size, shape, and morphology. No mass effect or midline shift is seen. Mild subcortical FLAIR hyperintensities in the left frontal lobe is a nonspecific finding that can be seen in patient with chronic migraine headaches and other chronic conditions such as hypertension. 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 The corpus callosum and sella appear normal. The posterior fossa, brainstem, and craniocervical junction appear normal. The visualized portions of the orbits, paranasal sinuses, and mastoids appear normal. Normal flow voids are demonstrated in the carotid arteries and basilar artery. The calvarium and visualized cervical spine appear normal. Procedure Note Cj Gao MD - 05/11/2024 PROCEDURE: MRI BRAIN WWO CONTRAST, DATE/TIME OF EXAM: 04/29/2024 12:32PM, LOCATION [facility] INDICATION: R42: Dizziness ADDITIONAL CLINICAL INFORMATION: Ordering Provider Reason For Exam: New lymphadenopathy, r/o brain involvement by a malignant hem process Technologist Note: Additional: TECHNIQUE: MRI of the brain was performed prior to and following the uneventful administration of intravenous contrast according to standard protocol. CONTRAST: GADOBUTROL 1 MMOL/ML IV SSM SO:7 mL COMPARISON: No prior study is available for comparison at the time ofthis dictation. FINDINGS: No evidence of acute cerebral infarction is seen. No evidence of acuteor chronic hemorrhage is identified. The ventricles are of normal size,shape, and morphology. No mass effect or midline shift is seen. Mildsubcortical FLAIR hyperintensities in the left frontal lobe is a nonspecific finding that can be seen in patient with chronic migraine headaches and other chronic conditions such as hypertension. Other than a smalldevelopmental venous anomaly in the superior aspect of the cerebellum, no otherabnormal enhancement in the brain parenchyma or the meninges. The corpus callosum and sella appear normal. The posterior fossa, brainstem, andcraniocervical junction appear normal. The visualized portions of the orbits, paranasal sinuses, and mastoids appear normal. Normal flow voids are demonstrated in the carotidarteries and basilar artery. The calvarium and visualized cervical spine appear normal. IMPRESSION: 1. No evidence of intracranial malignancy. > Interpreting Provider: Cj Gao MD on 05/11/2024 10:55 AM Aldo Kohli MD MR ORDERABLES * PET CT WHOLE BODY (04/29/2024 10:32 AM CDT) Anatomical Region Laterality Modality Positron Emissio n Tomography (PET) 04/29/2024 10:0 3 AM CDT Impressions 04/29/2024 1:43 PM CDT IMPRESSION: 1. Soft tissue thickening involving the proximal lateral soft tissues of the right lower extremity containing small foci of gas with increased FDG uptake concerning for underlying infectious process. Recommend clinical correlation. 2. FDG avid bilateral inguinal and pelvic lymph nodes which may be reactive secondary to the soft tissue process. Recommend close attention on follow-up imaging. 3. Mildly FDG avid subcentimeter cervical and axillary lymph nodes are nonspecific and may be reactive. Report dictated by Brian Tejeda MD(financial institution vice president).. > Dictated by Brian Tejeda MD (Central Sterilization Technician) 04/29/2024 10:03 AM I, Erin Fermin, DO have personally reviewed and interpreted this examination/study. > Interpreting Provider: Erin Christensen DO on 04/29/2024 1:43 PM Narrative 04/29/2024 1:43 PM CDT PROCEDURE: PET CT WHOLE BODY, DATE/TIME OF EXAM: 04/29/2024 10:32 AM, LOCATION [facility] INDICATION: R59.1: Lymphadenopathy COMPARISON: No prior PET-CT is available for comparison. Referring Provider: ALDO KOHLI HISTORY: A 48 years Male patient history of HIV with abdominopelvic lymphadenopathy seen on CT performed at outside hospital.. Evaluate for initial treatment strategy. TECHNIQUE: 6.6 mCi of F-18 FDG by IV in the right antecubital fossa. PET/CT image acquisition from top of the head to feet after approximately 60 minutes post-injection with the CT being low-dose, non-contrast. No separate report for the CT. CT was used for attenuation correction and anatomic localization. Blood glucose level at the time of injection was 230 mg/dl. Patient's BMI is 24.2 kg/m . FINDINGS: For reference, SUVmax of liver is 3.2. Head and neck: Normal FDG uptake in the brain parenchyma. No abnormal radiotracer focus is present. Mildly FDG avid subcentimeter bilateral cervical lymph nodes, SUV max up to 2.2. Chest: Dependent subsegmental atelectatic changes are noted in the lungs. No hypermetabolic pulmonary nodule. No evidence of pneumothorax or pleural effusion. No abnormal FDG avid mediastinal nodes. Benign appearing bilateral axillary nodes. Small calcified granulomas noted in the right lower lobe. Mildly FDG avid subcentimeter axillary lymph nodes with SUV max of 1.6. Abdomen and pelvis: Mildly FDG avid bilateral inguinal, iliac and external iliac chain, perirectal lymph nodes. The largest measures up to 1.6 cm short axis in the right inguinal region with SUV max of 3.0. Bilateral nephrolithiasis without evidence of hydronephrosis. A small calcification is noted within the pancreas. Otherwise, the liver, kidneys, adrenal glands, spleen and pancreas are grossly unremarkable. Normal FDG activity is seen throughout the bowel. Fat-containing umbilical hernia. Musculoskeletal: There is soft tissue thickening involving the proximal right lower extremity lateral to the right gluteus medius muscle containing tiny foci of gas with SUV max of 6.4. No abnormal FDG avid lytic or sclerotic lesions are identified. No abnormal radiotracer focus is present. Degenerative changes are noted in the spine. Procedure Note Erin Christensen, DO - 04/29/2024 PROCEDURE: PET CT WHOLE BODY, DATE/TIME OF EXAM: 04/29/2024 10:32 AM, LOCATION [facility] INDICATION: R59.1: Lymphadenopathy COMPARISON: No prior PET-CT is available for comparison. Referring Provider: ALDO KOHLI HISTORY: A 48 years Male patient history of HIV with abdominopelvic lymphadenopathy seen on CT performed at outside hospital.. Evaluate for initial treatment strategy. TECHNIQUE: 6.6 mCi of F-18 FDG by IV in the right antecubital fossa. PET/CT image acquisition from top of the head to feet after approximately 60 minutes post-injection with the CT being low-dose, non-contrast. No separate report for the CT. CT was used for attenuation correction and anatomic localization. Blood glucose level at the time of injection yaa157 mg/dl. Patient's BMI is 24.2 kg/m . FINDINGS: For reference, SUVmax of liver is 3.2. Head and neck: Normal FDG uptake in the brain parenchyma. No abnormal radiotracer focus is present. Mildly FDG avid subcentimeter bilateral cervical lymph nodes, SUV max up to 2.2. Chest: Dependent subsegmental atelectatic changes are noted in thelungs. No hypermetabolic pulmonary nodule. No evidence of pneumothorax orpleural effusion. No abnormal FDG avid mediastinal nodes. Benign appearing bilateral axillary nodes. Small calcified granulomas noted in the right lower lobe. Mildly FDG avid subcentimeter axillary lymph nodes with SUVmax of 1.6. Abdomen and pelvis: Mildly FDG avid bilateral inguinal, iliac and external iliac chain, perirectal lymph nodes. The largest measures up to 1.6 cm short axis inthe right inguinal region with SUV max of 3.0. Bilateral nephrolithiasis without evidence of hydronephrosis. A small calcification is noted within the pancreas. Otherwise, the liver,kidneys, adrenal glands, spleen and pancreas are grossly unremarkable. Normal FDG activity is seen throughout the bowel. Fat-containing umbilical hernia. Musculoskeletal: There is soft tissue thickening involving the proximal right lower extremity lateral to the right gluteus medius muscle containing tinyfoci of gas with SUV max of 6.4. No abnormal FDG avid lytic or sclerotic lesions are identified. Noabnormal radiotracer focus is present. Degenerative changes are noted in thespine. IMPRESSION: 1. Soft tissue thickening involving the proximal lateral soft tissues of the right lower extremity containing small foci of gas with increasedFDG uptake concerning for underlying infectious process. Recommend clinical correlation. 2. FDG avid bilateral inguinal and pelvic lymph nodes which may bereactive secondary to the soft tissue process. Recommend close attention on follow-up imaging. 3. Mildly FDG avid subcentimeter cervical and axillary lymph nodes are nonspecific and may be reactive. Report dictated by Brian Tejeda MD(financial institution vice president).. > Dictated by Brian Tejeda MD (Central Sterilization Technician) 04/29/2024 10:03 AM IErin DO have personally reviewed and interpreted this examination/study. > Interpreting Provider: Erin Christensen DO on 04/29/2024 1:43 PM Aldo Kohli MD NM ORDERABLES * (ABNORMAL) GLUCOSE SCREEN - POCT (IP) [facility] (04/29/2024 8:58 AM CDT) Pathologist [facility] [place] Glucose WB/POC 230(A) 70 - 115 mg/dL [facility] POCT TESTING Blood BLOOD SPECIMEN / Unknown 04/29/2024 8:58 AM CDT Aldo Kohli MD LAB - POINT OF C ARE ORDERABLES [facility] POCT TESTING [address] [place] [address], [facility] [phone] * HEPATITIS C ANTIBODY REFLX QUANT & GENOTYPE (04/11/2024 12:13 PM CDT) Pathologist [facility] [place] Hepatitis C Antibody Non-react nohemy Non-reac tive 04/11/2024 5:40 PM CDT [facility] Comment:Hepatitis C Antibody screen indicates no serologic evidence of past or current infection with Hepatitis C Virus. Patients with unexplained liver disease who are immunocompromised or suspected of having acute Hepatitis C infection may benefit from Nucleic Acid Test (YOHANNES) for Hepatitis C Viral RNA to confirm Hepatitis C status. Blood BLOOD SPECIMEN / Unknown Lab Venipuncture / Unknown 04/11/2024 12:13 PM CDT 04/11/2024 4:14 PM CDT Edu Dawn MD LAB - CHEMISTRY DOMINICK LEE [facility] [id number] [place] [address], [facility] [phone] * CHLAMYDIA + GC AMPLIFIED PROBE (04/11/2024 12:13 PM CDT) Only the most recent of3 resultswithin the time period is included. [facility] Chlamydia Amplified Probe Negative Negative 04/12/2024 12:15 AM CDT [facility] GC Amplified Probe Negative Negative 04/12/2024 12:15 AM CDT [facility] Microbiology URINE / Unknown Collection / Unknown 04/11/2024 12:13 PM CDT 04/11/2024 4:14 PM CDT Narrative [facility] - 04/12/2024 12:15 AM CDT Results based on detection/no detection of ribosomal RNA by amplified method. Edu Dawn MD LAB - MICROBIOLOGY O RDERABLES [facility] [address] [place] [address], [facility] [phone] * QUANTIFERON-TB GOLD PLUS 4-TUBE (04/11/2024 12:13 PM CDT) [facility] QuantiFERON Mitogen Minus NIL 8.16 IU/mL 04/16/2024 2:13 PM CDT [facility] ([facility]) QuantiFERON Nil Value 1.84 IU/mL 04/16/2024 2:13 PM CDT [facility] ([facility]) QuantiFERON Plus TB1 Minus NIL -0.46 <=0.34 IU/mL 04/16/2024 2:13 PM CDT [facility] ([facility]) QuantiFERON Plus TB2 Minus NIL -0.49 <=0.34 IU/mL 04/16/2024 2:13 PM CDT [facility] [employer] ([facility]) QuantiFERON-TB Gold Plus Negative Negative 04/16/2024 2:13 PM CDT [facility] [employer] ([facility]) Comment: INTERPRETIVE INFORMATION:Quantiferon TB Gold Plus Interferon gamma release is measured for specimens from each of the four collection tubes. A qualitative result (Negative, Positive, or Indeterminate) is based on interpretation of the four values: NIL, MITOGEN minus NIL (MITOGEN-NIL), TB1 minus NIL (TB1-NIL), and TB2 minus NIL (TB2-NIL). The NIL value represents nonspecific reactivity produced by the patient specimen. The MITOGEN-NIL value serves as the positive control for the patient specimen, demonstrating successful lymphocyte activity. The TB1-NIL tube specifically detects CD4+ lymphocyte reactivity, specifically stimulated by the TB1 antigens. The TB2-NIL tube detects both CD4+ and CD8+ lymphocyte reactivity, stimulated by TB2 antigens. An overall Negative result does not completely rule out TB infection. A false-positive result in the absence of other clinical evidence of TB infection is not uncommon. Refer to: Updated Guidelines for Using Interferon Gamma Release Assays to Detect Mycobacterium tuberculosis Infection -- [place], 2010 (http://www.cdc.gov/mmwr/preview/mmwrhtml/ai6721g5.htm), for more information concerning test performance in low-prevalence populations and use in occupational screening. Performed By: [facility] [address] [place] [address] Steam Fitter Supervisor Maintenance: Per Meza MD, PhD CLIA Number: [id number] Blood BLOOD SPECIMEN / Unknown Lab Venipuncture / Unknown 04/11/2024 12:13 PM CDT 04/11/2024 4:14 PM CDT Edu Dawn MD LAB - CHEMISTRY DOMINICK LEE [facility] Organization Address City/State/ZIP Co de Phone Number [facility] [employer] [facility] [address]) [address] [place] [address] * HLA-B 5701 GENOTYPING (04/11/2024 12:13 PM CDT) [facility] Signature HLA B 5701 Typing Negative 024 3:22 PM CDT [employer] ([facility]) Comment: Indication for testing: Considering or recently prescribed abacavir. Interpretation: The HLA-B*57:01 allele was not detected; therefore, this patient is not predicted to be at increased risk for abacavir hypersensitivity. Recommendations: This negative result does not replace the need for therapeutic drug or other clinical monitoring. Abacavir therapy should be discontinued in all individuals with clinically-suspected abacavir hypersensitivity reaction regardless of HLA-B*5701 status. This result has been reviewed and approved by Rossy Covarrubias M.D. BACKGROUND INFORMATION: HLA-B*57:01 for Abacavir Sensitivity CHARACTERISTICS: Abacavir sulfate is a nucleoside reverse transcriptase inhibitor (NRTI) used for the treatment of HIV. Abacavir hypersensitivity reaction is characterized by fever, rash, malaise, gastrointestinal and respiratory symptoms. Symptoms typically appear within the first six weeks of treatment, worsen with each subsequent abacavir dose, and may be severe or fatal. INHERTANCE: Autosomal dominant. CAUSE: Abacavir hypersensitivity is strongly associated with the HLA-B*57:01 allele. The mechanism is related to drug-specific activation of T lymphocyte killer cells. ALLELE TESTED: Prescense or abscence of the HLA-B*57:01 allele. ALLELE FREQUENCY: Southwest 11 percent, Other 0-6.7 percent, 6.8 percent, [place] 2.6 percent, 2.5 percent, [place] 2.2 percent, 1 percent. CLINICAL SENSITIVITY: 100 percent for immunologically confirmed hypersensitivity reaction. METHODOLOGY: Polymerase Chain Reaction and Fluorescence Monitoring. ANALYTICAL SENSITIVITY AND SPECIFICITY: Greater than 99 percent. LIMITATIONS: Alleles other than HLA-B*57:01 will not be evaluated. This test does not distinguish between heterozygote and homozygote carriers. Diagnostic errors can occur due to rare sequence variations. Risk of therapeutic failure or adverse reactions with abacavir may be affected by genetic and non-genetic factors that are not detected by this test. This result does not replace the need for therapeutic drug or clinical monitoring This test was developed and its performance characteristics determined by [facility]. It has not been cleared or approved by the [place] Food and Drug Administration. This test was performed in a CLIA certified laboratory and is intended for clinical purposes. Counseling and informed consent are recommended for genetic testing. Consent forms are available online. Performed By: [facility] [address] [place] [id number] [employer] Supervisor Maintenance: Per Meza MD, PhD CLIA Number: [id number] Specimen [id number] Whole Blood 04/19 3:22 PM CDT [facility]) Blood BLOOD SPECIMEN / Unknown Lab Venipuncture / Unknown 04/11/2024 12:13 PM CDT 04/11/2024 4:14 PM CDT Edu Dawn MD LAB - CHEMISTRY DOMINICK LEE [facility]) [address] * URINALYSIS NO MICROSCOPIC NO CULTURE (04/11/2024 12:13 PM CDT) Color UA Yellow Straw, Yellow 04/11/2024 4:46 PM CDT [facility] Clarity UA Clear Clear 04/11/2024 4:46 PM T [facility] Specific Hale UA 1.018 1.005 - 1.030 04/11/2024 4:46 PM T [facility] pH UA 6.0 5.0 - 8.0 pH 04/11/2024 4:46 PM T [facility] Protein UA Negative Negative 04/11/2024 4:46 PM T [facility] Glucose UA Negative Negative 04/11/2024 4:46 PM T [facility] Ketone UA Negative Negative 04/11/2024 4:46 PM T [facility] Bilirubin UA Negative Negative 04/11/2024 4:46 PM T [facility] Blood UA Negative Negative 04/11/2024 4:46 PM T [facility] Nitrite UA Negative Negative 04/11/2024 4:46 PM T [facility] Leukocyte Esterase Negative Negative 04/11/2024 4:46 PM [facility] Urobilinogen UA Negative Negative mg/dL 04/11/2024 4:46 PM T [facility] Urine URINE SPECIMEN OBTAINED BY CLEAN CATCH PROCEDURE / Unknown Collection / Unknown 04/11/2024 12:13 PM CDT 04/11/2024 4:14 PM CDT Narrative [facility] - 04/11/2024 4:46 PM CDT Edu Dawn MD LAB - URINALYSIS ORD ERABLES [facility] [address] [place] [address], [place] [phone] * SYPHILIS ANTIBODY CASCADING REFLEX (04/11/2024 12:12 PM CDT) Treponema pallidum Antibody Non-react nohemy Non-react nohemy 04/11/2024 5:40 PM CDT [facility] Comment: No Laboratory evidence of syphilis infection. Note: Circulating antibodies may be low or undetectable in early infection. If recent exposure is suspected, re-draw sample in 2-4 weeks and repeat testing. Blood BLOOD SPECIMEN / Unknown Lab Venipuncture / Unknown 04/11/2024 12:12 PM CDT 04/11/2024 4:14 PM CDT Edu Dawn MD LAB - SEROLOGY ORDER CARLEEN Performing Organization Address City/[facility]/ZIP Co de Phone Number [facility] [address] [place] [address], [facility] [phone] * (ABNORMAL) LIPID PROFILE (04/11/2024 12:12 PM CDT) Cholesterol Total 98 <200 mg/dL 04/11/2024 5:11 PM CDT [facility] HDL 32(L) >40 mg/dL 04/11/2024 5:11 PM CDT [facility] Comment: ATP III Classification of HDL Cholesterol: <40 mg/dL: Considered a major risk factor. >60 mg/dL: Considered a negative risk factor. LDL Calculated 47 <100 mg/dL 04/11/2024 5:11 PM T [facility] Comment: ATP III Classification of LDL Cholesterol: <100 mg/dL: Optimal 100 - 129 mg/dL: Near Optimal/Above Optimal 130 - 159 mg/dL: Borderline High 160 - 189 mg/dL: High >190 mg/dL: Very High Triglycerides 94 <150 mg/dL 04/11/2024 5:11 PM CDT [facility] Comment: ATP III Classification of Triglycerides: <150 mg/dL: Normal 150 - 199 mg/dL: Borderline High 200 - 400 mg/dL: High >500 mg/dL: Very High Blood BLOOD SPECIMEN / Unknown Lab Venipuncture / Unknown 04/11/2024 12:12 PM CDT 04/11/2024 4:14 PM CDT Edu Dawn MD LAB - CHEMISTRY DOMINICK LEE Performing Organization Address City/[facility]/ZIP Co de Phone Number [facility] [address] [place] [phone], [facility] [phone] * TOXOPLASMA GONDII ANTIBODY IGG (04/11/2024 12:00 PM CDT) [facility] Toxoplasma Antibody IgG <3.0 <=8.8 IU/mL 04/15/2024 12:52 PM CDT [id number] ([facility]) Comment: INTERPRETIVE INFORMATION: Toxoplasma Ab, IgG 7.1 IU/mL or less....... Not Detected 7.2-8.7 IU/mL .......... Indeterminate-Repeat testing in 10-14 days may be helpful. 8.8 IU/mL or greater ... Detected The best evidence for current infection is a significant change on two appropriately timed specimens, where both tests are done in the same laboratory at the same time. This test should not be used for blood donor screening, associated re-entry protocols, or for screening Human Cell, Tissues and Cellular and Tissue-Based Products (HCT/P). The magnitude of the measured result is not indicative of the amount of antibody present. Performed By: [facility] [address] [place] [id number] [employer] Supervisor Maintenance: Per Meza MD, PhD CLIA Number: [id number] Blood BLOOD SPECIMEN / Unknown Lab Venipuncture / Unknown 04/11/2024 12:00 PM CDT 04/11/2024 4:14 PM CDT Edu Dawn MD LAB - CHEMISTRY DOMINICK LEE [employer] [facility] [address]) [address] [place] [id number] * TSH REFLEX FREE T4 (04/08/2024 9:36 AM CDT) TSH 1.527 0.350 - 4.940 uIU/mL 04/08/2024 10:53 AM CDT [facility] Blood BLOOD SPECIMEN / Unknown Lab Venipuncture / Unknown 04/08/2024 9:36 AM CDT 04/08/2024 9:45 AM CDT Aldo Kohli MD LAB - CHEMISTRY ORDERABLES [facility] [address] [place] [address], [facility] [phone] * (ABNORMAL) ZINC BLOOD (04/08/2024 9:36 AM CDT) Zinc 55.1(L) 60.0 - 120.0 ug/dL 04/09/2024 11:59 PM CDT [id number] ([facility]) Comment: INTERPRETIVE INFORMATION: Zinc, Serum or Plasma Elevated results may be due to skin or collection-related contamination, including the use of a noncertified metal-free collection/transport tube. If contamination concerns exist due to elevated levels of serum/plasma zinc, confirmation with a second specimen collected in a certified metal-free tube is recommended. Circulating zinc concentrations are dependent on albumin status and are depressed with malnutrition. Zinc may also be lowered with infection, inflammation, stress, oral contraceptives, and . Zinc may be elevated with zinc supplementation or fasting. Elevated zinc concentrations may interfere with copper absorption. This test was developed and its performance characteristics determined by [facility]. It has not been cleared or approved by the [place] Food and Drug Administration. This test was performed in a CLIA certified laboratory and is intended for clinical purposes. Performed By: [facility] [address] [place] [address] Steam Fitter Supervisor Maintenance: Per Meza MD, PhD CLIA Number: [id number] Blood BLOOD SPECIMEN / Unknown Lab Venipuncture / Unknown 04/08/2024 9:36 AM CDT 04/08/2024 9:43 AM CDT Aldo Kohli MD LAB - CHEMISTRY ORDERABLES Performing Organization Address [facility] de Phone Number [facility] [employer] ([facility]) [address] * COPPER BLOOD (04/08/2024 9:36 AM CDT) Copper 133.6 70.0 - 140.0 ug/dL 04/09/2024 11:59 PM CDT [facility] [employer] ([facility]) Comment: INTERPRETIVE INFORMATION: Copper, Serum or Plasma Elevated results may be due to skin or collection-related contamination, including the use of a noncertified metal-free collection/transport tube. If contamination concerns exist due to elevated levels of serum/plasma copper, confirmation with a second specimen collected in a certified metal-free tube is recommended. Serum copper may be elevated with infection, inflammation, stress, and copper supplementation. In females, elevated copper may also be caused by oral contraceptives and (concentrations may be elevated up to 3 times normal during the third trimester). This test was developed and its performance characteristics determined by [facility]. It has not been cleared or approved by the [place] Food and Drug Administration. This test was performed in a CLIA certified laboratory and is intended for clinical purposes. Performed By: [facility] [address] [place] [address] Steam Fitter Supervisor Maintenance: Per Meza MD, PhD CLIA Number: [id number] Blood BLOOD SPECIMEN / Unknown Lab Venipuncture / Unknown 04/08/2024 9:36 AM CDT 04/08/2024 9:43 AM CDT Aldo Kohli MD LAB - CHEMISTRY ORDERABLES Performing Organization Address [facility] Co de Phone Number [facility] [employer] ([facility]) [address] * RETIC COUNT (04/08/2024 9:36 AM CDT) Reticulocyte Percent 1.49 0.50 - 2.40 % 04/08/2024 9:50 AM CDT [facility] Reticulocyte Absolute 0.0659 0.0200 - 0.1100 x10E6/uL 04/08/2024 9:50 AM CDT [facility] Ret-HE 34.3 29.0 - 37.9 pg 04/08/2024 9:50 AM CDT [facility] Immature Reticulocyte Fraction 7.0 1.8 - 15.2 % 04/08/2024 9:50 AM CDT [facility] Blood BLOOD SPECIMEN / Unknown Lab Venipuncture / Unknown 04/08/2024 9:36 AM CDT 04/08/2024 9:45 AM CDT Aldo Kohli MD LAB - HEMATOLOGY ORDERABLES [address] [address], [facility] [phone] * LDH BLOOD (04/08/2024 9:36 AM CDT) LDH Total 218 125 - 243 Units/L 04/08/2024 10:20 AM CDT [facility] Blood BLOOD SPECIMEN / Unknown Lab Venipuncture / Unknown 04/08/2024 9:36 AM CDT 04/08/2024 9:45 AM CDT Aldo Kohli MD LAB - CHEMISTRY ORDERABLES Performing Organization Address City/[facility]/ZIP Co de Phone Number [address] [address], [place] [phone] * FOLATE (04/08/2024 9:36 AM CDT) Folate 9.4 7.0 - 31.4 ng/mL 04/08/2024 10:53 AM CDT [facility] Blood BLOOD SPECIMEN / Unknown Lab Venipuncture / Unknown 04/08/2024 9:36 AM CDT 04/08/2024 9:45 AM CDT Aldo Kohli MD LAB - CHEMISTRY ORDERABLES [address] [place] [address], [facility] [phone] * VITAMIN B12 (04/08/2024 9:36 AM CDT) Vitamin B12 778 213 - 816 pg/mL 04/08/2024 10:53 AM CDT [facility] Blood BLOOD SPECIMEN / Unknown Lab Venipuncture / Unknown 04/08/2024 9:36 AM CDT 04/08/2024 9:45 AM CDT Aldo Kohli MD LAB - CHEMISTRY ORDERABLES [address] [address], [facility] [phone] * (ABNORMAL) IRON + TRANSFERRIN PANEL (04/08/2024 9:36 AM CDT) Iron 55 50 - 175 ug/dL 04/08/2024 10:31 AM CDT [facility] Transferrin 290 174 - 382 mg/dL 04/08/2024 10:31 AM CDT [facility] Transferrin Saturation % 15(L) 16 - 50 % 04/08/2024 10:31 AM CDT [facility] TIBC Calculated 363 240 - 450 ug/dL 04/08/2024 10:31 AM CDT [facility] Blood BLOOD SPECIMEN / Unknown Lab Venipuncture / Unknown 04/08/2024 9:36 AM CDT 04/08/2024 9:42 AM CDT Aldo Kohli MD LAB - CHEMISTRY ORDERABLES [address] [address], [place] [phone] * HAPTOGLOBIN (04/08/2024 9:36 AM CDT) Haptoglobin 210 14 - 258 mg/dL 04/08/2024 10:23 AM CDT [facility] Blood BLOOD SPECIMEN / Unknown Lab Venipuncture / Unknown 04/08/2024 9:36 AM CDT 04/08/2024 9:42 AM CDT Aldo Kohli MD LAB - CHEMISTRY ORDERABLES Performing Organization Address City/[facility]/ZIP Co de Phone Number [facility] [address] [place] [address], [facility] [phone] * (ABNORMAL) FERRITIN (04/08/2024 9:36 AM CDT) Ferritin 503(H) 22 - 275 ng/mL 04/08/2024 10:35 AM CDT [facility] Blood BLOOD SPECIMEN / Unknown Lab Venipuncture / Unknown 04/08/2024 9:36 AM CDT 04/08/2024 9:42 AM CDT Aldo Kohli MD LAB - CHEMISTRY ORDERABLES Performing Organization Address [facility] Co de Phone Number [address] [address], [facility] [phone] Care Teams Data Analysis Intern Relationship Specialty Start Date End Date Debbie Titus MD [address] [place] [phone] PCP - General Family Medicine 03/20/24
--- OUTSIDE RECORDS SUMMARY | 2025-01-10 15:32 | XMS_ITS | Referral Summary ---
Author Organization [facility] Address [address] [facility] [place] [address] Care Team Providers Care Process Inspector Name Role Phone Debbie Titus MD Primary Care Provider [phone] Source Comments [facility],non-owned Affiliates and Associated Physician Practices is amultiple site organization consisting of ambulatory clinics and hospital sitesin [place], [place], [place] and [place]. This disclosure is being madepursuant to the Care Everywhere program and may not contain all information available regarding this patient. Last updated 18.[facility] Encounters Date Type Department Care Team Description 12/28/2024 Refill [facility] - Family Medicine [address] [place] [phone] Debbie Titus MD Refill Request 12/02/2024 Travel 11/28/2024 Refill [facility] - Family Medicine [address] [place] [phone] Debbie Titus MD Refill Request 10/30/2024 Travel 10/30/2024 8:00 AM CASTING CLEANER Office Visit [facility] - Family Medicine [address] [place] [phone] Debbie Titus MD Type 2 diabetes mellitus without complication, without long-term current use of insulin (HCC) (Primary Dx) 10/24/2024 Refill [facility] - Family Medicine [address] [place] [phone] Debbie Titus MD Refill Request from Last 3 Months Allergies Active Allergy Reactions Criticality Noted Date Comments Penicillins Rash Medium 04/08/2024 Medications * Be aware that medications may not be up to date on this document. Alwaysverify current medications with the patient. Medication Sig Dispensed Refills Start Date End Date Status cyanocobalamin (Vitamin B-12) 100 MCG tablet Take 1 (one) tablet by mouth once daily Active ferrous sulfate 325 (65 FE) MG tablet Take 1 (one) tablet by mouth 2 times daily with morning and evening meal Active bictegravir-emtr icitabine-tenofo vir (Biktarvy) 50-200-25 MG Take 1 (one) tablet by mouth once daily Active potassium chloride ER (Klor-Con M) 20 MEQ tablet Take 1 (one) tablet by mouth 2 times daily Active bictegravir-emtr icitabine-tenofo vir (Biktarvy) 50-200-25 MG Take 1 (one) tablet by mouth once daily for 30 days 30 tablet 11 04/11/2024 Active atorvastatin (Lipitor) 20 MG tablet Take 1 (one) tablet by mouth once daily 90 tablet 2 06/24/2024 Active Trulicity 1.5 MG/0.5ML injectionIndicat ions:Type 2 diabetes mellitus without complication, without long-term current use of insulin (HCC) ADMINISTER 1.5 MG UNDER THE SKIN EVERY 7 DAYS 2 mL 12/29/2024 Active Trulicity 1.5 MG/0.5ML injectionIndicat ions:Type 2 diabetes mellitus without complication, without long-term current use of insulin (HCC) ADMINISTER 1.5 MG UNDER THE SKIN EVERY 7 DAYS 2 mL 11/28/2024 5 Discontinued Active Problems Problem Noted Date Diagnosed Date Type 2 diabetes mellitus, wi thout long-term current use of insulin 05/06/2024 HIV (human immunodeficiency virus infection) 12/2023 Immunizations Name Administration Dates Next Due FLU VACCINE TRI IIV3 SPLIT IM (FLUVIRIN) 013 HEP A/HEP B 06/16/2024,05/12/2024 INFLUENZA VACCINE, TRIV. (FL UZONE; FLULAVAL; FLUARIX; AFLURIA TRIVALENT; 6MO+), 0.5 ML (IIV3) 08/11/2024 MENINGOCOCCAL MCV4O 08/11/2024,05/12/2024 PNEUMOCOCCAL PCV20 CONJ VAC IM 05/12/2024 TDAP (7yrs+) 06/16/2024 Social History Tobacco Use Types Packs/Day Years [...] Comments Blood Pressure 136/84 10/30/2024 8:06 AM CASTING CLEANER Pulse 93 10/30/2024 8:06 AM CASTING CLEANER Temperature 36.8 C (98.2 F) 05/13/2024 9:56 AM CDT Respiratory Rate 20 05/13/2024 9:56 AM CDT Oxygen Saturation 98% 10/30/2024 8:06 AM CASTING CLEANER Inhaled Oxygen Concentration - - Weight 92.1 kg (203 lb) 10/30/2024 8:06 AM CASTING CLEANER Height 177.8 cm (5' 10 ) 10/30/2024 8:06 AM CASTING CLEANER Body Mass Index 29.13 10/30/2024 8:06 AM CASTING CLEANER Plan of Treatment Upcoming Encounters Date Type Department Care Team (Late st Contact Info) Description 02/06/2025 10:00 AM CDT Office Visit [facility] - Infectious Disease [address] [place] [phone] Edu Dawn MD [address] [place] [address] [place] [address] 08/03/2025 10:00 AM CDT Office Visit [facility] - Ophthalmology [address] [place] [phone] Arpit Machado OD [address] [place] [phone] Procedures Procedure Name Priority Date/Time Associated Diagnosis Comments HEMOGLOBIN A1C - POINT OF CARE (IP) Routine 10/30/2024 8:23 AM CASTING CLEANER Type 2 diabetes mellitus without complication, without long-term current use of insulin (HCC) COMPREHENSIVE METABOLIC PANEL Routine 08/11/2024 1:00 PM CDT Human immunodeficiency virus (HIV) disease (HCC) Type 2 diabetes mellitus without complication, without long-term current use of insulin (HCC) Need for prophylactic vaccination against single bacterial disease MICROALB/CREAT RATIO URINE RANDOM PANEL Routine 05/06/2024 12:49 PM CDT Infected sebaceous cyst of skin PROC OPH DIAB BILAT RET SCRN WCOMP INTERP Routine 05/06/2024 11:03 AM CDT Type 2 diabetes mellitus without complication, without long-term current use of insulin (HCC) HEPATITIS C ANTIBODY REFLX QUANT & GENOTYPE Routine 04/11/2024 12:13 PM CDT Human immunodeficiency virus (HIV) disease (HCC) from Last 3 Months or Most Recently Relevant to Health Maintenance Results * (ABNORMAL) HEMOGLOBIN A1C - POINT OF CARE (IP) (10/30/2024 8:23 AM CASTING CLEANER) Pathologist [facility] Hemoglobin A1c POCT 7.9(A) 3.4 - 6.1 % [address] QC Verified Yes Yes [address] Blood BLOOD SPECIMEN / Unknown 10/30/2024 8:23 AM CASTING CLEANER Debbie Titus MD LAB - POINT OF CARE ORDERABLES [address], [place] [address], [facility] [phone] * (ABNORMAL) COMPREHENSIVE METABOLIC PANEL (08/11/2024 1:00 PM CDT) Pathologist [facility] BUN 13 7 - 26 mg/dL 08/11/2024 2:14 PM [facility] Creatinine 0.73 0.71 - 1.16 mg/dL 08/11/2024 2:14 PM [facility] Sodium 140 136 - 145 mmol/L 08/11/2024 2:14 PM [facility] Potassium 3.7 3.5 - 4.5 mmol/L 08/11/2024 2:14 PM [facility] Chloride 104 98 - 107 mmol/L 08/11/2024 2:14 PM [facility] CO2 26 22 - 29 mmol/L 08/11/2024 2:14 PM [facility] Glucose 189(H) 70 - 115 mg/dL 08/11/2024 2:14 PM [facility] Calcium 9.5 8.4 - 10.2 mg/dL 08/11/2024 2:14 PM [facility] Protein Total 7.9 6.0 - 8.3 g/dL 08/11/2024 2:14 PM [facility] Albumin 4.0 3.4 - 5.0 g/dL 08/11/2024 2:14 PM [facility] Bilirubin Total 1.6(H) 0.2 - 1.2 mg/dL 08/11/2024 2:14 PM [facility] Alkaline Phosphatase 109 40 - 150 U/L 08/11/2024 2:14 PM [facility] ALT 27 5 - 55 U/L 08/11/2024 2:14 PM [facility] AST 22 5 - 34 U/L 08/11/2024 2:14 PM [facility] Anion Gap 10 6 - 16 08/11/2024 2:14 PM [facility] BUN/Creatinine Ratio 18 7 - 23 08/11/2024 2:14 PM [facility] Osmolality Calculated 295 275 - 295 mOsm/kg 08/11/2024 2:14 PM [facility] Albumin/Globulin Ratio 1.0(L) 1.1 - 2.3 08/11/2024 2:14 PM [facility] eGFR by CKD-EPI >90 >=90 mL/min/1.7 3 m2 08/11/2024 2:14 PM CDT [facility] Blood BLOOD SPECIMEN / Unknown 08/11/2024 1:00 PM CDT 08/11/2024 1:37 PM CDT Edu Dawn MD LAB - CHEMISTRY [place] Performing Organization Address [facility] Co de Phone Number [address] [address], [facility] [phone] * MICROALB/CREAT RATIO URINE RANDOM PANEL (05/06/2024 12:49 PM CDT) Albumin Random Urine 8.0 Not Established ug/mL 05/06/2024 1:54 PM CDT [facility] Creatinine Urine 73.35 Not Established mg/dL 05/06/2024 1:54 PM CDT [facility] Urine Albumin/Creati nine Ratio 11 <30 mg/g 05/06/2024 1:54 PM CDT [facility] Urine URINE SPECIMEN OBTAINED BY CLEAN CATCH PROCEDURE / Unknown Collection / Unknown 05/06/2024 12:49 PM CDT 05/06/2024 1:25 PM CDT Debbie Titus MD LAB - URINE CHEMISTR Y ORDERABLES Performing Organization Address [facility] Co de Phone Number [address] [address], [facility] [phone] * (ABNORMAL) Diabetes Retinopathy Screening (05/06/2024 11:03 AM CDT) IDX DR SCREEN Diabetic Retinopathy Detected: ETDRS level 35 or higher and/or Diabetic Macular Edema (A) [facility] Comment: Next Steps: Refer to hook and eye attacher IDx Submission ID: [id number] Results were produced by a system that provides an artificial intelligence (AI) interpretation A positive result indicates a high risk of diabetic retinopathy with a severity of ETDRS level 35 or higher and/or macular edema. IDx-DR diabetic retinopathy exam does not replace a comprehensive eye exam. 05/06/2024 11:0 3 AM CDT Debbie Titus MD PROCEDURE/MINOR SURG ICAL ORDERABLES [facility] * HEPATITIS C ANTIBODY REFLX QUANT & GENOTYPE (04/11/2024 12:13 PM CDT) Hepatitis C Antibody Non-react nohemy Non-reac tive 04/11/2024 5:40 PM CDT [facility] Comment:Hepatitis C Antibody screen [...] Dawn MD LAB - CHEMISTRY [facility] [address] [place] [address] [phone] from Last 3 Months or Most Recently Relevant to Health Maintenance Additional Health Concerns Infection Onset Date Last Indicated MRSA 05/06/2024 05/06/2024 Care Teams Process Inspector Relationship Specialty Start Date End Date Debbie Titus MD [address] [place] [address], [place] [phone] PCP - General Family Medicine 03/20/24
--- OUTSIDE RECORDS SUMMARY | 2025-01-10 15:32 | XMS_ITS | Encounter Summary ---
Author Organization [facility] Address [address] [place] [address] Care Team Providers Care Auto Wash Buffer Name Role Phone Debbie Titus MD Primary Care Provider [phone] Reason for Visit * Reason Onset Date Comments MEDICATION REFILL 08/24/2024 Encounter Details Date Type Department Care Team (Late st Contact Info) Description 08/24/2024 Refill [facility] - Family Medicine [address] [place] [phone] Debbie Titus MD [address] [place] [address] [place] [phone] MEDICATION REFILL Social History Tobacco Use Types Packs/Day Years Used Date Smoking Tobacco: Never Smokeless Tobacco: Never Alcohol Use Standard Drinks/Week Comments Yes 0 (1 standard drink = 0.6 oz pur e alcohol) rare PHQ-2 Answer Date Recorded Patient Health Questionnaire-2 Score 0 07/03/2024 Sex and Gender Information Value Date Recorded Sex Assigned at Not on file Gender Identity Not on file Sexual Orientation Not on file documented as of this encounter Plan of Treatment Upcoming Encounters Date Type Department Care Team (Late Contact Info) Description 02/06/2025 10:00 AM CDT Office Visit [facility] - Infectious Disease [address] [place] [phone] Edu Dawn MD [address] [place] [address] [place] [address] 08/03/2025 10:00 AM CDT Office Visit [facility] - Ophthalmology [address] [place] [phone] Arpit Machado OD [address] [place] [phone] documented as of this encounter Visit Diagnoses Not on filedocumented in this encounter Additional Health Concerns Infection Onset Date Last Indicated Resolved Time MRSA 05/06/2024 05/06/2024 documented as of this encounter Care Teams Auto Wash Buffer Relationship Specialty Start Date End Date Debbie Titus MD [address] [place] [address] [place] [phone] PCP - General Family Medicine 03/20/24 documented as of this encounter
--- OUTSIDE RECORDS SUMMARY | 2025-01-10 15:32 | XMS_ITS | Clinical Summary ---
Author Organization [facility] Address [address] [place] [address] Care Team Providers Care Starch Treating Assistant Name Role Phone Debbie Titus MD Primary Care Provider [phone] Source Comments [facility],non-owned Affiliates and Associated Physician Practices is amultiple site organization consisting of ambulatory clinics and hospital sitesin [place], [place], [place] and [place]. This disclosure is being madepursuant to the Care Everywhere program and may not contain all information available regarding this patient. Last updated 18.[facility] Allergies Active Allergy Reactions Criticality Noted Date [...] 05/06/2024 HIV (human immunodeficiency virus infection) 12/2023 Encounters Date Type Department Care Team Description 12/28/2024 Refill [facility] [address], [place] [address] Debbie Titus MD Refill Request 12/02/2024 Travel 11/28/2024 Refill [facility] Medicine [address] [place] [phone] Debbie Titus MD Refill Request 10/30/2024 8:00 AM WATER/WASTEWATER ENGINEER Office Visit [facility] [address] [phone] Debbie Titus MD Type 2 diabetes mellitus without complication, without long-term current use of insulin (HCC) (Primary Dx) 10/30/2024 Travel 10/24/2024 Refill [facility] [address] [phone] Debbie Titus MD Refill Request from Last 3 Months Immunizations Name Administration Dates Next Due FLU VACCINE TRI IIV3 SPLIT IM (FLUVIRIN) 013 HEP A/HEP B 06/16/2024,05/12/2024 INFLUENZA VACCINE, TRIV. (FL UZONE; FLULAVAL; FLUARIX; AFLURIA TRIVALENT; 6MO+), 0.5 ML (IIV3) 08/11/2024 MENINGOCOCCAL MCV4O 08/11/2024,05/12/2024 PNEUMOCOCCAL PCV20 CONJ VAC IM 05/12/2024 TDAP (7yrs+) 06/16/2024 Family History Medical History Relation Name Comments CAD (Coronary Artery Disease) Father [place] COPD - Chronic Obstructive Pulmonary Disease Mother Relation Name Status Comments Father Mother Social History Tobacco Use Types Packs/Day Years [...] Comments Blood Pressure 136/84 10/30/2024 8:06 AM WATER/WASTEWATER ENGINEER Pulse 93 10/30/2024 8:06 AM WATER/WASTEWATER ENGINEER Temperature 36.8 C (98.2 F) 05/13/2024 9:56 AM CDT Respiratory Rate 20 05/13/2024 9:56 AM CDT Oxygen Saturation 98% 10/30/2024 8:06 AM WATER/WASTEWATER ENGINEER Inhaled Oxygen Concentration - - Weight 92.1 kg (203 lb) 10/30/2024 8:06 AM WATER/WASTEWATER ENGINEER Height 177.8 cm (5' 10 ) 10/30/2024 8:06 AM WATER/WASTEWATER ENGINEER Body Mass Index 29.13 10/30/2024 8:06 AM WATER/WASTEWATER ENGINEER Plan of Treatment Upcoming Encounters Date Type Department Care Team (Late st Contact Info) Description 02/06/2025 10:00 AM CDT Office Visit [facility] - Infectious Disease [address] [place] [phone] Edu Dawn MD [address] [place] [address] OF [place] [address] 08/03/2025 10:00 AM CDT Office Visit [facility] - Ophthalmology [address] [place] [phone] Arpit Machado, OD [address] [place] [address] Health Maintenance Due Date Last Done Comments COLOGUARD (AGES 45-75) - COLON CA SCREENING 1974 COLON MONITORING 1974 COLONOSCOPY - COLON CA SCREENING 1974 CT COLONOGRAPHY - COLON CA SCREENING 1974 Colorectal Cancer Screening 1974 FIT - COLON CA SCREENING 1974 FLEX SIG - COLON CA SCREENING 1974 ZOSTER VACCINE (1 of 2) 1993 COVID-19 VACCINE (3 - season) 2024 09/29/2022, 01/10/2021 DEPRESSION SCREENING 11/05/2024 04/11/2024 DIABETES - URINE PROTEIN SCREENING 11/05/2024 05/06/2024 HEPATITIS A VACCINE (3 of 3 - Hep A Twinrix risk 3-dose series) 11/16/2024 06/16/2024, 05/12/2024 HEPATITIS B VACCINE (3 of 3 - Hep B Twinrix 3-dose series) 11/16/2024 06/16/2024, 05/12/2024 DIABETES-HGB A1C 04/30/2025 10/30/2024, 10/2024, 04/11/2024 DIABETES-FOOT EXAM WITH MONOFILAMENT 07/08/2025 07/08/2024, 07/08/2024 DIABETES RETINOPATHY SCREENING 07/28/2025 07/28/2024, 07/28/2024, 05/06/2024 DIABETES-SERUM CREATININE 08/11/20252023, 06/16/2024, 05/12/2024, Additional history exists MENINGOCOCCAL VACCINE (3 - Risk 2-dose series) 08/11/2029 08/11/2024, 05/12/2024 DTAP/TDAP/TD VACCINES (2 - Td or Tdap) 06/16/2034 06/16/2024 HEPATITIS C SCREENING Completed 04/11/2024 PNEUMOCOCCAL VACCINE 50+ Completed 05/12/2024 INFLUENZA VACCINE Completed 08/11/2024, 09/23/2013 HIB VACCINE Aged Out No longer eligi ble based on patient's age to complete this topic HPV VACCINE Aged Out No longer eligi ble based on patient's age to complete this topic MENINGOCOCCAL (Group B) VACCINE Aged Out No longer eligible based on patient's age to complete this topic Procedures Procedure Name Priority Date/Time Associated Diagnosis Comments HEMOGLOBIN A1C - POINT OF CARE (IP) Routine 10/30/2024 8:23 AM WATER/WASTEWATER ENGINEER Type 2 diabetes mellitus without complication, without [...] POINT OF CARE (IP) (10/30/2024 8:23 AM WATER/WASTEWATER ENGINEER) Pathologist [facility] Hemoglobin A1c POCT 7.9(A) 3.4 - 6.1 % [facility] [address] [facility] QC Verified Yes Yes [facility] [address] [place] [address] Blood BLOOD SPECIMEN / Unknown 10/30/2024 8:23 AM WATER/WASTEWATER ENGINEER Debbie Titus MD LAB - POINT OF CARE ORDERABLES [address] [facility] [place] [address], [facility] [phone] * (ABNORMAL) COMPREHENSIVE METABOLIC PANEL (08/11/2024 1:00 PM [facility]) BUN 13 7 - 26 mg/dL 08/11/2024 2:14 PM [facility] Creatinine 0.73 0.71 - 1.16 mg/dL 08/11/2024 2:14 PM [facility] Sodium 140 136 - 145 mmol/L 08/11/2024 2:14 PM [facility] Potassium 3.7 3.5 - 4.5 mmol/L 08/11/2024 2:14 PM [facility] Chloride 104 98 - 107 mmol/L 08/11/2024 2:14 PM [facility] CO2 26 22 - 29 mmol/L 08/11/2024 2:14 PM [facility] Glucose 189(H) 70 - 115 mg/dL 08/11/2024 2:14 PM [facility] Calcium 9.5 8.4 - 10.2 mg/dL 08/11/2024 2:14 PM [facility] Protein Total 7.9 6.0 - 8.3 g/dL 08/11/2024 2:14 PM [facility] Albumin 4.0 3.4 - 5.0 g/dL 08/11/2024 2:14 PM [facility] Bilirubin Total 1.6(H) 0.2 - 1.2 mg/dL 08/11/2024 2:14 PM [facility] Alkaline Phosphatase 109 40 - 150 U/L 08/11/2024 2:14 PM [facility] ALT 27 5 - 55 U/L 08/11/2024 2:14 PM [facility] AST 22 5 - 34 U/L 08/11/2024 2:14 PM [facility] Anion Gap 10 6 - 16 08/11/2024 2:14 PM [facility] BUN/Creatinine Ratio 18 7 - 23 08/11/2024 2:14 PM [facility] Osmolality Calculated 295 275 - 295 mOsm/kg 08/11/2024 2:14 PM [facility] Albumin/Globulin Ratio 1.0(L) 1.1 - 2.3 08/11/2024 2:14 PM CDT [facility] eGFR by CKD-EPI >90 >=90 mL/min/1.7 3 m2 08/11/2024 2:14 PM CDT [facility] Blood BLOOD SPECIMEN / Unknown 08/11/2024 1:00 PM CDT 08/11/2024 1:37 PM CDT Edu Dawn MD LAB - CHEMISTRY ORDIsh LEE Performing Organization Address City/[facility] Co de Phone Number [facility] [address] [place] [phone], [facility] [phone] * MICROALB/CREAT RATIO URINE RANDOM PANEL (05/06/2024 12:49 PM CDT) Albumin Random Urine 8.0 Not Established ug/mL 05/06/2024 1:54 PM CDT [facility] Creatinine Urine 73.35 Not Established mg/dL 05/06/2024 1:54 PM CDT [facility] Urine Albumin/Creati nine Ratio 11 <30 mg/g 05/06/2024 1:54 PM CDT [facility] Urine URINE SPECIMEN OBTAINED BY CLEAN CATCH PROCEDURE / Unknown Collection / Unknown 05/06/2024 12:49 PM CDT 05/06/2024 1:25 PM CDT Debbie Titus MD LAB - URINE CHEMISTR Y ORDERABLES Performing Organization Address [facility] Co de Phone Number [address] [address], [facility] [phone] * (ABNORMAL) Diabetes Retinopathy Screening (05/06/2024 11:03 AM CDT) IDX DR SCREEN Diabetic Retinopathy Detected: ETDRS level 35 or higher and/or Diabetic Macular Edema (A) DIGITAL DIAGNOSTICS Comment: Next Steps: Refer to blind eyeletter IDx Submission ID: [id number] Results were produced by a system that [...] nohemy Non-reac tive 04/11/2024 5:40 PM CDT [facility] Comment:Hepatitis C Antibody screen indicates [...] - CHEMISTRY DOMINICK LEE Performing Organization Address City/[facility]/ZIP Co de Phone Number [facility] [address] [place] [address], [facility] [phone] from Last 3 Months or Most Recently Relevant to Health Maintenance Additional Health Concerns Infection Onset Date Last Indicated MRSA 05/06/2024 05/06/2024 Care Teams Starch Treating Assistant Relationship Specialty Start Date End Date Debbie Titus MD [address] [place] [phone] PCP - General Family Medicine 03/20/24
--- OUTSIDE RECORDS SUMMARY | 2025-01-10 15:32 | XMS_ITS | Encounter Summary ---
Author Organization [facility] Address [address] [place] [address] Care Team Providers Care Dishwasher Busser Name Role Phone Debbie Titus MD Primary Care Provider [phone] Reason for Visit * Reason Onset Date Comments MEDICATION REFILL 09/22/2024 Encounter Details Date Type Department Care Team (Late st Contact Info) Description 09/22/2024 Refill [facility] - Family Medicine [address] [place] [phone] Debbie Titus MD [address] [place] [address] [place] [phone] MEDICATION REFILL Social History Tobacco Use Types [...] Visit [facility] - Infectious Disease [address] [place] [phone] Edu Dawn MD [address] [place] [address] DIV [place] [address] 08/03/2025 10:00 AM CDT Office Visit [facility] - Ophthalmology [address] [place] [phone] Arpit Machado OD [address] [place] [phone] documented as of this encounter Visit Diagnoses Diagnosis Type 2 diabetes mellitus without complication, without long-term current use of insulin (HCC) documented in this encounter Additional Health Concerns Infection Onset Date Last Indicated Resolved Time MRSA 05/06/2024 05/06/2024 documented as of this encounter Care Teams Dishwasher Busser Relationship Specialty Start Date End Date Debbie Titus MD [address] [place] [address] [place] [phone] PCP - General Family Medicine 03/20/24 documented as of this encounter
--- OUTSIDE RECORDS SUMMARY | 2025-01-10 15:32 | XMS_ITS | Encounter Summary ---
Author Organization [facility] Address [address] [place] [address] Care Team Providers Care Photo Technician Name Role Phone Debbie Titus MD Primary Care Provider [phone] Reason for Visit * Reason Onset Date Comments Appointment 03/21/2024 Encounter Details Date Type Department Care Team (Late st Contact Info) Description 03/21/2024 Telephone [facility] - Hematology/Oncology [address] [place] [address] Aldo Lindo MD [address] [place] [address] Appointment Social History Tobacco Use Types Packs/Day Years Used Date Smoking Tobacco: Never Assessed Sex and Gender Information Value Date Recorded Sex Assigned at Not on file Gender Identity Not on file Sexual Orientation Not on file documented as of this encounter Miscellaneous Notes * Telephone Encounter - Iveth Townsend - 03/21/2024 8:20 AM CDT Called pt to schedule new pt appt.no ans, lvm to call office. Spoke with nephew; provided appt 04/08@820. documented in this encounter Plan of Treatment Upcoming Encounters Date Type Department Care Team (Late st Contact Info) Description 02/06/2025 10:00 AM CDT Office Visit [facility] - Infectious Disease [address] [place] [phone] Edu Dawn MD [address] [place] [address] DIV OF [place] [address] 08/03/2025 10:00 AM CDT Office Visit [facility] - Ophthalmology [address] [place] [address], [place] [phone] Arpit Machado OD [address] [place] [phone] documented as of this encounter Visit Diagnoses Not on filedocumented in this encounter Additional Health Concerns Infection Onset Date Last Indicated Resolved Time MRSA 05/06/2024 05/06/2024 documented as of this encounter Care Teams Photo Technician Relationship Specialty Start Date End Date Debbie Titus MD [address] [place] [address] [address] [place] [phone] PCP - General Family Medicine 03/20/24 documented as of this encounter
[2025-01-10 16:19] VITALS: BP 124/77; PULSE 94; RESP 16; TEMP 36.5; O2SAT 100
--- OUTSIDE RECORDS SUMMARY | 2025-01-10 17:19 | XMS_ITS | Patient Health Summary ---
Author Organization [facility] [employer] Address [address] [place] [address] Care Team Providers Care Commercial Loan Underwriter Name Role Phone Debbie Titus MD Primary Care Provider [phone] Note from [facility],non-owned Affiliates and Associated Physician Practices is amultiple site organization consisting of ambulatory clinics and hospital sitesin [place], [place], [place] and [place]. This disclosure is being madepursuant to the Care Everywhere program and may not contain all information available regarding this patient. Last updated 18.[facility] Allergies * Penicillins(Rash) -Medium Criticality Medications * [...] daily with morning and evening meal * xgfrrnltios-sapjcemrmoatt-ycgeswequ (Biktarvy) 50-200-25 MG Take 1 (one) tablet by mouth once daily * potassium chloride ER (Klor-Con M) 20 MEQ tablet Take 1 (one) tablet by mouth 2 times daily * nhmcadxopdc-knsfktcsccajr-muridoizh (Biktarvy) 50-200-25 MG(Started 04/11/2024) Take 1 (one) [...] Comments Blood Pressure 136/84 10/30/2024 8:06 AM HEALTH INFORMATION DIRECTOR Pulse 93 10/30/2024 8:06 AM HEALTH INFORMATION DIRECTOR Temperature 36.8 C (98.2 F) 05/13/2024 9:56 AM CDT Respiratory Rate 20 05/13/2024 9:56 AM CDT Oxygen Saturation 98% 10/30/2024 8:06 AM HEALTH INFORMATION DIRECTOR Inhaled Oxygen Concentration - - Weight 92.1 kg (203 lb) 10/30/2024 8:06 AM HEALTH INFORMATION DIRECTOR Height 177.8 cm (5' 10 ) 10/30/2024 8:06 AM HEALTH INFORMATION DIRECTOR Body Mass Index 29.13 10/30/2024 8:06 AM HEALTH INFORMATION DIRECTOR Procedures * HEMOGLOBIN A1C - POINT OF [...] infection, with no history of HIV-related illness ([facility]) * HIV-1 RNA PCR QUANTITATIVE(Performed 06/16/2024) Performed for Asymptomatic HIV infection, with no history of HIV-related illness ([facility]) * CD4 (ABSOLUTE T4)(Performed 06/16/2024) Performed for Human immunodeficiency virus (HIV) disease ([facility]), Need for prophylactic vaccination with tetanus-diphtheria (Td), Need for prophylactic vaccination and inoculation against viral hepatitis * COMPREHENSIVE METABOLIC PANEL(Performed 05/12/2024) Performed for Human immunodeficiency virus (HIV) disease ([facility]), Need for prophylactic vaccination against single bacterial disease, Need for prophylactic vaccination against Streptococcus pneumoniae (pneumococcus), Need for prophylactic vaccination and inoculation against viral hepatitis * CBC W AUTO DIFFERENTIAL(Performed 05/12/2024) Performed for Human immunodeficiency virus (HIV) disease ([facility]), Need for prophylactic vaccination against single bacterial disease, Need for prophylactic vaccination against Streptococcus pneumoniae (pneumococcus), Need for prophylactic vaccination and inoculation against viral hepatitis * HIV-1 RNA PCR QUANTITATIVE(Performed 05/12/2024) Performed for Human immunodeficiency virus (HIV) disease ([facility]), Need for prophylactic vaccination against single bacterial disease, Need for prophylactic vaccination against Streptococcus pneumoniae (pneumococcus), Need for prophylactic vaccination and inoculation against viral hepatitis * CD4 (ABSOLUTE T4)(Performed 05/12/2024) Performed for Human immunodeficiency virus (HIV) disease ([facility]), Need for prophylactic vaccination against single [...] complication, without long-term current use of insulin ([facility]) * CULTURE WOUND+GRAM STAIN(Performed 05/06/2024) Performed for Infected sebaceous cyst of skin * MRI BRAIN WWO CONTRAST(Performed 04/29/2024) Performed for Dizziness * PET CT WHOLE BODY(Performed 04/29/2024) Performed for Lymphadenopathy * GLUCOSE SCREEN - POCT (IP) [facility](Performed 04/29/2024) * URINALYSIS NO MICROSCOPIC NO CULTURE(Performed 04/11/2024) Performed for Human immunodeficiency virus (HIV) disease ([facility]) * HLA-B 5701 GENOTYPING(Performed 04/11/2024) Performed for Human immunodeficiency virus (HIV) disease ([facility]) * QUANTIFERON-TB GOLD PLUS 4-TUBE(Performed 04/11/2024) [...] POINT OF CARE (IP) (10/30/2024 8:23 AM HEALTH INFORMATION DIRECTOR) [facility] Hemoglobin A1c POCT 7.9(A) 3.4 - 6.1 % [address] QC Verified Yes Yes [address] Blood BLOOD SPECIMEN / Unknown 10/30/2024 8:23 AM HEALTH INFORMATION DIRECTOR Debbie Titus MD LAB - POINT OF CARE ORDERABLES [address] [place] [address], [facility] [phone] * HIV-1 RNA PCR QUANTITATIVE (08/11/2024 1:01 PM CDT) Only the most recent of4 resultswithin the time period is included. [facility] HIV-1 RNA Quantitative PCR 30 copies/mL 08/15/2024 9:13 AM CDT [facility] ([facility]) Comment: The reportable range for this assay is 20 to 10,000,000 copies HIV-1 RNA/mL. log10 HIV-1 RNA Copies/mL 1.477 trs95pioi/ mL 08/15/2024 9:13 AM CDT [facility] ([facility]) Blood BLOOD SPECIMEN / Unknown 08/11/2024 1:01 PM CDT 08/11/2024 1:37 PM CDT Narrative [facility] ([facility]) - 08/15/2024 9:13 AM CDT Performed at: [address] [place] [address] [id number] Consulting Psychiatrist: Gabby Gee MD, Phone: [phone] Edu Dawn MD LAB - SEROLOGY ORDER [facility] ([facility]) [address] [place] [address] * HEPATITIS B SURFACE ANTIBODY QUANT (08/11/2024 1:00 PM CDT) Only the most recent of2 resultswithin the time period is included. Hepatitis B Virus Surface Antibody 4.40 IU/L 08/12/2024 11:25 AM CDT [facility] [employer] ([facility]) Comment: The anti-HBs is less than [...] Cellular and Tissue-Based Products (HCT/P). Performed By: [facility] [address] [place] [address] [employer] Serv[employer]: Per Meza MD, PhD CLIA Number: [id number] Blood BLOOD SPECIMEN / Unknown 08/11/2024 1:00 PM CDT 08/11/2024 1:37 PM CDT Edu Dawn MD LAB - SEROLOGY ORDER CARLEEN [facility] ([facility]) [address] * CD4 (ABSOLUTE T4) (08/11/2024 1:00 PM CDT) Only the most recent of4 resultswithin the time period is included. Reason for test Human immunodeficiency virus (HIV) disease (HCC) 042 Type 2 diabetes mellitus without complication, without long-term current use of insulin (HCC) Need for prophylactic vaccination against single bacterial disease V03.9 08/12/2024 8:29 AM [facility] Client Specimen ID # [id number] 08/12/2024 8:29 AM [facility] Number of Markers 2 08/12/2024 8:29 AM [facility] Flow Cytometry Results Differential Result Comment WBC Count /uL 6,900 % Lymphocytes 26 Lymphocyte Count u/L 1,794 Cell Region A: Lymphocytes Surface Marker Results % Absolute Count (cells/uL) CD4 13 233 08/12/2024 8:29 AM [facility] Flow Cytometry Interpretation Testing is technical only and does not require an interpretation of results. 08/12/2024 8:29 AM [facility] Electronically signed by Nathalie Malloy for Nirav Boykin MLT([facility]) on 08/12/2024 at 8:29 AM Reference Range Adult Normal Reference Range Adult (> 18 years) CD3 54-84 % CD4 33-63 % CD8 12-39 % CD19 5-19 % CD56 6-26 % CD4+CD45RA+ 30-50 % CD4+CD45RO+ 17-42 % CD19+CD27+ 7-48 % CD19+CD27+IgD+ 7-29 % CD19+CD27+IgD- 3-23 % CD19+HK50-FwS+ 29-93 % % 08/12/2024 8:29 AM [facility] Disclaimer Test performed at [facility], [address] [place] [address], [id number]. This test was developed and its performance [...] perform high complexity clinical testing. By law [place], CD4 lymphocyte counts on patients with HIV infection must be reported by the physician to the [facility] Health authority. 08/12/2024 8:29 AM CDT [facility] Embedded Images 8:29 AM CDT [facility] Blood BLOOD SPECIMEN / Unknown 08/11/2024 1:00 PM CDT 08/11/2024 1:37 PM CDT Edu Dawn MD LAB - HEMATOLOGY ORD ERABLES [facility] [address] [id number] [phone] * CBC WITH DIFFERENTIAL (08/11/2024 1:00 PM CDT) Only the most recent of5 resultswithin the time period is included. WBC 6.9 4.0 - 10.7 x10E9/L 08/11/2024 1:55 PM [facility] RBC Count 5.07 4.30 - 5.80 x10E12/L 08/11/2024 1:55 PM [facility] Hemoglobin 15.5 13.3 - 17.5 g/dL 08/11/2024 1:55 PM [facility] Hematocrit 46.4 38.7 - 51.1 % 08/11/2024 1:55 PM [facility] MCV 91.5 80.0 - 98.0 fL 08/11/2024 1:55 PM [facility] MCH 30.6 26.7 - 33.6 pg 08/11/2024 1:55 PM [facility] MCHC 33.4 31.7 - 36.3 g/dL 08/11/2024 1:55 PM [facility] RDW-CV 12.9 11.3 - 14.8 % 08/11/2024 1:55 PM [facility] Platelet Count 217 150 - 420 x10E9/L 08/11/2024 1:55 PM [facility] MPV 10.4 7.8 - 11.4 fL 08/11/2024 1:55 PM [facility] Neutrophil % 59.6 41.0 - 74.0 % 08/11/2024 1:55 PM [facility] Lymphocyte % 26.4 17.0 - 47.0 % 08/11/2024 1:55 PM [facility] Monocyte % 9.9 3.0 - 11.0 % 08/11/2024 1:55 PM [facility] Eosinophil % 2.9 0.0 - 7.0 % 08/11/2024 1:55 PM [facility] Basophil % 0.6 0.0 - 1.6 % 08/11/2024 1:55 PM [facility] Immature Granulocytes % 0.6 0.0 - 1.0 % 08/11/2024 1:55 PM [facility] Neutrophil Absolute 4.09 1.60 - 7.50 x10E9/L 08/11/2024 1:55 PM [facility] Lymphocyte Absolute 1.81 1.00 - 4.40 x10E9/L 08/11/2024 1:55 PM [facility] Monocyte Absolute 0.68 0.15 - 1.00 x10E9/L 08/11/2024 1:55 PM [facility] Eosinophil Absolute 0.20 0.00 - 0.60 x10E9/L 08/11/2024 1:55 PM [facility] Basophil Absolute 0.04 0.00 - 0.13 x10E9/L 08/11/2024 1:55 PM [facility] Blood BLOOD SPECIMEN / Unknown 08/11/2024 1:00 PM CDT 08/11/2024 1:37 PM CDT Edu Dawn MD LAB - HEMATOLOGY ORD ERABLES [facility] [address] [place] [address], [facility] [phone] * (ABNORMAL) COMPREHENSIVE METABOLIC PANEL (08/11/2024 1:00 PM CDT) Only the most recent of4 resultswithin the time period is included. BUN 13 7 - 26 mg/dL 08/11/2024 2:14 PM T [facility] Creatinine 0.73 0.71 - 1.16 mg/dL 08/11/2024 2:14 PM [facility] Sodium 140 136 - 145 mmol/L 08/11/2024 2:14 PM [facility] Potassium 3.7 3.5 - 4.5 mmol/L 08/11/2024 2:14 PM [facility] Chloride 104 98 - 107 mmol/L 08/11/2024 2:14 PM [facility] CO2 26 22 - 29 mmol/L 08/11/2024 2:14 PM [facility] Glucose 189(H) 70 - 115 mg/dL 08/11/2024 2:14 PM [facility] Calcium 9.5 8.4 - 10.2 mg/dL 08/11/2024 2:14 PM [facility] Protein Total 7.9 6.0 - 8.3 g/dL 08/11/2024 2:14 PM [facility] Albumin 4.0 3.4 - 5.0 g/dL 08/11/2024 2:14 PM [facility] Bilirubin Total 1.6(H) 0.2 - 1.2 mg/dL 08/11/2024 2:14 PM [facility] Alkaline Phosphatase 109 40 - 150 U/L 08/11/2024 2:14 PM [facility] ALT 27 5 - 55 U/L 08/11/2024 2:14 PM [facility] AST 22 5 - 34 U/L 08/11/2024 2:14 PM [facility] Anion Gap 10 6 - 16 08/11/2024 2:14 PM [facility] BUN/Creatinine Ratio 18 7 - 23 08/11/2024 2:14 PM [facility] Osmolality Calculated 295 275 - 295 mOsm/kg 08/11/2024 2:14 PM [facility] Albumin/Globulin Ratio 1.0(L) 1.1 - 2.3 08/11/2024 2:14 PM [facility] eGFR by CKD-EPI >90 >=90 mL/min/1.7 3 m2 08/11/2024 2:14 PM [facility] Blood BLOOD SPECIMEN / Unknown 08/11/2024 1:00 PM CDT 08/11/2024 1:37 PM CDT Edu Dawn MD LAB - CHEMISTRY DOMINICK LEE [facility] [address] [place] [address], [facility] [phone] * HEPATITIS A ANTIBODY (08/11/2024 1:00 PM CDT) Only the most recent of2 resultswithin the time period is included. Hepatitis A Virus Antibody Total Negative Negative 08/12/2024 12:09 PM CDT [employer] [facility] ([facility]) Comment: Performed By: [facility] [address] [place] [address] [employer] Servicer: Per Meza MD, PhD CLIA Number: [id number] Blood BLOOD SPECIMEN / Unknown 08/11/2024 1:00 PM CDT 08/11/2024 1:37 PM CDT Edu Dawn MD LAB - CHEMISTRY DOMINICK LEE Performing Organization Address City/[facility] Co de Phone Number [facility] ([facility]) [address] [place] [address] * (ABNORMAL) HEMOGLOBIN A1C (06/16/2024 2:33 PM CDT) Only the most recent of2 resultswithin the time period is included. Hemoglobin A1c 9.1(H) <=5.6 % 06/17/2024 9:03 AM CDT [facility] Estimated Average Glucose 214 mg/dL 06/17/2024 9:03 AM CDT [facility] Comment: HbA1c Interpretation: Normal : < 5.7% Pre-diabetes: 5.7-6.4% Diabetes: Equal to or greater than 6.5% Test results diagnostic of diabetes should be repeated for confirmation. Treatment target values recommended by ADA and other clinical organizations should be used to evaluate metabolic control in patients. Reference: [place] Diabetes Association, Standards of Care in Diabetes [...] - CHEMISTRY DOMINICK LEE Performing Organization Address [facility] Co de Phone Number [address] [address], [facility] [phone] * MICROALB/CREAT RATIO URINE RANDOM PANEL (05/06/2024 12:49 PM CDT) Albumin Random Urine 8.0 Not Established ug/mL 05/06/2024 1:54 PM CDT [facility] Creatinine Urine 73.35 Not Established mg/dL 05/06/2024 1:54 PM CDT [facility] Urine Albumin/Creati nine Ratio 11 <30 mg/g 05/06/2024 1:54 PM CDT [facility] Urine URINE SPECIMEN OBTAINED BY CLEAN CATCH PROCEDURE / Unknown Collection / Unknown 05/06/2024 12:49 PM CDT 05/06/2024 1:25 PM CDT Debbie Titus MD LAB - URINE CHEMISTR Y ORDERABLES Performing Organization Address [facility] Co de Phone Number [address] [address], [facility] [phone] * (ABNORMAL) Diabetes Retinopathy Screening (05/06/2024 11:03 AM CDT) IDX DR SCREEN Diabetic Retinopathy Detected: ETDRS level 35 or higher and/or Diabetic Macular Edema (A) [facility] Comment: Next Steps: Refer to skilled nursing professional IDx Submission ID: [id number] Results were produced by a system that [...] nt (MRSA)(A) PARAM 05/09/2024 6:26 AM CDT [facility] Comment:Staphylococcus aureu s methicillin-resistant (MRSA) detected by penicillin binding protein immunoassay. Contact precautions required. Conventional antibiotic susceptibility testing to follow. Gram Stain Rare Polymorphonuclear cells 05/09/2024 6:26 AM CDT [facility] Gram Stain Light Gram-positive cocci 05/09/2024 6:26 AM CDT [facility] Microbiology SEBACEOUS CYST / Unknown Collection / Unknown 05/06/2024 10:43 AM CDT 05/06/2024 5:08 PM CDT Narrative [facility] - 05/09/2024 6:26 AM CDT [...] Titus MD LAB - MICROBIOLOGY O RDERABLES [facility] [address] [place] [address], [facility] [phone] * MRI BRAIN WWO CONTRAST (04/29/2024 12:32 PM CDT) Anatomical Region Laterality Modality Head Magnetic Resonan ce 05/11/2024 10:4 9 AM CDT Impressions 05/11/2024 10:55 AM CDT IMPRESSION: 1. No evidence of intracranial malignancy. > Interpreting Provider: Cj Gao MD on 05/11/2024 10:55 AM Narrative 05/11/2024 10:55 AM CDT PROCEDURE: MRI BRAIN WWO CONTRAST, DATE/TIME OF EXAM: 04/29/2024 12:32 PM, LOCATION [facility] INDICATION: R42: Dizziness ADDITIONAL CLINICAL INFORMATION: Ordering [...] CONTRAST, DATE/TIME OF EXAM: 04/29/2024 12:32PM, LOCATION [facility] INDICATION: R42: Dizziness ADDITIONAL CLINICAL INFORMATION: Ordering [...] be reactive. Report dictated by Brian Tejeda MD(vice president industrial relations).. > Dictated by Brian Tejeda MD (Poultry Husbandry Teacher) 04/29/2024 10:03 AM I, Erin Fermin, DO have personally reviewed and interpreted this examination/study. > Interpreting Provider: Erin Christensen DO on 04/29/2024 1:43 PM Narrative 04/29/2024 1:43 PM CDT PROCEDURE: PET CT WHOLE BODY, DATE/TIME OF EXAM: 04/29/2024 10:32 AM, LOCATION [facility] INDICATION: R59.1: Lymphadenopathy COMPARISON: No prior PET-CT [...] DATE/TIME OF EXAM: 04/29/2024 10:32 AM, LOCATION [facility] INDICATION: R59.1: Lymphadenopathy COMPARISON: No prior PET-CT [...] glucose level at the time of injection arn502 mg/dl. Patient's BMI is 24.2 kg/m . [...] be reactive. Report dictated by Brian Tejeda MD(vice president industrial relations).. > Dictated by Brian Tejeda MD (Poultry Husbandry Teacher) 04/29/2024 10:03 AM IErin DO have personally reviewed and interpreted this examination/study. > Interpreting Provider: Erin Christensen DO on 04/29/2024 1:43 PM Aldo Kohli MD NM ORDERABLES * (ABNORMAL) GLUCOSE SCREEN - POCT (IP) [facility] (04/29/2024 8:58 AM CDT) Pathologist [facility] Glucose WB/POC 230(A) 70 - 115 mg/dL [facility] POCT TESTING Blood BLOOD SPECIMEN / Unknown 04/29/2024 8:58 AM CDT Aldo Kohli MD LAB - POINT OF C ARE ORDERABLES [facility] POCT TESTING [address] [place] [address], [facility] [phone] * HEPATITIS C ANTIBODY REFLX QUANT & GENOTYPE (04/11/2024 12:13 PM CDT) Pathologist [facility] Hepatitis C Antibody Non-react nohemy Non-reac tive 04/11/2024 5:40 PM CDT [facility] Comment:Hepatitis C Antibody screen [...] Dawn MD LAB - CHEMISTRY DOMINICK LEE [facility] [id number] [place] [address], [facility] [phone] * CHLAMYDIA + GC AMPLIFIED PROBE (04/11/2024 12:13 PM CDT) Only the most recent of3 resultswithin the time period is included. [facility] Chlamydia Amplified Probe Negative Negative 04/12/2024 12:15 AM CDT [facility] GC Amplified Probe Negative Negative 04/12/2024 12:15 AM CDT [facility] Microbiology URINE / Unknown Collection / Unknown 04/11/2024 12:13 PM CDT 04/11/2024 4:14 PM CDT Narrative [facility] - 04/12/2024 12:15 AM CDT Results based on detection/no detection of ribosomal RNA by amplified method. Edu Dawn MD LAB - MICROBIOLOGY O RDERABLES [facility] [address] [place] [address], [facility] [phone] * QUANTIFERON-TB GOLD PLUS 4-TUBE (04/11/2024 12:13 PM CDT) [facility] QuantiFERON Mitogen Minus NIL 8.16 IU/mL 04/16/2024 2:13 PM CDT [facility] ([facility]) QuantiFERON Nil Value 1.84 IU/mL 04/16/2024 2:13 PM CDT [facility] ([facility]) QuantiFERON Plus TB1 Minus NIL -0.46 <=0.34 IU/mL 04/16/2024 2:13 PM CDT [facility] ([facility]) QuantiFERON Plus TB2 Minus NIL -0.49 <=0.34 IU/mL 04/16/2024 2:13 PM CDT [facility] [employer] [facility] ([facility]) QuantiFERON-TB Gold Plus Negative Negative 04/16/2024 2:13 PM CDT [facility] [employer] [facility] ([facility]) Comment: INTERPRETIVE INFORMATION:Quantiferon TB Gold Plus [...] Mycobacterium tuberculosis Infection -- [place], 2010 (http://www.cdc.gov/mmwr/preview/mmwrhtml/wr6211w3.htm), for more information concerning test performance in low-prevalence populations and use in occupational screening. Performed By: [facility] [address] [place] [address] [employer] Servicer: Per Meza MD, PhD CLIA Number: [id number] Blood BLOOD SPECIMEN / Unknown Lab Venipuncture / Unknown 04/11/2024 12:13 PM CDT 04/11/2024 4:14 PM CDT Edu Dawn MD LAB - CHEMISTRY DOMINICK LEE [facility] Organization Address City/State/ZIP Co de Phone Number [facility] [employer] [facility]) [address] [place] [address] * HLA-B 5701 GENOTYPING (04/11/2024 12:13 PM CDT) [facility] Signature HLA B 5701 Typing Negative 024 3:22 PM CDT [facility] ([facility]) Comment: Indication for testing: Considering or [...] percent, Other 0-6.7 percent, 6.8 percent, [place] 2.6 percent, 2.5 percent, Lao 2.2 percent, 1 percent. CLINICAL SENSITIVITY: 100 [...] developed and its performance characteristics determined by [facility]. It has not been cleared or approved by the [place] Food and Drug Administration. This test was performed in a CLIA certified laboratory and is intended for clinical purposes. Counseling and informed consent are recommended for genetic testing. Consent forms are available online. Performed By: [facility] [address] [place] [address] [employer] Servicer: Per Meza MD, PhD CLIA Number: [id number] Specimen [id number] Whole Blood 04/19 3:22 PM CDT [facility]) Blood BLOOD SPECIMEN / Unknown Lab Venipuncture / Unknown 04/11/2024 12:13 PM CDT 04/11/2024 4:14 PM CDT Edu Dawn MD LAB - CHEMISTRY DOMINICK LEE [facility]) [address] * URINALYSIS NO MICROSCOPIC NO CULTURE (04/11/2024 12:13 PM CDT) Color UA Yellow Straw, Yellow 04/11/2024 4:46 PM CDT [facility] Clarity UA Clear Clear 04/11/2024 4:46 PM T [facility] Specific [place] UA 1.018 1.005 - 1.030 04/11/2024 4:46 PM T [facility] pH UA 6.0 5.0 - 8.0 pH 04/11/2024 4:46 PM T [facility] Protein UA Negative Negative 04/11/2024 4:46 PM T [facility] Glucose UA Negative Negative 04/11/2024 4:46 PM T [facility] Ketone UA Negative Negative 04/11/2024 4:46 PM T [facility] Bilirubin UA Negative Negative 04/11/2024 4:46 PM T [facility] Blood UA Negative Negative 04/11/2024 4:46 PM T [facility] Nitrite UA Negative Negative 04/11/2024 4:46 PM T [facility] Leukocyte Esterase Negative Negative 04/11/2024 4:46 PM [facility] Urobilinogen UA Negative Negative mg/dL 04/11/2024 4:46 PM T [facility] Urine URINE SPECIMEN OBTAINED BY CLEAN CATCH PROCEDURE / Unknown Collection / Unknown 04/11/2024 12:13 PM CDT 04/11/2024 4:14 PM CDT Narrative [facility] - 04/11/2024 4:46 PM CDT Edu Dawn MD LAB - URINALYSIS ORD ERABLES [facility] [address] [place] [address], [place] [phone] * SYPHILIS ANTIBODY CASCADING REFLEX (04/11/2024 12:12 PM CDT) Treponema pallidum Antibody Non-react nohemy Non-react nohemy 04/11/2024 5:40 PM CDT [facility] Comment: No Laboratory evidence of syphilis infection. Note: Circulating antibodies may be low or undetectable in early infection. If recent exposure is suspected, re-draw sample in 2-4 weeks and repeat testing. Blood BLOOD SPECIMEN / Unknown Lab Venipuncture / Unknown 04/11/2024 12:12 PM CDT 04/11/2024 4:14 PM CDT Edu Dawn MD LAB - SEROLOGY ORDER CARLEEN Performing Organization Address City/[facility]/ZIP Co de Phone Number [facility] [address] [place] [address], [facility] [phone] * (ABNORMAL) LIPID PROFILE (04/11/2024 12:12 PM CDT) Cholesterol Total 98 <200 mg/dL 04/11/2024 5:11 PM CDT [facility] HDL 32(L) >40 mg/dL 04/11/2024 5:11 PM CDT [facility] Comment: ATP III Classification of HDL Cholesterol: <40 mg/dL: Considered a major risk factor. >60 mg/dL: Considered a negative risk factor. LDL Calculated 47 <100 mg/dL 04/11/2024 5:11 PM T [facility] Comment: ATP III Classification of LDL Cholesterol: <100 mg/dL: Optimal 100 - 129 mg/dL: Near Optimal/Above Optimal 130 - 159 mg/dL: Borderline High 160 - 189 mg/dL: High >190 mg/dL: Very High Triglycerides 94 <150 mg/dL 04/11/2024 5:11 PM CDT [facility] Comment: ATP III Classification of Triglycerides: <150 mg/dL: Normal 150 - 199 mg/dL: Borderline High 200 - 400 mg/dL: High >500 mg/dL: Very High Blood BLOOD SPECIMEN / Unknown Lab Venipuncture / Unknown 04/11/2024 12:12 PM CDT 04/11/2024 4:14 PM CDT Edu Dawn MD LAB - CHEMISTRY DOMINICK LEE Performing Organization Address City/[facility]/ZIP Co de Phone Number [facility] [address] [place] [address], [facility] [phone] * TOXOPLASMA GONDII ANTIBODY IGG (04/11/2024 12:00 PM CDT) [facility] Toxoplasma Antibody IgG <3.0 <=8.8 IU/mL 04/15/2024 12:52 PM CDT [employer] ([facility]) Comment: INTERPRETIVE INFORMATION: Toxoplasma Ab, IgG [...] the amount of antibody present. Performed By: [facility] [address] [place] [id number] [employer] Servicer: Per Meza MD, PhD CLIA Number: [id number] Blood BLOOD SPECIMEN / Unknown Lab Venipuncture / Unknown 04/11/2024 12:00 PM CDT 04/11/2024 4:14 PM CDT Edu Dawn MD LAB - CHEMISTRY DOMINICK LEE [facility] [facility]) [address] [id number] * TSH REFLEX FREE T4 (04/08/2024 9:36 AM CDT) TSH 1.527 0.350 - 4.940 uIU/mL 04/08/2024 10:53 AM CDT [facility] Blood BLOOD SPECIMEN / Unknown Lab Venipuncture / Unknown 04/08/2024 9:36 AM CDT 04/08/2024 9:45 AM CDT Aldo Kohli MD LAB - CHEMISTRY ORDERABLES [facility] [address] [place] [address], [facility] [phone] * (ABNORMAL) ZINC BLOOD (04/08/2024 9:36 AM CDT) Zinc 55.1(L) 60.0 - 120.0 ug/dL 04/09/2024 11:59 PM CDT [employer] ([facility]) Comment: INTERPRETIVE INFORMATION: Zinc, Serum or [...] developed and its performance characteristics determined by [facility]. It has not been cleared or approved by the [place] Food and Drug Administration. This test was performed in a CLIA certified laboratory and is intended for clinical purposes. Performed By: [facility] [address] [place] [address] [employer]: Per Meza MD, PhD CLIA Number: [id number] Blood BLOOD SPECIMEN / Unknown Lab Venipuncture / Unknown 04/08/2024 9:36 AM CDT 04/08/2024 9:43 AM CDT Aldo Kohli MD LAB - CHEMISTRY ORDERABLES Performing Organization Address [facility] de Phone Number [facility] [employer] ([facility]) [address] * COPPER BLOOD (04/08/2024 9:36 AM CDT) Copper 133.6 70.0 - 140.0 ug/dL 04/09/2024 11:59 PM CDT [facility] [employer] ([facility]) Comment: INTERPRETIVE INFORMATION: Copper, Serum or [...] developed and its performance characteristics determined by [facility]. It has not been cleared or approved by the US Food and Drug Administration. This test was performed in a CLIA certified laboratory and is intended for clinical purposes. Performed By: [facility] [address] [place] [address] [employer]: Per Meza MD, PhD CLIA Number: [id number] Blood BLOOD SPECIMEN / Unknown Lab Venipuncture / Unknown 04/08/2024 9:36 AM CDT 04/08/2024 9:43 AM CDT Aldo Kohli MD LAB - CHEMISTRY ORDERABLES Performing Organization Address [facility] Co de Phone Number [facility] [employer] ([facility]) [address] * RETIC COUNT (04/08/2024 9:36 AM CDT) Reticulocyte Percent 1.49 0.50 - 2.40 % 04/08/2024 9:50 AM CDT [facility] Reticulocyte Absolute 0.0659 0.0200 - 0.1100 x10E6/uL 04/08/2024 9:50 AM CDT [facility] Ret-HE 34.3 29.0 - 37.9 pg 04/08/2024 9:50 AM CDT [facility] Immature Reticulocyte Fraction 7.0 1.8 - 15.2 % 04/08/2024 9:50 AM CDT [facility] Blood BLOOD SPECIMEN / Unknown Lab Venipuncture / Unknown 04/08/2024 9:36 AM CDT 04/08/2024 9:45 AM CDT Aldo Kohli MD LAB - HEMATOLOGY ORDERABLES [address] [address], [facility] [phone] * LDH BLOOD (04/08/2024 9:36 AM CDT) LDH Total 218 125 - 243 Units/L 04/08/2024 10:20 AM CDT [facility] Blood BLOOD SPECIMEN / Unknown Lab Venipuncture / Unknown 04/08/2024 9:36 AM CDT 04/08/2024 9:45 AM CDT Aldo Kohli MD LAB - CHEMISTRY ORDERABLES Performing Organization Address City/[facility]/ZIP Co de Phone Number [address] [address], [place] [phone] * FOLATE (04/08/2024 9:36 AM CDT) Folate 9.4 7.0 - 31.4 ng/mL 04/08/2024 10:53 AM CDT [facility] Blood BLOOD SPECIMEN / Unknown Lab Venipuncture / Unknown 04/08/2024 9:36 AM CDT 04/08/2024 9:45 AM CDT Aldo Kohli MD LAB - CHEMISTRY ORDERABLES [address] [place] [address], [facility] [phone] * VITAMIN B12 (04/08/2024 9:36 AM CDT) Vitamin B12 778 213 - 816 pg/mL 04/08/2024 10:53 AM CDT [facility] Blood BLOOD SPECIMEN / Unknown Lab Venipuncture / Unknown 04/08/2024 9:36 AM CDT 04/08/2024 9:45 AM CDT Aldo Kohli MD LAB - CHEMISTRY ORDERABLES [address] [address], [facility] [phone] * (ABNORMAL) IRON + TRANSFERRIN PANEL (04/08/2024 9:36 AM CDT) Iron 55 50 - 175 ug/dL 04/08/2024 10:31 AM CDT [facility] Transferrin 290 174 - 382 mg/dL 04/08/2024 10:31 AM CDT [facility] Transferrin Saturation % 15(L) 16 - 50 % 04/08/2024 10:31 AM CDT [facility] TIBC Calculated 363 240 - 450 ug/dL 04/08/2024 10:31 AM CDT [facility] Blood BLOOD SPECIMEN / Unknown Lab Venipuncture / Unknown 04/08/2024 9:36 AM CDT 04/08/2024 9:42 AM CDT Aldo Kohli MD LAB - CHEMISTRY ORDERABLES [address] [address], [place] [phone] * HAPTOGLOBIN (04/08/2024 9:36 AM CDT) Haptoglobin 210 14 - 258 mg/dL 04/08/2024 10:23 AM CDT [facility] Blood BLOOD SPECIMEN / Unknown Lab Venipuncture / Unknown 04/08/2024 9:36 AM CDT 04/08/2024 9:42 AM CDT Aldo Kohli MD LAB - CHEMISTRY ORDERABLES Performing Organization Address City/[facility]/ZIP Co de Phone Number [facility] [address] [place] [address], [facility] [phone] * (ABNORMAL) FERRITIN (04/08/2024 9:36 AM CDT) Ferritin 503(H) 22 - 275 ng/mL 04/08/2024 10:35 AM CDT [facility] Blood BLOOD SPECIMEN / Unknown Lab Venipuncture / Unknown 04/08/2024 9:36 AM CDT 04/08/2024 9:42 AM CDT Aldo Kohli MD LAB - CHEMISTRY ORDERABLES Performing Organization Address [facility] Co de Phone Number [address] [address], [facility] [phone] Care Teams Commercial Loan Underwriter Relationship Specialty Start Date End Date Debbie Titus MD [address] [place] [phone] PCP - General Family Medicine 03/20/24
--- OUTSIDE RECORDS SUMMARY | 2025-01-10 17:19 | XMS_ITS | Referral Summary ---
Author Organization [facility] Address [address] [facility] [place] [address] Care Team Providers Care Hired Worker Name Role Phone Debbie Titus MD Primary Care Provider [phone] Source Comments [facility],non-owned Affiliates and Associated Physician Practices is amultiple site organization consisting of ambulatory clinics and hospital sitesin [place], [place], [place] and [place]. This disclosure is being madepursuant to the Care Everywhere program and may not contain all information available regarding this patient. Last updated 18.[facility] Encounters Date Type Department Care Team Description 12/28/2024 Refill [facility] - Family Medicine [address] [place] [phone] Debbie Titus MD Refill Request 12/02/2024 Travel 11/28/2024 Refill [facility] - Family Medicine [address] [place] [phone] Debbie Titus MD Refill Request 10/30/2024 Travel 10/30/2024 8:00 AM PREVENTIVE MAINTENANCE COORDINATOR Office Visit [facility] - Family Medicine [address] [place] [phone] Debbie Titus MD Type 2 diabetes mellitus without complication, without long-term current use of insulin (HCC) (Primary Dx) 10/24/2024 Refill [facility] - Family Medicine [address] [place] [phone] Debbie Titus MD Refill Request from Last [...] Comments Blood Pressure 136/84 10/30/2024 8:06 AM PREVENTIVE MAINTENANCE COORDINATOR Pulse 93 10/30/2024 8:06 AM PREVENTIVE MAINTENANCE COORDINATOR Temperature 36.8 C (98.2 F) 05/13/2024 9:56 AM CDT Respiratory Rate 20 05/13/2024 9:56 AM CDT Oxygen Saturation 98% 10/30/2024 8:06 AM PREVENTIVE MAINTENANCE COORDINATOR Inhaled Oxygen Concentration - - Weight 92.1 kg (203 lb) 10/30/2024 8:06 AM PREVENTIVE MAINTENANCE COORDINATOR Height 177.8 cm (5' 10 ) 10/30/2024 8:06 AM PREVENTIVE MAINTENANCE COORDINATOR Body Mass Index 29.13 10/30/2024 8:06 AM PREVENTIVE MAINTENANCE COORDINATOR Plan of Treatment Upcoming Encounters Date Type Department Care Team (Late st Contact Info) Description 02/06/2025 10:00 AM CDT Office Visit [facility] - Infectious Disease [address] [place] [phone] Edu Dawn MD [address] [place] [address] DIV [place] [address] 08/03/2025 10:00 AM CDT Office Visit [facility] - Ophthalmology [address] [place] [phone] Arpit Machado OD [address] [place] [phone] Procedures Procedure Name Priority Date/Time Associated Diagnosis Comments HEMOGLOBIN A1C - POINT OF CARE (IP) Routine 10/30/2024 8:23 AM PREVENTIVE MAINTENANCE COORDINATOR Type 2 diabetes mellitus without complication, without [...] POINT OF CARE (IP) (10/30/2024 8:23 AM PREVENTIVE MAINTENANCE COORDINATOR) Pathologist [facility] Hemoglobin A1c POCT 7.9(A) 3.4 - 6.1 % [address] QC Verified Yes Yes [address] Blood BLOOD SPECIMEN / Unknown 10/30/2024 8:23 AM PREVENTIVE MAINTENANCE COORDINATOR Debbie Titus MD LAB - POINT OF CARE ORDERABLES [address], [place] [address], [facility] [phone] * (ABNORMAL) COMPREHENSIVE METABOLIC PANEL (08/11/2024 1:00 PM CDT) Pathologist [facility] BUN 13 7 - 26 mg/dL 08/11/2024 2:14 PM [facility] Creatinine 0.73 0.71 - 1.16 mg/dL 08/11/2024 2:14 PM [facility] Sodium 140 136 - 145 mmol/L 08/11/2024 2:14 PM [facility] Potassium 3.7 3.5 - 4.5 mmol/L 08/11/2024 2:14 PM [facility] Chloride 104 98 - 107 mmol/L 08/11/2024 2:14 PM [facility] CO2 26 22 - 29 mmol/L 08/11/2024 2:14 PM [facility] Glucose 189(H) 70 - 115 mg/dL 08/11/2024 2:14 PM [facility] Calcium 9.5 8.4 - 10.2 mg/dL 08/11/2024 2:14 PM [facility] Protein Total 7.9 6.0 - 8.3 g/dL 08/11/2024 2:14 PM [facility] Albumin 4.0 3.4 - 5.0 g/dL 08/11/2024 2:14 PM [facility] Bilirubin Total 1.6(H) 0.2 - 1.2 mg/dL 08/11/2024 2:14 PM [facility] Alkaline Phosphatase 109 40 - 150 U/L 08/11/2024 2:14 PM [facility] ALT 27 5 - 55 U/L 08/11/2024 2:14 PM [facility] AST 22 5 - 34 U/L 08/11/2024 2:14 PM [facility] Anion Gap 10 6 - 16 08/11/2024 2:14 PM [facility] BUN/Creatinine Ratio 18 7 - 23 08/11/2024 2:14 PM [facility] Osmolality Calculated 295 275 - 295 mOsm/kg 08/11/2024 2:14 PM [facility] Albumin/Globulin Ratio 1.0(L) 1.1 - 2.3 08/11/2024 2:14 PM [facility] eGFR by CKD-EPI >90 >=90 mL/min/1.7 3 m2 08/11/2024 2:14 PM CDT [facility] Blood BLOOD SPECIMEN / Unknown 08/11/2024 1:00 PM CDT 08/11/2024 1:37 PM CDT Edu Dawn MD LAB - CHEMISTRY ORDE ROSA Performing Organization Address [facility] Co de Phone Number [address] [address], [facility] [phone] * MICROALB/CREAT RATIO URINE RANDOM PANEL (05/06/2024 12:49 PM CDT) Albumin Random Urine 8.0 Not Established ug/mL 05/06/2024 1:54 PM CDT [facility] Creatinine Urine 73.35 Not Established mg/dL 05/06/2024 1:54 PM CDT [facility] Urine Albumin/Creati nine Ratio 11 <30 mg/g 05/06/2024 1:54 PM CDT [facility] Urine URINE SPECIMEN OBTAINED BY CLEAN CATCH PROCEDURE / Unknown Collection / Unknown 05/06/2024 12:49 PM CDT 05/06/2024 1:25 PM CDT Debbie Titus MD LAB - URINE CHEMISTR Y ORDERABLES Performing Organization Address [facility] Co de Phone Number [address] [address], [facility] [phone] * (ABNORMAL) Diabetes Retinopathy Screening (05/06/2024 11:03 AM CDT) IDX DR SCREEN Diabetic Retinopathy Detected: ETDRS level 35 or higher and/or Diabetic Macular Edema (A) [facility] Comment: Next Steps: Refer to legal paraprofessional IDx Submission ID: [id number] Results were produced by a system that [...] nohemy Non-reac tive 04/11/2024 5:40 PM CDT [facility] Comment:Hepatitis C Antibody screen indicates [...] Dawn MD LAB - CHEMISTRY DOMINICK LEE [facility] [address] [place] [address] [phone] from Last 3 Months or Most Recently Relevant to Health Maintenance Additional Health Concerns Infection Onset Date Last Indicated MRSA 05/06/2024 05/06/2024 Care Teams Hired Worker Relationship Specialty Start Date End Date Debbie Titus MD [address] [place] [address], [place] [address] PCP - General Family Medicine 03/20/24
--- OUTSIDE RECORDS SUMMARY | 2025-01-10 17:19 | XMS_ITS | Encounter Summary ---
Author Organization [facility] Address [address] [facility] [place] [address] Care Team Providers Care Field Recruiter Name Role Phone Debbie Titus MD Primary Care Provider Reason for Visit * Reason Onset Date Comments MEDICATION REFILL 08/24/2024 Encounter Details Date Type Department Care Team (Late st Contact Info) Description 08/24/2024 Refill [facility] - Family Medicine [address] [place] [phone] Debbie Titus MD [address] [place] [address] [place] [phone] MEDICATION REFILL Social History Tobacco Use Types [...] Visit [facility] - Infectious Disease [address] [place] [phone] Edu Dawn MD [address] [place] [address] DIV [place] [address] 08/03/2025 10:00 AM CDT Office Visit [facility] - Ophthalmology [address] [place] [phone] Arpit Machado OD [address] [place] [phone] documented as of this encounter Visit Diagnoses Not on filedocumented in this encounter Additional Health Concerns Infection Onset Date Last Indicated Resolved Time MRSA 05/06/2024 05/06/2024 documented as of this encounter Care Teams Field Recruiter Relationship Specialty Start Date End Date Debbie Titus MD [address] [place] [address] [place] [phone] PCP - General Family Medicine 03/20/24 documented as of this encounter
--- OUTSIDE RECORDS SUMMARY | 2025-01-10 17:19 | XMS_ITS | Encounter Summary ---
Author Organization [facility] Address [address] [facility] [place] [address] Care Team Providers Care Sofa Inspector Name Role Phone Debbie Titus MD Primary Care Provider [phone] Reason for Visit * Reason Onset Date Comments Appointment 03/21/2024 Encounter Details Date Type Department Care Team (Late st Contact Info) Description 03/21/2024 Telephone [facility] - Hematology/Oncology [address] [place] [phone] Aldo Lindo MD [address] [place] [phone] Appointment Social History Tobacco Use [...] Group - Infectious Disease [address] [place] [phone] Edu Dawn MD [address] [place] [address] DIV [place] INF[place] [address] 08/03/2025 10:00 AM CDT Office Visit [facility] - Ophthalmology [address] [place] [address], [place] [phone] Arpit Machado OD [address] [place] [phone] documented as of this encounter Visit Diagnoses Not on filedocumented in this encounter Additional Health Concerns Infection Onset Date Last Indicated Resolved Time MRSA 05/06/2024 05/06/2024 documented as of this encounter Care Teams Sofa Inspector Relationship Specialty Start Date End Date Debbie Titus MD [address] [place] [address] [address] [place] [phone] PCP - General Family Medicine 03/20/24 documented as of this encounter
--- OUTSIDE RECORDS SUMMARY | 2025-01-10 17:19 | XMS_ITS | Clinical Summary ---
Author Organization [facility] Address [address] [facility] [place] [address] Care Team Providers Care Acupressure Therapist Name Role Phone Debbie Titus MD Primary Care Provider [phone] Source Comments [facility],non-owned Affiliates and Associated Physician Practices is amultiple site organization consisting of ambulatory clinics and hospital sitesin [place], [place], [place] and [place]. This disclosure is being madepursuant to the Care Everywhere program and may not contain all information available regarding this patient. Last updated 18.[facility] Allergies Active Allergy Reactions Criticality Noted Date [...] Type Department Care Team Description 12/28/2024 Refill [facility] Physician [facility] Family [address], [place] [address] Debbie Titus MD Refill Request 12/02/2024 Travel 11/28/2024 Refill [facility] Physician [facility] Family Medicine [address] [place] [phone] Debbie Titus MD Refill Request 10/30/2024 8:00 AM AIR COMPRESSOR ENGINEER Office Visit [facility] Physician [facility] Family [address] [phone] Debbie Titus MD Type 2 diabetes mellitus without complication, without long-term current use of insulin (HCC) (Primary Dx) 10/30/2024 Travel 10/24/2024 Refill [facility] Physician [address] [phone] Debbie Titus MD Refill Request from Last [...] Name Comments CAD (Coronary Artery Disease) Father [place] COPD - Chronic Obstructive Pulmonary Disease Mother [...] Comments Blood Pressure 136/84 10/30/2024 8:06 AM AIR COMPRESSOR ENGINEER Pulse 93 10/30/2024 8:06 AM AIR COMPRESSOR ENGINEER Temperature 36.8 C (98.2 F) 05/13/2024 9:56 AM CDT Respiratory Rate 20 05/13/2024 9:56 AM CDT Oxygen Saturation 98% 10/30/2024 8:06 AM AIR COMPRESSOR ENGINEER Inhaled Oxygen Concentration - - Weight 92.1 kg (203 lb) 10/30/2024 8:06 AM AIR COMPRESSOR ENGINEER Height 177.8 cm (5' 10 ) 10/30/2024 8:06 AM AIR COMPRESSOR ENGINEER Body Mass Index 29.13 10/30/2024 8:06 AM AIR COMPRESSOR ENGINEER Plan of Treatment Upcoming Encounters Date Type Department Care Team (Late st Contact Info) Description 02/06/2025 10:00 AM CDT Office Visit [facility] - Infectious Disease [address] [place] [phone] Edu Dawn MD [address] [place] [address] [place] [address] 08/03/2025 10:00 AM CDT Office Visit [facility]ician Group - Ophthalmology [address] [place] [phone] Arpit Machado, OD [address] [place] [address] Health Maintenance Due Date Last Done Comments [...] OF CARE (IP) Routine 10/30/2024 8:23 AM AIR COMPRESSOR ENGINEER Type 2 diabetes mellitus without complication, [...] POINT OF CARE (IP) (10/30/2024 8:23 AM AIR COMPRESSOR ENGINEER) Pathologist [facility] Hemoglobin A1c POCT 7.9(A) 3.4 - 6.1 % [facility] [address] [facility] QC Verified Yes Yes [facility] [address] [place] [address] Blood BLOOD SPECIMEN / Unknown 10/30/2024 8:23 AM AIR COMPRESSOR ENGINEER Debbie Titus MD LAB - POINT OF CARE ORDERABLES [address] [facility] [place] [address], [facility] [phone] * (ABNORMAL) COMPREHENSIVE METABOLIC PANEL (08/11/2024 1:00 PM [facility]) BUN 13 7 - 26 mg/dL 08/11/2024 2:14 PM [facility] Creatinine 0.73 0.71 - 1.16 mg/dL 08/11/2024 2:14 PM [facility] Sodium 140 136 - 145 mmol/L 08/11/2024 2:14 PM [facility] Potassium 3.7 3.5 - 4.5 mmol/L 08/11/2024 2:14 PM [facility] Chloride 104 98 - 107 mmol/L 08/11/2024 2:14 PM [facility] CO2 26 22 - 29 mmol/L 08/11/2024 2:14 PM [facility] Glucose 189(H) 70 - 115 mg/dL 08/11/2024 2:14 PM [facility] Calcium 9.5 8.4 - 10.2 mg/dL 08/11/2024 2:14 PM [facility] Protein Total 7.9 6.0 - 8.3 g/dL 08/11/2024 2:14 PM [facility] Albumin 4.0 3.4 - 5.0 g/dL 08/11/2024 2:14 PM [facility] Bilirubin Total 1.6(H) 0.2 - 1.2 mg/dL 08/11/2024 2:14 PM [facility] Alkaline Phosphatase 109 40 - 150 U/L 08/11/2024 2:14 PM [facility] ALT 27 5 - 55 U/L 08/11/2024 2:14 PM [facility] AST 22 5 - 34 U/L 08/11/2024 2:14 PM [facility] Anion Gap 10 6 - 16 08/11/2024 2:14 PM [facility] BUN/Creatinine Ratio 18 7 - 23 08/11/2024 2:14 PM [facility] Osmolality Calculated 295 275 - 295 mOsm/kg 08/11/2024 2:14 PM [facility] Albumin/Globulin Ratio 1.0(L) 1.1 - 2.3 08/11/2024 2:14 PM CDT [facility] eGFR by CKD-EPI >90 >=90 mL/min/1.7 3 m2 08/11/2024 2:14 PM CDT [facility] Blood BLOOD SPECIMEN / Unknown 08/11/2024 1:00 PM CDT 08/11/2024 1:37 PM CDT Edu Dawn MD LAB - CHEMISTRY ORDIsh LEE Performing Organization Address City/[facility] Co de Phone Number [facility] [address] [place] [phone], [facility] [phone] * MICROALB/CREAT RATIO URINE RANDOM PANEL (05/06/2024 12:49 PM CDT) Albumin Random Urine 8.0 Not Established ug/mL 05/06/2024 1:54 PM CDT [facility] Creatinine Urine 73.35 Not Established mg/dL 05/06/2024 1:54 PM CDT [facility] Urine Albumin/Creati nine Ratio 11 <30 mg/g 05/06/2024 1:54 PM CDT [facility] Urine URINE SPECIMEN OBTAINED BY CLEAN CATCH PROCEDURE / Unknown Collection / Unknown 05/06/2024 12:49 PM CDT 05/06/2024 1:25 PM CDT Debbie Titus MD LAB - URINE CHEMISTR Y ORDERABLES Performing Organization Address [facility] Co de Phone Number [address] [address], [facility] [phone] * (ABNORMAL) Diabetes Retinopathy Screening (05/06/2024 11:03 AM CDT) IDX DR SCREEN Diabetic Retinopathy Detected: ETDRS level 35 or higher and/or Diabetic Macular Edema (A) [facility]IG[facility] DIAGNOSTICS Comment: Next Steps: Refer to civil engineering professional IDx Submission ID: [id number] Results were produced by a system that [...] nohemy Non-reac tive 04/11/2024 5:40 PM CDT [facility] Comment:Hepatitis C Antibody screen [...] - CHEMISTRY DOMINICK LEE Performing Organization Address City/[facility]/ZIP Co de Phone Number [facility] [address] [place] [address], [facility] [phone] from Last 3 Months or Most Recently Relevant to Health Maintenance Additional Health Concerns Infection Onset Date Last Indicated MRSA 05/06/2024 05/06/2024 Care Teams Acupressure Therapist Relationship Specialty Start Date End Date Debbie Titus MD [address] [place] [phone] PCP - General Family Medicine 03/20/24
--- OUTSIDE RECORDS SUMMARY | 2025-01-10 17:19 | XMS_ITS | Encounter Summary ---
Author Organization [facility] Address [address] [facility] [place] [address] Care Team Providers Care Polishing Wheel Repairer Name Role Phone Debbie Titus MD Primary Care Provider [phone] Reason for Visit * Reason Onset Date Comments MEDICATION REFILL 09/22/2024 Encounter Details Date Type Department Care Team (Late st Contact Info) Description 09/22/2024 Refill [facility] - Family Medicine [address] [place] [phone] Debbie Titus MD [address] [place] [address] [place] [phone] MEDICATION REFILL Social History Tobacco Use Types [...] Visit [facility] - Infectious Disease [address] [place] [phone] Edu Dawn MD [address] [place] [address] DIV [place] [address] 08/03/2025 10:00 AM CDT Office Visit [facility] - Ophthalmology [address] [place] [phone] Arpit Machado OD [address] [place] [phone] documented as of this encounter Visit Diagnoses Diagnosis Type 2 diabetes mellitus without complication, without long-term current use of insulin (HCC) documented in this encounter Additional Health Concerns Infection Onset Date Last Indicated Resolved Time MRSA 05/06/2024 05/06/2024 documented as of this encounter Care Teams Polishing Wheel Repairer Relationship Specialty Start Date End Date Debbie Titus MD [address] [place] [address] [place] [phone] PCP - General Family Medicine 03/20/24 documented as of this encounter
[2025-01-10 18:13] LABS: Syphilis IgG/IgM Antibody Negative (Negative)
--- NOTE | 2025-01-10 18:19 | ED_ITS ---
HPI - General Adult General Chief complaint: Urogenital-Male Stated complaint: Sent by for Thrush Time Seen by Provider: 01/10/25 16:57 History of Present Illness HPI narrative: 49-year-old male presents emergency department for evaluation for irritation of the glans of his penis. Patient states symptoms started approximately 2 days ago. Patient states he is unable to retract the foreskin but is able to urinate without difficulty. Patient is HIV positive. Patient states he has been celibate for the past year and has no concern for STIs at this time. Related Data Home Medications ?Medication ?Instructions ?Recorded ?Confirmed ?Last Taken ?Type dulaglutide 1.5 mg/0.5 mL mg subcut 01/10/25 Unknown History subcutaneous pen injector (Trulicity) fluconazole 150 mg tablet mg 01/10/25 Unknown History Allergies Allergy/AdvReac Type Severity Reaction Status Date / Time Penicillins AdvReac Mild NAUSEA Verified 01/10/25 16:57 Review of Systems Review of Systems: All systems reviewed & are unremarkable except as noted in HPI and below PMFSH Past Medical History Medical History HIV disease T2DM (type 2 diabetes mellitus) Surgical History Surgical History History of colectomy Family History Family History Mother Diverticulosis COPD (chronic obstructive pulmonary disease) Father Myocardial infarction Sibling Healthy adult male Father Heart problem Social History Social History Smoking status: Never smoker Alcohol intake: never Substance use: never Do You Feel Safe in your Home?: Yes Lack of Transportation: No Lack of Food: Never True Current Housing: I Have Housing Concerned About Future Housing: No Difficulty Paying Gas/Electric Bills: No Difficulty Paying for Meds: No Currently Unemployed: No Education: High School Diploma/GED Difficulty w/ Childcare or Family Care: No Spiritual care concerns: No Agree to blood products: Yes Exam Narrative: APPEARANCE: Well appearing, no pain, no distress, well-nourished. HEAD: normocephalic, atraumatic. EYES: PERRLA/EOMI, conjunctivae clear. NOSE: Normal no drainage EARS:TMS clear with good light reflex. THROAT: Pharynx clear, no exudate. NECK: Supple. No adenopathy, no masses. RESPIRATORY: Airway patent, respirations nonlabored. Clear to auscultation bilaterally, no rales, rhonchi, wheezing. CARDIOVASCULAR: Regular rate and rhythm without murmurs rubs or gallops. ABDOMINAL: Soft, nontender, nondistended, normal bowel sounds MUSCULOSKELETAL: Moves all extremities. Strength/ROM intact, No edema, No calf tenderness. NEURO: Alert. Cranial nerves II through XII intact. Good gait. Good coordination SKIN: Warm, dry. Normal Color Genital: Excoriation of the foreskin with swelling and inability to retract the foreskin. Patient is able to urinate without issues. Some purulent discharge Course Vital Signs Vital signs: Vital Signs Temperature 97.7 F 01/10/25 16:19 Pulse Rate 94 01/10/25 16:19 Respiratory Rate 16 01/10/25 16:19 Blood Pressure 124/77 01/10/25 16:19 Pulse Oximetry 100 01/10/25 16:19 Oxygen Delivery Room Air 01/10/25 16:19 Temperature 97.7 F 01/10/25 16:19 Pulse Rate 94 01/10/25 18:31 Respiratory Rate 18 01/10/25 18:31 Blood Pressure 137/82 01/10/25 18:31 Pulse Oximetry 100 01/10/25 18:31 Oxygen Delivery Room Air 01/10/25 16:19 Medical Decision Making [facility] Narrative Medical decision making narrative: 49-year-old male presents emergency department for evaluation for balanitis. Agustín gallardo states he did take fluconazole this week. Patient was treated with IM Rocephin and p.o. doxycycline. Patient was negative for syphilis gonorrhea and chlamydia. Patient was encouraged of close follow-up with Urology. All questions concerns were addressed. Patient was educated on reasons to return to the emergency department and all questions concerns were addressed. Differential Diagnosis Differential Diagnosis: Phimosis, paraphimosis, balanitis Vital Signs Vital Signs: Vital Signs Temperature 97.7 F 01/10/25 16:19 Pulse Rate 94 01/10/25 16:19 Respiratory Rate 16 01/10/25 16:19 Blood Pressure 124/77 01/10/25 16:19 Pulse Oximetry 100 03/08/25 16:19 Oxygen Delivery Room Air 01/10/25 16:19 Temperature 97.7 F 01/10/25 16:19 Pulse Rate 94 01/10/25 18:31 Respiratory Rate 18 01/10/25 18:31 Blood Pressure 137/82 01/10/25 18:31 Pulse Oximetry 100 01/10/25 18:31 Oxygen Delivery Room Air 01/10/25 16:19 Lab Data Lab results reviewed: Yes I reviewed the patient's lab results. Labs: Lab Results 01/10/25 Range/Units 17:25 Syphilis IgG/IgM Ab Negative (Negative) C. trachomatis (PCR) Not detected (NOT DETECTE) N. gonorrhoeae (PCR) Not detected (NOT DETECTE) Discharge Plan Discharge Clinical Impression: Balanitis Patient Disposition: Home, Self-Care Condition: Stable Instructions: Antibiotic Form, Balanitis (ED) Additional Instructions: Antibiotic as directed until completed. Have close follow-up with Urology. If you have any worsening symptoms please call or return to the emergency department. Your syphilis was negative. Your chlamydia and gonorrhea are pending. Patient Language: [place] Prescriptions: New doxycycline monohydrate 100 mg capsule 100 mg PO BID 14 Days Qty: 28 0RF No Action fluconazole 150 mg tablet Trulicity 1.5 mg/0.5 mL pen injector SUBCUT cyanocobalamin (vitamin B-12) [Vitamin B-12] 1,000 mcg Tablet 1,000 mcg PO QAM Qty: 60 0RF ferrous sulfate 325 mg (65 mg iron) Tablet,Delayed Release (Dr/Ec) 325 mg PO BID Qty: 60 0RF [id number]-popocwlp-nphfdkl ala 50-200-25 mg Tablet 1 tablet PO DAILY Qty: 30 0RF Follow-up/Referrals: Adelfo Saez MD [Physician] - PHYSICIAN NOT ON STAFF,NONSTAFF [Primary Care Provider] -
[2025-01-10] MEDS: cefTRIAXone 1 GM VIAL 0.5 GM IM (18:27)
[2025-01-10] MEDS: DOXYCYCLINE HYCLATE 100 MG TABLET PO (18:28)
[2025-01-10] MEDS: LIDOCAINE 1% LOCAL INJ 10 ML VIAL (18:28)
[2025-01-10 18:31] VITALS: BP 137/82; PULSE 94; RESP 18; O2SAT 100
[2025-01-10 19:06] LABS: Chlamydia trachomatis NOT DETECTED (NOT DETECTE); Neisseria gonorrhoeae PCR NOT DETECTED (NOT DETECTE)
== END 2025-01-10 18:34 | disposition home or self-care (01) ==
PROVIDERS: Emergency Provider Emergency Medicine
DX: N48.1 Balanitis (principal); Z21 Asymptomatic human immunodeficiency virus [HIV] infection status; E11.9 Type 2 diabetes mellitus without complications
CPT/HCPCS: 36415; 86593; 87491; 87591; 96372; 99283; A9270; J0696; J2003